=== PATIENT | male | born 1955 | race Caucasian/White ===

== ENCOUNTER 2022-03-05 10:47 | Inpatient (IN) | payer MEDICAID, SELFPAY ==
[2022-03-05] VITALS (9 sets, daily range): BP systolic 116–147; BP diastolic 57–94; PULSE 74–91; RESP 17–22; TEMP 36.9–37.1; O2SAT 91–95; BMI 26.4; BMI 28.3
--- NOTE | 2022-03-05 12:23 | ECG_ITS ---
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 Measurements Intervals [place] Rate: 84 P: 69 GA: 171 QRS: -22 QRSD: 105 T: -1 QT: 382 QTc: 452 Interpretive Statements SINUS RHYTHM WITH OCCASIONAL VENTRICULAR PREMATURE COMPLEXES POSSIBLE RIGHT VENTRICULAR CONDUCTION DELAY [RSR (QR) IN V1/V2] SEPTAL MYOCARDIAL INFARCTION , OF INDETERMINATE AGE [40+ ms Q WAVE IN V1/V2] No previous ECG available for comparison Electronically Signed On 03-05-2022 21:16:41 CDT by Mitzi Moe M.D. [id number]
--- NOTE | 2022-03-05 12:23 | XRR_ITS ---
PROCEDURE INFORMATION: Exam: XR Chest Exam date and time: 03/05/2022 2:11 PM Age: 67 years old Clinical indication: Cough and dyspnea; Additional info: Dyspnea/cough TECHNIQUE: Imaging protocol: Radiologic exam of the chest. Views: 1 view. COMPARISON: No relevant prior studies available. FINDINGS: Lungs: Unremarkable. No consolidation. Pleural spaces: Unremarkable. No pleural effusion. No pneumothorax. Heart/Mediastinum: Unremarkable. No cardiomegaly. Bones/joints: Unremarkable. Other findings: Metallic postoperative changes over the cervicothoracic spine with/without metallic artifact. Mild left basilar atelectasis and/or infiltrate and/or scarring. XR/XR chest 1V portable [id number] IMPRESSION: Mild left basilar atelectasis and/or infiltrate and/or scarring.
--- NOTE | 2022-03-05 14:43 | XR_ITS ---
WS: [id number] XR hand RT min 3V* [id number] REASON FOR EXAM: R hand ulcer FINDINGS: No fracture. Mild to moderate changes of osteoarthritis in the joints of the thumb and the DIP joints of the secon d through the fifth fingers. No erosion or periosteal reaction is seen. No radiopaque foreign body in the soft tissues. Vascular calcification overlying the radial ulnar joint. XR/XR hand RT min 3V* [id number] IMPRESSION: Mild to moderate changes of osteoarthritis with no acute abnormality.
[2022-03-05 14:44] LABS: Basophils # 0.1 10^3/uL (0.0-0.1); Basophils % 0.5 %; Eosinophils % 0.2 %; Hematocrit 36.6 % (42.0-52.0); Lymphocytes # 0.8 10^3/uL (0.8-4.8); Lymphocytes % 4.9 %; Mean Corpuscular HGB Conc 32.8 g/dL (30.0-36.0); Mean Corpuscular Hemoglobin 28.4 pg (28.0-34.0); Mean Corpuscular Volume 86.7 fl (80-94); Mean Platelet Volume 10.1 fL (7.4-10.4); Monocytes # 0.6 10^3/uL (0.2-0.9); Monocytes % 3.8 %; Neutrophils # 14.26 10^3/uL (1.8-7.7); Neutrophils % 87.9 %; Nucleated Red Blood Cells % 0 %; Platelet Count 378 10^3/cmm (130-400); Red Blood Count 4.22 10^6/uL (4.1-5.3); Red Cell Distribution Width 15.5 % (12.1-15.1); White Blood Count 16.2 10^3/uL (4.0-10.0)
--- NOTE | 2022-03-05 14:44 | USCV_ITS ---
Nemesio Newberry Age: 67 Gender: M : 1955 Exam Date: 03/05/2022 15:02 Ordering Phys: Oren Nesbitt MD Technologist: Noble Dover Exam Location: [facility] [place]_ Indication: swelling PROCEDURES: Venous duplex imaging was performed in bilateral lower extremities. The following venous structures were evaluated: common femoral vein, profunda vein, proximal portion of the greater saphenous vein, superficial femoral vein, and the popliteal vein. In addition, the posterior tibial and peroneal trunk were evaluated. Serial compression, augmentation maneuvers, and spectral Doppler flow evaluation were performed. FINDINGS: Normal 2-D Doppler and augmentation and compressibility throughout the lower extremity venous structures. Additional imaging through the proximal calf veins also reveals no thrombus. Limited evaluation of the greater saphenous vein is patent with no thrombus.. CONCLUSIONS No evidence of right lower extremity DVT. No evidence of left lower extremity DVT. Anselmo Kim MD (Electronically Signed) Final Date: 05 March 2022 17:38 S
[2022-03-05 15:11] LABS: Troponin(5th) Baseline 36 ng/L (0-15)
[2022-03-05 15:13] LABS: Alanine Aminotransferase 44 U/L (0-41); Albumin Level 2.9 g/dL (3.5-5.2); Alkaline Phosphatase 94 IU/L (40-130); Anion Gap 15.2 (5-19); Aspartate Amino Transferase 42 U/L (0-40); Blood Urea Nitrogen 29 mg/dL (8-23); Calcium 8.7 mg/dL (8.5-10.5); Carbon Dioxide 29 mmol/L (22-29); Chloride 92 mmol/L (98-107); Creatinine Clr Calc Pharmacy 93.5858; Globulin 4.2 g/dL (1.3-4.6); Glomerular Filtration Rate 83.9 mL/min (90-130); Glucose 104 mg/dL (65-115); Osmolality Calculated 282 mOsm/kg (285-295); Potassium 3.2 mmol/L (3.5-5.1); Sodium 133 mmol/L (136-145); Total Bilirubin 0.8 mg/dL (0.15-1.2); Total Protein 7.1 g/dL (6.6-8.7)
[2022-03-05 15:29] LABS: C Reactive Protein 225.9 mg/L (0.0-4.9)
--- NOTE | 2022-03-05 15:43 | W.ED.GENADLT ---
HPI - General Adult General: Chief complaint: Shortness of Breath/Dyspnea Stated complaint: SOB Time Seen by Provider: 03/05/22 14:00 History of Present Illness: Patient is a 67-year-old male with a history of hypothyroidism, paroxysmal atrial fibrillation on Eliquis presenting to the emergency room for concerns of shortness of breath, generalized weakness, and not feeling well. Patient tells me that he has been feeling this way for few days now. In addition, patient has symptoms of dysuria without flank pain nausea/vomiting, fever or chills. Patient states that she has a cut over. Patient tells me that he is chronically bedbound because of the swelling in his leg. Patient report redness on his right leg has been going on for the last few weeks. In addition, patient also referred an ulcer on his right hand for few weeks. Patient denies any IV drug use denies any history of diabetes. Patient tells me that his legs are swollen and he has had difficulty moving. Patient reports ongoing cough. Onset:2 weeks Duration:2 weeks Location:home Severity:moderate Associated symptoms: Reports dyspnea and malaise; Deny chest pain, nausea, rash, palpitations or vomiting Review of Systems Const: Reports: chills, malaise and other (+generalized weakness); Denies: fever(s) Eyes: Denies: change in vision ENMT: Denies: mouth pain Card: Denies: chest pain or palpitations Resp: Reports: dyspnea; Denies: non-productive cough GI: Denies: abdominal pain, nausea, vomiting or diarrhea : Denies: dysuria Musc: Denies: extremity pain Skin/Breast: Denies: rash or new lesions Neuro: Denies: weakness in extremities Psych: Reports: other (Normal mood) Dante/Lymph: Denies: easy bruising PFS ED PFSH: Medical History (Updated 03/05/22 @ 18:56 by Jovan Clarke MD) Atrial fibrillation DVT (deep venous thrombosis) Hypothyroidism Pulmonary embolism Surgical History (Updated 03/05/22 @ 18:56 by Jovan Clarke MD) H/O cervical spine surgery History of tonsillectomy Social History Smoking and tobacco status: never smoked Alcohol intake: never Substance/Drug Use: never Physical Exam Const: COMMON NORMALS: alert HENMT: COMMON NORMALS: atraumatic HEAD & SCALP: atraumatic MOUTH: moist mucous membranes not abnormal Eye: COMMON NORMALS: EOMs intact bilaterally and conjunctivae normal CONJUNCTIVA: Yes conjunctivae normal Neck/C-Spine: COMMON NORMALS: full ROM and supple Resp: COMMON NORMALS: normal respiratory effort and clear to auscultation bilaterally AUSCULTATION: clear to auscultation bilaterally Cardio: COMMON NORMALS: regular rate RATE: regular rate GI: COMMON NORMALS: Soft to palpation and non-tender PALPATION: Yes Soft to palpation Extremity: COMMON NORMALS: full ROM Neuro: SENSORIUM/ORIENTATION: Yes alert MOTOR EXAM: No Abnormal motor strength present and Other motor observations present (no focal motor deficits) Psych: COMMON NORMALS: speech normal SPEECH: Yes normal speech MOOD & AFFECT: Yes euthymic mood Course Vital Signs: Vital signs: Vital Signs Temperature 98.7 F 03/05/22 16:30 Pulse Rate 79 03/05/22 18:30 Respiratory Rate 18 03/05/22 17:30 Blood Pressure 116/57 03/05/22 17:30 Pulse Oximetry 93 03/05/22 18:30 [facility] - General Adult Medical Decision Making 67-year-old male with a history of proximal atrial fibrillation, hypothyroidism presenting to the emergency room with respiratory distress, generalized weakness, fatigue worsening over the last 2 weeks. On physical exam, patient is noted to have coarse breath sounds bilaterally. Patient has O2 sat of 90 to 91% on room air. X-rays show left-sided infiltrate versus atelectasis. Patient started back on 16.2. Patient is noted to be satting at 91 to 90% on room air. No prior requirement of oxygen. CTA is pending at this time. Patient is noted to have erythema over the right leg. This is concerning for soft possible venous stasis versus cellulitis. Patient received vancomycin, azithromycin and ceftriaxone. Ultrasound lower extremities negative for DVT. Incidental findings of 44mm thoracic aortia discussed extensively with patient. Patient received a copy of the CT report with the documented findings. Patient is instructed to follow up urgently with specialists. Disposition: admission Lab Data : 03/05/22 14:30 03/05/22 14:30 Radiology Impressions Chest X-Ray 03/05/22 12:23 IMPRESSION: Mild left basilar atelectasis and/or infiltrate and/or scarring. Hand X-Ray 03/05/22 14:43 IMPRESSION: Mild to moderate changes of osteoarthritis with no acute abnormality. Chest CTA 03/05/22 16:47 IMPRESSION: 1. 44 mm ascending aortic aneurysm without rupture. 2. Mild right axillary adenopathy which may be reactive. 3. No pulmonary embolus or aortic dissection. 4. Severe fatty infiltration of the liver. Laboratory Results WBC 16.2 10^3/uL (4.0-10.0) H 03/05/22 14:30 RBC 4.22 10^6/uL (4.1-5.3) 03/05/22 14:30 Hgb 12.0 g/dL (11.7-16.6) 03/05/22 14:30 Hct 36.6 % (42.0-52.0) L 03/05/22 14:30 MCV 86.7 fl (80-94) 03/05/22 14:30 MCH 28.4 pg (28.0-34.0) 03/05/22 14:30 MCHC 32.8 g/dL (30.0-36.0) 03/05/22 14:30 RDW 15.5 % (12.1-15.1) H 03/05/22 14:30 Plt Count 378 10^3/cmm (130-400) 03/05/22 14:30 MPV 10.1 fL (7.4-10.4) 03/05/22 14:30 Neut % (Auto) 87.9 % 03/05/22 14:30 Lymph % (Auto) 4.9 % 03/05/22 14:30 [place] % (Auto) 3.8 % 03/05/22 14:30 Eos % (Auto) 0.2 % 03/05/22 14:30 Baso % (Auto) 0.5 % 03/05/22 14:30 Neut # (Auto) 14.26 10^3/uL (1.8-7.7) H 03/05/22 14:30 Lymph # (Auto) 0.8 10^3/uL (0.8-4.8) 03/05/22 14:30 [place] # (Auto) 0.6 10^3/uL (0.2-0.9) 03/05/22 14:30 Eos # (Auto) 0.0 10^3/uL (0.0-0.8) 03/05/22 14:30 Baso # (Auto) 0.1 10^3/uL (0.0-0.1) 03/05/22 14:30 Nucleated RBC % (auto) 0 % 03/05/22 14:30 Nucleated RBCs # 0.0 /100WBC 03/05/22 14:30 Sodium 133 mmol/L (136-145) L 03/05/22 14:30 Potassium 3.2 mmol/L (3.5-5.1) L 03/05/22 14:30 Chloride 92 mmol/L (98-107) L 03/05/22 14:30 Carbon Dioxide 29 mmol/L (22-29) 03/05/22 14:30 Anion Gap 15.2 (5-19) 03/05/22 14:30 BUN 29 mg/dL (8-23) H 03/05/22 14:30 Creatinine 0.9 mg/dL (0.7-1.2) 03/05/22 14:30 GFR Calculation 83.9 mL/min (90-130) L 03/05/22 14:30 Glucose 104 mg/dL (65-115) 03/05/22 14:30 Calculated Osmolality 282 mOsm/kg (285-295) L 03/05/22 14:30 Calcium 8.7 mg/dL (8.5-10.5) 03/05/22 14:30 Total Bilirubin 0.8 mg/dL (0.15-1.2) 03/05/22 14:30 AST 42 U/L (0-40) H 03/05/22 14:30 ALT 44 U/L (0-41) H 03/05/22 14:30 Alkaline Phosphatase 94 IU/L (40-130) 03/05/22 14:30 Troponin T Baseline 36 ng/L (0-15) H 03/05/22 14:30 C-Reactive Protein 225.9 mg/L (0.0-4.9) H 03/05/22 14:50 Total Protein 7.1 g/dL (6.6-8.7) 03/05/22 14:30 Albumin 2.9 g/dL (3.5-5.2) L 03/05/22 14:30 Globulin 4.2 g/dL (1.3-4.6) 03/05/22 14:30 Imaging Data Other Imaging: Radiologist's impression: [facility] [address] [place] [address] XRay Report Signed Patient: Nemesio Newberry Unit #: [id number] : 1955 Age/Sex: 67 / M ADM Date: 03/05/22 Loc: ER Room/Bed: Attending Dr: Ordering Provider/Ordering MD: Oren Nesbitt MD Date of Service: 03/05/22 Procedure(s): XR hand RT min 3V* [id number] Accession Number(s): [id number] Report Number: [id number] WS: [id number] XR hand RT min 3V* [id number] REASON FOR EXAM: R hand ulcer FINDINGS: No fracture. Mild to moderate changes of osteoarthritis in the joints of the thumb and the DIP joints of the second through the fifth fingers. No erosion or periosteal reaction is seen. No radiopaque foreign body in the soft tissues. Vascular calcification overlying the radial ulnar joint. XR/XR hand RT min 3V* [id number] IMPRESSION: Mild to moderate changes of osteoarthritis with no acute abnormality. ? ? Dictated By: Josue Scales Jr, MD Signed By: Josue Scales Jr, MD Signed Date/Time: 03/05/22 1526 DD/ [address] [address] XRay Report Signed Patient: Nemesio Newberry Unit #: [id number] : 1955 Age/Sex: 67 / M ADM Date: 03/05/22 Loc: ER Room/Bed: Attending Dr: Ordering Provider/Ordering MD: Felix Polo DO Date of Service: 03/05/22 Procedure(s): XR chest 1V portable [id number] Accession Number(s): [id number] Report Number: [id number] PROCEDURE INFORMATION: Exam: XR Chest Exam date and time: 03/05/2022 2:11 PM Age: 67 years old Clinical indication: Cough and dyspnea; Additional info: Dyspnea/cough TECHNIQUE: Imaging protocol: Radiologic exam of the chest. Views: 1 view. COMPARISON: No relevant prior studies available. FINDINGS: Lungs: Unremarkable. No consolidation. Pleural spaces: Unremarkable. No pleural effusion. No pneumothorax. Heart/Mediastinum: Unremarkable. No cardiomegaly. Bones/joints: Unremarkable. Other findings: Metallic postoperative changes over the cervicothoracic spine with/without metallic artifact. Mild left basilar atelectasis and/or infiltrate and/or scarring. XR/XR chest 1V portable [id number] IMPRESSION: Mild left basilar atelectasis and/or infiltrate and/or scarring. ? Dictated By: Bret Jorge MD Signed By: Bret Jorge MD Signed Date/Time: 03/05/227 DD/ 141 Launch?Image [facility] [address] [place] [address] Scan Report Signed Patient: Nemesio Newberry Unit #: [id number] : 1955 Age/Sex: 67 / M ADM Date: 03/05/22 Loc: [facility] Room/Bed: [facility] Attending Dr: Jovan Clarke MD Ordering Provider/Ordering MD: Oren Nesbitt MD Date of Service: 03/05/22 Procedure(s): CT angio chest PE protcl [id number] Accession Number(s): [id number] Report Number: [id number] PROCEDURE INFORMATION: Exam: CTA Chest With Contrast Exam date and time: 03/05/2022 6:24 PM Age: 67 years old Clinical indication: Shortness of breath; Prior surgery; Surgery type: Cervical fusion; Patient HX: C/O SOB. Hypoxic on monitor. ; Additional info: Immobility, hypoxemia, fatigue TECHNIQUE: Imaging protocol: Computed tomographic angiography of the chest with contrast. 3D rendering (Not supervised by radiologist): MIP and/or 3D reconstructed images were created by the technologist. Radiation optimization: All CT scans at this facility use at least one of these dose optimization techniques: automated exposure control; mA and/or kV adjustment per patient size (includes targeted exams where dose is matched to clinical indication); or iterative reconstruction. Contrast material: OMNI 350; Contrast volume: 70 ml; Contrast route: INTRAVENOUS (IV);? COMPARISON: CR XR chest 1V portable [id number] 03/05/2022 2:11 PM RADIATION DOSE METRICS: Total DLP (mGy-cm): 581.61 FINDINGS: Pulmonary arteries: No pulmonary embolus or aortic dissection. Great vessels off aortic arch: Aberrant origin of the right subclavian artery which is usually not associated with other congenital heart disease. This is essentially a normal variant. Aorta: Calcification of the thoracic aorta and/or great vessels consistent with atherosclerotic vessel disease. 44 mm ascending aortic aneurysm without rupture. Lungs: Mild bibasilar atelectasis and/or infiltrate and/or scarring. Pleural spaces: Unremarkable. No pneumothorax. No pleural effusion. Heart: See Great vessels off aortic arch finding. Lymph nodes: Mild right axillary adenopathy which may be reactive. Liver: Severe fatty infiltration of the liver. Bones/joints: Dextroscoliosis. Moderate thoracic spondylosis. Lower cervical laminectomies with metallic fixation. Soft tissues: Unremarkable. CT/CT angio chest PE protcl [id number] IMPRESSION: 1. 44 mm ascending aortic aneurysm without rupture. 2. Mild right axillary adenopathy which may be reactive. 3. No pulmonary embolus or aortic dissection. 4. Severe fatty infiltration of the liver. ? Dictated By: Bret Jorge MD Signed By: Bret Jorge MD Signed Date/Time: 03/05/221908 DD/ 23 Discharge Plan Discharge Patient Disposition: Admitted As Inpatient Admit Provider: Jovan Clarke Clinical Impression: Pneumonia, Cellulitis Condition: Stable Coding Level of Care Code ED Box Sealing Machine Catcher for Chg Fwd Exam Comprehensive
--- NOTE | 2022-03-05 16:40 | PC.NURSE ---
Report received from ADELIA Velez. Patient cleaned of urinary incontinence. Redness noted to right upper and lower extremity. Coccyx is red, beginning stages of breakdown noted. Scabbing noted to scrotum.
--- NOTE | 2022-03-05 16:47 | CTR_ITS ---
PROCEDURE INFORMATION: Exam: CTA Chest With Contrast Exam date and time: 03/05/2022 6:24 PM Age: 67 years old Clinical indication: Shortness of breath; Prior surgery; Surgery type: Cervical fusion; Patient HX: C/O SOB. Hypoxic on monitor. ; Additional info: Immobility, hypoxemia, fatigue TECHNIQUE: Imaging protocol: Computed tomographic angiography of the chest with contrast. 3D rendering (Not supervised by radiologist): MIP and/or 3D reconstructed images were created by the technologist. Radiation optimization: All CT scans at this facility use at least one of these dose optimization techniques: automated exposure control; mA and/or kV adjustment per patient size (includes targeted exams where dose is matched to clinical indication); or iterative reconstruction. Contrast material: OMNI 350; Contrast volume: 70 ml; Contrast route: INTRAVENOUS (IV); COMPARISON: CR XR chest 1V portable [id number] 03/05/2022 2:11 PM RADIATION DOSE METRICS: Total DLP (mGy-cm): 581.61 FINDINGS: Pulmonary arteries: No pulmonary embolus or aortic dissection. Great vessels off aortic arch: Aberrant origin of the right subclavian artery which is usually not associated with other congenital heart disease. This is essentially a normal variant. Aorta: Calcification of the thoracic aorta and/or great vessels consistent with atherosclerotic vessel disease. 44 mm ascending aortic aneurysm without rupture. Lungs: Mild bibasilar atelectasis and/or infiltrate and/or scarring. Pleural spaces: Unremarkable. No pneumothorax. No pleural effusion. Heart: See Great vessels off aortic arch finding. Lymph nodes: Mild right axillary adenopathy which may be reactive. Liver: Severe fatty infiltration of the liver. Bones/joints: Dextroscoliosis. Moderate thoracic spondylosis. Lower cervical laminectomies with metallic fixation. Soft tissues: Unremarkable. CT/CT angio chest PE protcl [id number] IMPRESSION: 1. 44 mm ascending aortic aneurysm without rupture. 2. Mild right axillary adenopathy which may be reactive. 3. No pulmonary embolus or aortic dissection. 4. Severe fatty infiltration of the liver.
[2022-03-05] MEDS: cefTRIAXone 1,000 MG in sodium chloride 0.9% (plus) 50 ML 100 MG IV (17:27)
--- NOTE | 2022-03-05 17:32 | PC.NURSE ---
Patient repositioned on right side and given urinal.
[2022-03-05 17:40] LABS: Troponin 5 2HR 33.18 ng/L (0-15)
[2022-03-05 17:41] LABS: Troponin 5 2HR Delta -2.82 ABS# (0-10)
--- NOTE | 2022-03-05 18:23 | ECG_ITS ---
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 Measurements Intervals [place] Rate: 75 P: 60 NV: 166 QRS: -1 QRSD: 105 T: 8 QT: 403 QTc: 451 Interpretive Statements SINUS RHYTHM SEPTAL MYOCARDIAL INFARCTION , PROBABLY OLD [40+ ms Q WAVE IN V1/V2] Compared to ECG 03/05/2022 14:43:44 Ventricular premature complex(es) no longer present Myocardial infarct finding still present Electronically Signed On 03-06-2022 20:49:54 CDT by Akash Laboy M.D. [email or web address].[employer]/store/OM/[id number]/[id number]
--- NOTE | 2022-03-05 18:25 | PM.HP ---
Providers/Chief Complaint Admitting Physician: Jovan Clarke MD Chief Complaint: SOB History of Present Illness Nemesio Newberry is a 67 year old male who is wheelchair-bound secondary to his spine surgery which she is attributing to a mass in his spine which was compressing his nerves, hypertensive, lives with his girlfriend, vaccinated for COVID-19 presented today with chief complaint of not able to get up on his own and shortness of breath. Patient is stating that for last 6 months he has been using wheelchair, today when he got up he was not able to transfer himself out of the bed to a wheelchair normally he is able to do so without any difficulty but today he became extremely short of breath. No recent fever, diarrhea, chest pain, orthopnea PND. Diagnosis in the ER revealed leukocytosis, purulent cellulitis of his legs, there is erythema, he is already on Eliquis for DVT of his legs, he also has history of PE His girlfriend takes care of him at home, He has been administered IV antibiotics, he was on fluids when I saw him I have requested Harrington catheter placement, Lasix, discontinuation of IV fluids, COVID PCR at this point he is requiring 2 L of oxygen, he is mildly tachypneic having conversational dyspnea, mild vascular congestion on chest x-ray Review of Systems Const: Reports: chills and body aches Eyes: Denies: change in vision ENMT: Denies: throat pain Card: Reports: swelling of feet/ankles and dyspnea on exertion; Denies: chest pain Resp: Reports: dyspnea GI: Denies: abdominal pain : Denies: flank pain Musc: Reports: extremity pain, joint redness and joint warmth Skin/Breast: Reports: rash, erythema, skin tenderness and skin swelling Neuro: Denies: headache(s) Psych: Denies: anxiety Endo: Denies: polyuria Dante/Lymph: Denies: easy bruising All/Imm: Denies: urticaria Medications/Allergies Home Medications Medication Instructions Recorded Confirmed Last Taken Type apixaban 5 mg tablet (Eliquis) 5 mg PO BID 03/05/22 03/05/22 03/05/22 History duloxetine 30 mg capsule,delayed 30 mg PO DAILY 03/05/22 03/05/22 03/05/22 History release gabapentin 600 mg tablet 600 mg PO QID 03/05/22 03/05/22 03/05/22 History hydrochlorothiazide 25 mg tablet 25 mg PO DAILY 03/05/22 03/05/22 03/05/22 History levothyroxine 112 mcg tablet 112 mcg PO DAILY 03/05/22 03/05/22 03/05/22 History pantoprazole 40 mg tablet,delayed 40 mg PO DAILY 03/05/22 03/05/22 03/05/22 History release tizanidine 4 mg tablet 4 mg PO BID PRN 03/05/22 03/05/22 Unknown History Allergies Allergy/AdvReac Type Severity Reaction Status Date / Time Penicillins Allergy Unknown Verified 03/05/22 14:11 PFSH Acute PFSH: Medical History (Updated 03/05/22 @ 18:56 by Jovan Clarke MD) Atrial fibrillation DVT (deep venous thrombosis) Hypothyroidism Pulmonary embolism Surgical History (Updated 03/05/22 @ 18:56 by Jovan Clarke MD) H/O cervical spine surgery History of tonsillectomy Social History Smoking and tobacco status: never smoked Alcohol intake: never Substance/Drug Use: never Vitals/I&O/Wt Last Vital Signs Temp 98.7 F 03/05/22 16:30 Pulse 77 03/05/22 17:30 Resp 18 03/05/22 17:30 BP 116/57 03/05/22 17:30 Pulse Ox 93 03/05/22 17:30 Weight last 48 hrs Weight 90.718 kg Physical Exam Narrative: Patient has unkept appearance Poor hygiene He is well himself with his own urine Currently on 2 L, No adventitious rhonchi or crackles Tachypneic Has mild conversational dyspnea Afebrile Hemodynamically stable Awake and alert Purulent cellulitis of right dorsal side of his hand Bilateral extremity erythema with purulent cellulitis of right leg with sloughing of skin Erythema extending all the way up to his knees Awake and alert Toxic appearance Abdomen soft Poor skin hygiene Data : 03/05/22 14:30 03/05/22 14:30 Micro: Microbiology 03/05/22 16:50 Blood Culture - Preliminary Blood SPECIMEN COLLECTED 03/05/22 16:50 Blood Culture - Preliminary Blood SPECIMEN COLLECTED A&P Assessment and plan (1) Cellulitis: Status: Acute (2) Pneumonia: Status: Acute Plan purulent cellulitis I will start him on vancomycin and aztreonam he has penicillin allergies Check CRP, he is already on Eliquis No signs of DVT for Edema of legs I would use Lasix Wound care with Martín wrap, Kerlix, bacitracin ointment twice a day Acute hypoxia related to left-sided pneumonia chest x-ray consistent with mild vascular congestion and atelectasis Currently on antibiotics DuoNeb treatment Check COVID PCR Check BNP Hypokalemia: Repleted Hypothyroid: Continue with oxygen at 112 mcg Full code Cardiac diet DVT prophylaxis will be covered with home regimen of Eliquis Because of history of PE and DVT of bilateral lower extremities and right upper arm superficial vein clot Attestations Medical Necessity Statement*: Anticipating discharge within 48 hours Time Spent in Patient Care: 35 Coding Level of Care Code Acute Drop Wire Aliner for Shailesh Ewing Diagnoses Cellulitis L03.90 Pneumonia J18.9
[2022-03-05] MEDS: iohexol 350 mg/mL 100 mL Btl IV (18:35)
--- NOTE | 2022-03-05 18:41 | PC.NURSE ---
Report called to ADELIA Joés. Patient cleaned of urinary incontinence
[2022-03-05] MEDS: azithromycin 500 MG in sodium chloride 0.9% 250 ML 250 MG IV (18:47)
--- NOTE | 2022-03-05 19:08 | PC.NURSE ---
Report to ADELIA Louis
--- NOTE | 2022-03-05 20:30 | PC.PHAR ---
Vancomycin is dosed at 1500mg IVPB every 12 hours to produce a predicted trough level of 15.82 (population based pharmacokinetic analysis). A trough level has been ordered from the lab to be obtained before the fourth dose to confirm and adjust if needed.
[2022-03-05 20:57] LABS: Troponin 5 6HR 39.79 ng/L (0-15)
[2022-03-05 21:01] LABS: Troponin 5 6HR Delta 3.79 ng/L (0-12)
[2022-03-05 21:03] LABS: Glucose Point of Care 111 mg/dL (70-110)
[2022-03-05 21:05] LABS: NT Pro B Type Natriuretic Pept 684 pg/mL (0-125); Procalcitonin 0.48 ng/mL (0-0.5)
[2022-03-05] MEDS: potassium chloride ER 20 mEq Tablet 40 MEQ PO (21:23)
[2022-03-05] MEDS: vancomycin 1,500 MG/300 ML PIGGYBACK 150 MG IV (21:24)
[2022-03-05] MEDS: gabapentin 300 mg Capsule 600 MG PO (21:24)
[2022-03-05] MEDS: ipratropium-albuterol 3 mL Neb INHALATION (21:51)
[2022-03-05] MEDS: budesonide 0.5 mg/2 mL Neb INHALATION (21:52)
[2022-03-05 22:18] LABS: ABG PCO2 40.5 mmHg (35-45); ABG PH Result 7.51 (7.35-7.45); Base Excess ABG 8.5 mmol/L (-2.0-2.0); Blood Gas Allen Test Pos; Blood Gas Operator Identificat JB; Blood Gas Sample Site Radial, right; Blood Gas Sample Type Arterial; HCO3 ABG 32.4 mmol/L (22-26); Oxygen Device NC; PO2 ABG 49.3 mmHg (80.0-100.0)
[2022-03-05 23:44] LABS: Estmated Average Glucose 123; Hemoglobin A1C 5.9 % (4.0-6.0)
[2022-03-06] VITALS (7 sets, daily range): PULSE 57–76; RESP 16–23; O2SAT 92–97
[2022-03-06] MEDS: bacitracin ointment Pkt 1 EACH TOPICAL ×3 (00:04→21:44)
[2022-03-06 01:57] LABS: Add Urine Culture? Yes; Add Urine Microscopic? YES; Bacteria Urine 2+ /hpf; Bilirubin Urine Neg (Negative); Blood Urine 3+ (Negative); Glucose Urine UA Norm (Normal); Ketones Urine 1+ (Negative); Leukocyte Esterase Urine Negative (Negative); Nitrate Urine Negative (Negative); Protein Urine 1+ (Negative); RBC Urine TOO NUMEROUS TO CNT /hpf (0-2); Squamous Epithelial Cell Urine 0-4 /hpf (0-5); Urine Appearance Clear (CLEAR); Urine Color Yellow (Yellow); Urobilinogen Urine 1 mg/dL (Negative); WBC Urine 0-4 /hpf (0-5); pH Urine 5 (5-7)
[2022-03-06] MEDS: ipratropium-albuterol 3 mL Neb INHALATION ×3 (03:35→20:20)
[2022-03-06] MEDS: morphine IR 15 mg Tablet PO (05:44)
[2022-03-06 06:30] LABS: Glucose Point of Care 104 mg/dL (70-110)
[2022-03-06] MEDS: budesonide 0.5 mg/2 mL Neb INHALATION ×2 (08:19→20:20)
--- NOTE | 2022-03-06 10:32 | PM.PN ---
Subjective Subjective: Patient is stating that he is feeling slightly better, he used BiPAP overnight until 6 AM, he was asking for breakfast tray Is able to change his position in the bed No acute worsening of his erythema and cellulitis of upper and lower extremity No active complaints Fatigued and lethargic COVID PCR is pending Afebrile Vitals/I&O/Wt Last Vital Signs Temp 98.7 F 03/05/22 16:30 Pulse 65 03/06/22 08:07 Resp 17 03/06/22 08:07 BP 116/57 03/05/22 17:30 Pulse Ox 94 03/06/22 08:07 03/05/22 03/06/22 03/06/22 22:59 06:59 14:59 Intake Total 420 / 420 0 / 420 Output Total 300 / 300 400 / 700 Balance 120 / 120 -400 / -280 Weight last 48 hrs Weight 94.801 kg Weight 90.718 kg Physical Exam Narrative: Patient is in semi-Joseph position Currently on 3 L No active respiratory distress Fatigued and lethargic He is asking for food tray Abdomen soft Unkept appearance Poor hygiene No worsening of erythema and cellulitis of his right hand and right lower extremity Nonfocal neuro exam Patient is wheelchair-bound S1, S2 No rhonchi or crackles Urinary Catheter Management: Harrington: Cath Placed During This Visit: no Reason for Continuing Indwelling Catheter: Acute Urinary Retention or Obstruction Data : 03/05/22 14:30 03/05/22 14:30 Micro: Microbiology 03/05/22 16:50 Blood Culture - Preliminary Blood SPECIMEN COLLECTED 03/05/22 16:50 Blood Culture - Preliminary Blood SPECIMEN COLLECTED A&P Assessment and plan (1) Pneumonia: Status: Acute (2) Cellulitis: Status: Acute (3) Wheelchair bound: Status: Acute Plan Acute hypoxic Rule out COVID-19 Concern for left-sided pneumonia No fever No signs of sepsis Acute heart failure EF unknown BNP 648, continue IV Lasix Request echo Patient is wheelchair-bound secondary to trauma to his spine and spine surgery Harrington catheter has been placed to facilitate him, At home he uses wheelchair to ambulate He has a Gfriend who takes care of him Purulent cellulitis of right lower extremity No signs of DVT No signs of PE Currently on broad-spectrum antibiotics Potassium repleted Hematuria on UA noted no signs of UTI Full code Cardiac diet 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
--- NOTE | 2022-03-06 10:37 | USCV_ITS ---
Tayo Newberry Age: 67 Gender: M : 1955 Exam Date: 03/06/2022 13:24 Ordering Phys: Jovan Clarke MD Technologist: Riki Villela Exam Location: [facility] [place] Indication: CHF BP: 132 / 83 HR: 68 Rhythm: Sinus Technical Quality: MEASUREMENTS (Male / Female) Normal Values 2D ECHO LV Diastolic Diameter PLAX 5.7 cm 4.2 - 5.9 / 3.9 - 5.3 cm LV Systolic Diameter PLAX 3.5 cm IVS Diastolic Thickness 1.1 cm 0.6 - 1.0 / 0.6 - 0.9 cm IVS Systolic Thickness 1.6 cm LVPW Diastolic Thickness 1.1 cm 0.6 - 1.0 / 0.6 - 0.9 cm LVPW Systolic Thickness 1.4 cm LVOT Diameter 2.1 cm LV Ejection Fraction 2D Teich 68.7 % LA Diameter 3.5 cm Aorta at Sinotubular Diameter 3.2 cm M-MODE Aortic Annulus Diameter 4.5 cm LA Ao Ratio MM 0.9 MV E Point Septal Separation 0.7 cm DOPPLER AV Peak Velocity 166.0 cm/s LVOT Peak Velocity 109.0 cm/s AV Area Cont Eq vti 2.3 cm squared AV Area Cont Eq pk 2.2 cm squared MV Area PHT 2.6 cm squared Mitral E to A Ratio 1.4 MV E' Velocity 72.0 cm/s Mitral E to MV E' Ratio 8.8 Mitral E to LV E' Lateral Ratio 7.0 Mitral E to LV E' Septal Ratio 11.7 TR Peak Velocity 255.0 cm/s TR Peak Gradient 26.0 mmHg TV Peak E Velocity 78.0 cm/s Right Atrial Pressure 3.0 mmHg Pulmonary Artery Systolic Pressu 29.0 mmHg PV Peak Velocity 108.0 cm/s FINDINGS Left Ventricle Normal left ventricular size and systolic function, EF 69%mild left ventricular hypertrophy. No regional wall motion abnormalities. Right Ventricle The right ventricle is normal in size and function. Right Atrium The right atrium is normal in size. Left Atrium The left atrium is normal in size. Mitral Valve Thickened mitral valve. Mild mitral valve regurgitation. Aortic Valve Thickened aortic valve. Whiy-br-[id number] aortic valve regurgitation. Tricuspid Valve Trace tricuspid valve regurgitation. Estimated pulmonary artery peak systolic pressure of 29 mmHg Pulmonic Valve No gross abnormalities noted Pericardium Normal pericardium without effusion. Aorta Normal ascending aorta dimension. IVC Inferior vena cava not visualized. CONCLUSIONS Normal left ventricular size and systolic function, EF 69%mild left ventricular hypertrophy. No regional wall motion abnormalities. Thickened mitral valve. Mild mitral valve regurgitation. Thickened aortic valve. Ayng-ep-svgeejch aortic valve regurgitation. Trace tricuspid valve regurgitation. Estimated pulmonary artery peak systolic pressure of 29 mmHg. There is no pericardial effusion. There are no intracardiac masses. No similar previous studies are available for comparison Dr Mitzi Moe MD [facility] (Electronically Signed) Final Date: 07 March 2022 00:46 S
[2022-03-06] MEDS: vancomycin 1,500 MG/300 ML PIGGYBACK 150 MG IV ×2 (11:01→21:44)
[2022-03-06] MEDS: FUROsemide 10 mg/mL SDV 10mL 60 MG IVP (11:06)
[2022-03-06] MEDS: apixaban 5 mg Tablet PO ×2 (11:09→18:30)
[2022-03-06] MEDS: levothyroxine 112 mcg Tablet PO (11:09)
[2022-03-06] MEDS: gabapentin 300 mg Capsule 600 MG PO ×4 (11:09→21:45)
[2022-03-06] MEDS: duloxetine 30 mg Capsule PO (11:09)
[2022-03-06] MEDS: potassium chloride ER 20 mEq Tablet 40 MEQ PO (11:09)
[2022-03-06] MEDS: sennosides-docusate Tablet 1 TAB PO (11:10)
[2022-03-06] MEDS: pantoprazole DR 40 mg Tablet PO (11:10)
[2022-03-06 12:33] LABS: Glucose Point of Care 105 mg/dL (70-110)
[2022-03-06 16:56] LABS: Glucose Point of Care 112 mg/dL (70-110)
[2022-03-06] MEDS: azithromycin 500 MG in sodium chloride 0.9% 250 ML 250 MG IV (18:29)
[2022-03-06 21:29] LABS: Glucose Point of Care 98 mg/dL (70-110)
[2022-03-07] VITALS (13 sets, daily range): BP systolic 110–151; BP diastolic 64–86; PULSE 56–73; RESP 16–20; TEMP 36.5–37.1; O2SAT 90–94
[2022-03-07] MEDS: ipratropium-albuterol 3 mL Neb INHALATION ×3 (01:56→20:08)
[2022-03-07] MEDS: morphine IR 15 mg Tablet PO ×2 (04:22→21:32)
[2022-03-07 06:18] LABS: Glucose Point of Care 102 mg/dL (70-110)
[2022-03-07 07:08] LABS: Basophils # 0.1 10^3/uL (0.0-0.1); Basophils % 0.4 %; Eosinophils # 0.1 10^3/uL (0.0-0.8); Eosinophils % 0.6 %; Hematocrit 33.8 % (42.0-52.0); Hemoglobin 10.7 g/dL (11.7-16.6); Lymphocytes # 1.1 10^3/uL (0.8-4.8); Lymphocytes % 9.3 %; Mean Corpuscular HGB Conc 31.7 g/dL (30.0-36.0); Mean Corpuscular Hemoglobin 28.4 pg (28.0-34.0); Mean Corpuscular Volume 89.7 fl (80-94); Mean Platelet Volume 10.2 fL (7.4-10.4); Monocytes # 0.6 10^3/uL (0.2-0.9); Monocytes % 4.9 %; Neutrophils # 9.74 10^3/uL (1.8-7.7); Neutrophils % 80.9 %; Nucleated Red Blood Cells % 0 %; Platelet Count 391 10^3/cmm (130-400); Red Blood Count 3.77 10^6/uL (4.1-5.3); Red Cell Distribution Width 15.7 % (12.1-15.1)
[2022-03-07 07:20] LABS: Anion Gap 11.3 (5-19); Blood Urea Nitrogen 17 mg/dL (8-23); C Reactive Protein 154.4 mg/L (0.0-4.9); Calcium 8.3 mg/dL (8.5-10.5); Carbon Dioxide 31 mmol/L (22-29); Chloride 101 mmol/L (98-107); Glomerular Filtration Rate 112.1 mL/min (90-130); Glucose 95 mg/dL (65-115); Magnesium 2.3 mg/dL (1.7-2.3); Osmolality Calculated 291 mOsm/kg (285-295); Potassium 3.3 mmol/L (3.5-5.1); Sodium 140 mmol/L (136-145)
[2022-03-07] MEDS: budesonide 0.5 mg/2 mL Neb INHALATION ×2 (07:33→20:08)
[2022-03-07] MEDS: aztreonam 1,000 MG in sodium chloride 0.9% (plus) 50 ML 100 MG IV ×2 (07:38→20:29)
[2022-03-07 08:42] LABS: Vancomycin Trough 17.3 ug/mL (10-15)
[2022-03-07] MEDS: vancomycin 1,500 MG/300 ML PIGGYBACK 150 MG IV ×2 (09:02→23:10)
[2022-03-07] MEDS: gabapentin 300 mg Capsule 600 MG PO ×4 (09:07→20:30)
[2022-03-07] MEDS: pantoprazole DR 40 mg Tablet PO (09:08)
[2022-03-07] MEDS: apixaban 5 mg Tablet PO ×2 (09:08→18:28)
[2022-03-07] MEDS: duloxetine 30 mg Capsule PO (09:08)
[2022-03-07] MEDS: potassium chloride ER 20 mEq Tablet 40 MEQ PO (09:08)
[2022-03-07] MEDS: sennosides-docusate Tablet 1 TAB PO (09:08)
[2022-03-07] MEDS: levothyroxine 112 mcg Tablet PO (09:08)
[2022-03-07] MEDS: FUROsemide 10 mg/mL SDV 10mL 60 MG IVP (09:09)
--- NOTE | 2022-03-07 10:23 | PM.PN ---
Subjective Subjective: Patient was agitated, refused BiPAP last night Currently on nasal cannula No overnight events he has been afebrile Hemodynamic stable Leukocytosis trending down Potassium 3.3 CRP trending down as well Cultures negative, MRSA PCR positive Vitals/I&O/Wt Last Vital Signs Temp 98.7 F 03/07/22 08:00 Pulse 59 L 03/07/22 08:00 Resp 18 03/07/22 08:00 BP 125/69 03/07/22 08:00 Pulse Ox 92 03/07/22 08:00 03/06/22 03/07/22 03/07/22 22:59 06:59 14:59 Intake Total 720 / 1020 720 / 720 Output Total 600 / 600 Balance 120 / 420 720 / 720 Weight last 48 hrs Weight 94.801 kg Weight 90.718 kg Physical Exam Narrative: Awake and alert Fatigue Nonfocal neuro exam Currently on nasal cannula Abdomen soft Erythema of right hand and right leg has not worsened Sloughing of skin No signs of vascular compromise Onychomycosis Unkept appearance Soft abdomen No audible stridor or wheezing Urinary Catheter Management: Harrington: Cath Placed During This Visit: no Reason for Continuing Indwelling Catheter: Acute Urinary Retention or Obstruction Data : 03/08/22 05:04 03/08/22 05:04 Micro: Microbiology 03/06/22 01:10 Urine Culture - Preliminary Urine,Clean Catch 03/05/22 16:50 Blood Culture - Preliminary Blood NEGATIVE TO DATE 03/05/22 16:50 Blood Culture - Preliminary Blood NEGATIVE TO DATE 03/05/22 21:10 MRSA Culture - Final Nose A&P Assessment and plan (1) Wheelchair bound: Status: Acute (2) Pneumonia: Status: Acute (3) Cellulitis: Status: Acute Plan Acute hypoxia my concern is related to COVID-19 pneumonia However afebrile COVID PCR is pending He also has left-sided infiltrate he is getting aztreonam and vancomycin MRSA PCR positive Leukocytosis trending down I might switch to doxycycline tomorrow Purulent cellulitis No worsening of erythema Continue broad-spectrum antibiotics for now Cultures negative to date De-escalate antibiotics tomorrow Bilateral lower extremity swelling I have continued his Lasix 60 mg IV daily Hypothyroid: Continue levothyroxine 112 mcg History of DVT continue Eliquis Patient wants to go back home once stable Full code Regular diet Attestations Medical Necessity Statement*: Continue medical management Time Spent in Patient Care: 30 Coding Level of Care Code Acute Flat Finisher for Chg Fwd Diagnoses Wheelchair bound Z99.3 Pneumonia J18.9 Cellulitis L03.90
[2022-03-07 11:42] LABS: Glucose Point of Care 129 mg/dL (70-110)
[2022-03-07 17:00] LABS: Glucose Point of Care 140 mg/dL (70-110)
[2022-03-07 17:27] LABS: Quest SARS-CoV-2 RNA NOT DETECTED (NOT DETECTED)
[2022-03-07] MEDS: azithromycin 500 MG in sodium chloride 0.9% 250 ML 250 MG IV (18:28)
[2022-03-07] MEDS: bacitracin ointment Pkt 1 EACH TOPICAL (20:31)
[2022-03-07 20:52] LABS: Glucose Point of Care 114 mg/dL (70-110)
[2022-03-08] VITALS (7 sets, daily range): BP systolic 115–136; BP diastolic 67–80; PULSE 57–64; RESP 15–18; TEMP 36.6–37.2; O2SAT 87–96
[2022-03-08 05:36] LABS: Basophils # 0.1 10^3/uL (0.0-0.1); Basophils % 0.6 %; Eosinophils # 0.3 10^3/uL (0.0-0.8); Eosinophils % 2.9 %; Hematocrit 33.5 % (42.0-52.0); Hemoglobin 11.1 g/dL (11.7-16.6); Lymphocytes # 1.4 10^3/uL (0.8-4.8); Lymphocytes % 13.8 %; Mean Corpuscular HGB Conc 33.1 g/dL (30.0-36.0); Mean Corpuscular Hemoglobin 28.8 pg (28.0-34.0); Mean Corpuscular Volume 86.8 fl (80-94); Mean Platelet Volume 9.9 fL (7.4-10.4); Monocytes # 0.5 10^3/uL (0.2-0.9); Neutrophils # 7.19 10^3/uL (1.8-7.7); Neutrophils % 73.8 %; Nucleated Red Blood Cells % 0 %; Platelet Count 412 10^3/cmm (130-400); Red Blood Count 3.86 10^6/uL (4.1-5.3); Red Cell Distribution Width 15.6 % (12.1-15.1); White Blood Count 9.8 10^3/uL (4.0-10.0)
[2022-03-08 06:00] LABS: Anion Gap 9.8 (5-19); Blood Urea Nitrogen 19 mg/dL (8-23); Calcium 8.1 mg/dL (8.5-10.5); Carbon Dioxide 31 mmol/L (22-29); Chloride 103 mmol/L (98-107); Glomerular Filtration Rate 112.1 mL/min (90-130); Glucose 131 mg/dL (65-115); Osmolality Calculated 294 mOsm/kg (285-295); Potassium 3.8 mmol/L (3.5-5.1); Sodium 140 mmol/L (136-145)
[2022-03-08 06:12] LABS: Glucose Point of Care 104 mg/dL (70-110)
[2022-03-08] MEDS: ipratropium-albuterol 3 mL Neb INHALATION (08:27)
[2022-03-08] MEDS: budesonide 0.5 mg/2 mL Neb INHALATION (08:28)
[2022-03-08] MEDS: pantoprazole DR 40 mg Tablet PO (09:03)
[2022-03-08] MEDS: apixaban 5 mg Tablet PO (09:03)
[2022-03-08] MEDS: duloxetine 30 mg Capsule PO (09:03)
[2022-03-08] MEDS: sennosides-docusate Tablet 1 TAB PO (09:03)
[2022-03-08] MEDS: levothyroxine 112 mcg Tablet PO (09:03)
[2022-03-08] MEDS: gabapentin 300 mg Capsule 600 MG PO (09:03)
[2022-03-08] MEDS: FUROsemide 20 mg Tablet PO (09:03)
[2022-03-08] MEDS: aztreonam 1,000 MG in sodium chloride 0.9% (plus) 50 ML 100 MG IV (09:04)
--- NOTE | 2022-03-08 09:54 | PM.DCS ---
Discharge Providers Date of Admission: 03/06/22 17:36 Date of Discharge: March 08, 2022 Attending Provider at Admission: Jovan Clarke MD Attending Provider at Discharge: Jovan Clarke MD Diagnoses at Discharge Discharge Diagnosis (1) Wheelchair bound: Status: Acute (2) Pneumonia: Status: Acute (3) Cellulitis: Status: Acute Reason for Visit Reason for Visit: SOB Hospital Course Hospital Course 67-year male who was admitted to the hospital for chief complaint of worsening shortness of breath. He was also experiencing purulent cellulitis of his right arm and right leg. COVID PCR was requested which came back after 2 days with negative result. He was requiring 3 to 4 L of oxygen during the daytime and BiPAP at night. He did not use BiPAP 40 hours before his discharge from the hospital. Patient is an active smoker smokes 1 pack/day. Probably undiagnosed underlying COPD. Requested home O2 eval. Requiring 2 to 3 L. His purulent cellulitis of extremities improved. No signs of DVT or PE. He was treated for left-sided community-acquired pneumonia. He remained afebrile, leukocytosis improved. At the time of discharge white count is 9.8. Cultures remain negative. Patient looks much more comfortable and calm on the day of discharge. He is trying to get in touch with his girlfriend to arrange for a ride today. He carries history of DVT and PE however no such findings were detected during this visit I would continue his Eliquis 5 mg twice daily because of his wheelchair-bound status and sedentary lifestyle. At the time of discharge she will get levofloxacin 5-day regimen. Albuterol and trilogy, pulmonary outpatient follow-up. Physical Exam Narrative: Patient looks euvolemic No active respiratory distress Currently on 3 L No audible stridor or wheezing Cellulitis improving of his right arm and right leg Wound is dry no active drainage Erythema has improved S1, S2 Awake and alert Edema of legs slightly improved Urinary Catheter Management: Harrington: Cath Placed During This Visit: no Reason for Continuing Indwelling Catheter: Acute Urinary Retention or Obstruction Discharge Data Studies Completed and Pending Completed Studies During Hospitalization Category Date Time Status CTA chest [CT angio chest PE protcl [id number]] Urgent Cat Scan 03/05/22 16:47 Completed XR chest 1V portable [id number] Stat Exams 03/05/22 12:23 Completed XR hand RT min 3V* [id number] Urgent Exams 03/05/22 14:43 Completed CV. echo complete* [id number] Routine Ultrasound 03/06/22 10:37 Completed US venous duplex lower extremity bilat [CV venous Ultrasound 03/05/22 14:44 [place] [id number]] Urgent Pending at discharge Category Date Time Status Blood Culture Stat Lab 03/05/22 16:50 Results Radiology Impressions Chest X-Ray 03/05/22 12:23 IMPRESSION: Mild left basilar atelectasis and/or infiltrate and/or scarring. Hand X-Ray 03/05/22 14:43 IMPRESSION: Mild to moderate changes of osteoarthritis with no acute abnormality. Chest CTA 03/05/22 16:47 IMPRESSION: 1. 44 mm ascending aortic aneurysm without rupture. 2. Mild right axillary adenopathy which may be reactive. 3. No pulmonary embolus or aortic dissection. 4. Severe fatty infiltration of the liver. Laboratory Results WBC 9.8 10^3/uL (4.0-10.0) 03/08/22 05:04 RBC 3.86 10^6/uL (4.1-5.3) L 03/08/22 05:04 Hgb 11.1 g/dL (11.7-16.6) L 03/08/22 05:04 Hct 33.5 % (42.0-52.0) L 03/08/22 05:04 MCV 86.8 fl (80-94) 03/08/22 05:04 MCH 28.8 pg (28.0-34.0) 03/08/22 05:04 MCHC 33.1 g/dL (30.0-36.0) 03/08/22 05:04 RDW 15.6 % (12.1-15.1) H 03/08/22 05:04 Plt Count 412 10^3/cmm (130-400) H 03/08/22 05:04 MPV 9.9 fL (7.4-10.4) 03/08/22 05:04 Neut % (Auto) 73.8 % 03/08/22 05:04 Lymph % (Auto) 13.8 % 03/08/22 05:04 Door % (Auto) 5.0 % 03/08/22 05:04 Eos % (Auto) 2.9 % 03/08/22 05:04 Baso % (Auto) 0.6 % 03/08/22 05:04 Neut # (Auto) 7.19 10^3/uL (1.8-7.7) 03/08/22 05:04 Lymph # (Auto) 1.4 10^3/uL (0.8-4.8) 03/08/22 05:04 Door # (Auto) 0.5 10^3/uL (0.2-0.9) 03/08/22 05:04 Eos # (Auto) 0.3 10^3/uL (0.0-0.8) 03/08/22 05:04 Baso # (Auto) 0.1 10^3/uL (0.0-0.1) 03/08/22 05:04 Nucleated RBC % (auto) 0 % 03/08/22 05:04 Nucleated RBCs # 0.0 /100WBC 03/08/22 05:04 Specimen Type Arterial 03/05/22 22:03 Sample Site Radial, right 03/05/22 22:03 ABG pH 7.51 (7.35-7.45) H 03/05/22 22:03 ABG pCO2 40.5 mmHg (35-45) 03/05/22 22:03 ABG pO2 49.3 mmHg (80.0-100.0) L 03/05/22 22:03 ABG HCO3 32.4 mmol/L (22-26) H 03/05/22 22:03 ABG Base Excess 8.5 mmol/L (-2.0-2.0) H 03/05/22 22:03 Luisito Test Pos 03/05/22 22:03 Hematocrit 54.0 % (42-52) H 03/05/22 22:03 O2 Delivery Device Nc 03/05/22 22:03 O2 Liters/Min 4.0 % 03/05/22 22:03 Research Animal Attendant ID Kermit 03/05/22 22:03 Sodium 140 mmol/L (136-145) 03/08/22 05:04 Potassium 3.8 mmol/L (3.5-5.1) 03/08/22 05:04 Chloride 103 mmol/L (98-107) 03/08/22 05:04 Carbon Dioxide 31 mmol/L (22-29) H 03/08/22 05:04 Anion Gap 9.8 (5-19) 03/08/22 05:04 BUN 19 mg/dL (8-23) 03/08/22 05:04 Creatinine 0.7 mg/dL (0.7-1.2) 03/08/22 05:04 GFR Calculation 112.1 mL/min (90-130) 03/08/22 05:04 Glucose 131 mg/dL (65-115) H 03/08/22 05:04 POC Glucose 104 mg/dL (70-110) 03/08/22 05:56 Estimat Average Glucose 123 03/05/22 20:14 Hemoglobin A1c 5.9 % (4.0-6.0) 03/05/22 20:14 Calculated Osmolality 294 mOsm/kg (285-295) 03/08/22 05:04 Calcium 8.1 mg/dL (8.5-10.5) L 03/08/22 05:04 Magnesium 2.3 mg/dL (1.7-2.3) 03/07/22 06:18 Total Bilirubin 0.8 mg/dL (0.15-1.2) 03/05/22 14:30 AST 42 U/L (0-40) H 03/05/22 14:30 ALT 44 U/L (0-41) H 03/05/22 14:30 Alkaline Phosphatase 94 IU/L (40-130) 03/05/22 14:30 Troponin T Baseline 36 ng/L (0-15) H 03/05/22 14:30 Troponin T 120 Minute 33.18 ng/L (0-15) H 03/05/22 16:50 Delta Troponin T -2.82 ABS# (0-10) L 03/05/22 16:50 Troponin T Hi Sens 6Hr 39.79 ng/L (0-15) H 03/05/22 20:14 Troponin T Hi Sens 6Hr Delta 3.79 ng/L (0-12) 03/05/22 20:14 C-Reactive Protein 154.4 mg/L (0.0-4.9) H 03/07/22 06:18 NT-Pro-B Natriuret Pep 684 pg/mL (0-125) H 03/05/22 20:14 Total Protein 7.1 g/dL (6.6-8.7) 03/05/22 14:30 Albumin 2.9 g/dL (3.5-5.2) L 03/05/22 14:30 Globulin 4.2 g/dL (1.3-4.6) 03/05/22 14:30 Procalcitonin 0.48 ng/mL (0-0.5) 03/05/22 20:14 Urine Color Yellow (Yellow) 03/06/22 01:10 Urine Appearance Clear (CLEAR) 03/06/22 01:10 Urine pH 5 (5-7) 03/06/22 01:10 Ur Specific [place] 1.010 (1.005-1.030) 03/06/22 01:10 Urine Protein 1+ (Negative) H 03/06/22 01:10 Urine Glucose (UA) Norm (Normal) 03/06/22 01:10 Urine Ketones 1+ (Negative) H 03/06/22 01:10 Urine Blood 3+ (Negative) H 03/06/22 01:10 Urine Nitrate Negative (Negative) 03/06/22 01:10 Urine Bilirubin Neg (Negative) 03/06/22 01:10 Urine Urobilinogen 1 mg/dL (Negative) H 03/06/22 01:10 Ur Leukocyte Esterase Negative (Negative) 03/06/22 01:10 Urine RBC Too numerous to cnt /hpf (0-2) H 03/06/22 01:10 Urine WBC 0-4 /hpf (0-5) H 03/06/22 01:10 Ur Squamous Epith Cells 0-4 /hpf (0-5) H 03/06/22 01:10 Amorphous Sediment Not Reportable 03/06/22 01:10 Urine Bacteria 2+ /hpf (NONE) H 03/06/22 01:10 Vancomycin Trough 17.3 ug/mL (10-15) H 03/07/22 08:01 SARS-CoV-2 RNA (RT-PCR) Not detected (NOT DETECTED) 03/06/22 01:39 Vitals Last Vital Signs Temp 97.9 F 03/08/22 08:00 Pulse 61 03/08/22 08:34 Resp 16 03/08/22 08:34 BP 126/77 03/08/22 08:00 Pulse Ox 93 03/08/22 08:34 Discharge Plan Discharge Patient Disposition: Home Condition: Stable Prescriptions: New albuterol sulfate 90 mcg/actuation HFA aerosol inhaler 2 inh inhalation Q8H PRN (Reason: shortness of breath or wheezing) Qty: 8.5 3RF bacitracin 500 unit/gram ointment 1 applic topical DAILY Qty: 28 1RF Trelegy Ellipta 100-62.5-25 mcg blister with device 1 inh inhalation DAILY Qty: 60 3RF levofloxacin 750 mg tablet 750 mg PO DAILY 5 Days Qty: 5 0RF furosemide [Lasix] 20 mg tablet 20 mg PO DAILY MDD 40mg PRN (Reason: edema) Qty: 60 3RF Continued gabapentin 600 mg Tablet 600 mg PO QID 0RF tizanidine 4 mg Tablet 4 mg PO BID PRN (Reason: Muscle Spasm) 0RF pantoprazole 40 mg Tablet,Delayed Release (Dr/Ec) 40 mg PO DAILY 0RF levothyroxine 112 mcg Tablet 112 mcg PO DAILY 0RF duloxetine 30 mg Capsule,Delayed Release(Dr/Ec) 30 mg PO DAILY 0RF Eliquis 5 mg Tablet 5 mg PO BID 0RF Discontinued hydrochlorothiazide 25 mg Tablet 25 mg PO DAILY 0RF Discharge Orders: Discharge Order (Routine); Ordered 03/08/22 Ordered By: Jovan Clarke Referrals: Datar,Dixon Harvey MD [Physician] - 2 weeks Discharge Diet: Cardiac Discharge Activity: Wheelchair as instructed Patient Instructions: Opioid Safety Discharge Attestations Time Spent in Discharge Care*: less than 30 min Quality Metrics Clinical Quality Measures [ No reported AMI, CVA or VTE this stay] Coding Level of Care Code Acute Chg FW DC note Diagnoses Wheelchair bound Z99.3 Pneumonia J18.9 Cellulitis L03.90
[2022-03-08 11:09] LABS: Glucose Point of Care 140 mg/dL (70-110)
== END 2022-03-08 12:45 | disposition home or self-care (01) | DRG 194 ==
LOC: ER 17:31 → MEDSURG 18:20
PROVIDERS: Family Medicine; Admitting Provider Internal Medicine; Emergency Provider Emergency Medicine; Visit Provider Internal Medicine
DX: J18.9 Pneumonia, unspecified organism (principal); L03.113 Cellulitis of right upper limb; L03.115 Cellulitis of right lower limb; E03.9 Hypothyroidism, unspecified; I48.0 Paroxysmal atrial fibrillation; R60.0 Localized edema; E87.6 Hypokalemia; R31.9 Hematuria, unspecified; Z20.822 Contact with and (suspected) exposure to COVID-19; Z86.718 Personal history of other venous thrombosis and embolism; Z79.01 Long term (current) use of anticoagulants; Z86.711 Personal history of pulmonary embolism; Z99.3 Dependence on wheelchair; Z22.322 Carrier or suspected carrier of Methicillin resistant Staphylococcus aureus
CPT/HCPCS: 36415; 36416; 51702; 71045; 71275; 73130; 80048; 80053; 80202; 81001; 82803; 82962; 83036; 83735; 83880; 84145; 84484; 85025; 86140; 87040; 87086; 87635; 87641; 93005; 93306; 93970; 94640; 94660; 94664; 94760; 94762; 96365; 96367; 99291; G0378; J0456; J0696; J1940; J3370; J3490; J7050; J7626; Q9967

== ENCOUNTER 2022-07-25 02:47 | Inpatient (IN) | payer MEDICARE, MEDICAID, SELFPAY ==
[2022-07-25] VITALS (8 sets, daily range): BP systolic 108–129; BP diastolic 64–80; PULSE 61–105; RESP 16–20; TEMP 36.7–37.3; O2SAT 90–96; BMI 29.0; BMI 26.0
--- NOTE | 2022-07-25 03:15 | CTR_ITS ---
PROCEDURE INFORMATION: Exam: CT Head Without Contrast Exam date and time: 07/25/2022 3:49 AM Age: 67 years old Clinical indication: Injury or trauma; Fall; Blunt trauma (contusions or hematomas); Patient HX: Patient fell out of bed at home this a. M. Hematoma to forehead. C/O head, neck, and back pain. TECHNIQUE: Imaging protocol: Computed tomography of the head without contrast. Radiation optimization: All CT scans at this facility use at least one of these dose optimization techniques: automated exposure control; mA and/or kV adjustment per patient size (includes targeted exams where dose is matched to clinical indication); or iterative reconstruction. COMPARISON: No relevant prior studies available. RADIATION DOSE METRICS: Total DLP (mGy-cm): 1180.38 FINDINGS: Brain: No focal hemorrhage or midline shift is identified. The ventricles and parenchyma show mild atrophy and chronic cerebral white matter ischemic change. Cerebral ventricles: No ventriculomegaly or evidence of acute hydrocephalus. Paranasal sinuses: Minimal left maxillary sinus mucosal thickening. Mastoid air cells: Visualized mastoid air cells are well aerated. Bones/joints: No displaced skull fracture is noted. Soft tissues: Small left forehead hematoma. CT/CT head wo con* [id number] IMPRESSION: 1. No focal hemorrhage or midline shift. 2. Mild age-related changes. 3. Small left forehead hematoma.
--- NOTE | 2022-07-25 03:15 | CTR_ITS ---
PROCEDURE INFORMATION: Exam: CT Lumbar Spine Without Contrast Exam date and time: 07/25/2022 3:55 AM Age: 67 years old Clinical indication: Injury or trauma; Fall; Blunt trauma (contusions or hematomas); Patient HX: Patient fell out of bed at home this a. M. Hematoma to forehead. C/O head, neck, and back pain. TECHNIQUE: Imaging protocol: Computed tomography of the lumbar spine without contrast. Radiation optimization: All CT scans at this facility use at least one of these dose optimization techniques: automated exposure control; mA and/or kV adjustment per patient size (includes targeted exams where dose is matched to clinical indication); or iterative reconstruction. COMPARISON: No relevant prior studies available. RADIATION DOSE METRICS: Total DLP (mGy-cm): 821.47 FINDINGS: Bones/joints: No acute fracture. Normal alignment. Severe L5-S1 DDD. Moderate to severe L4-S1 facet arthropathy. Moderate diffuse lumbar congenital spinal stenosis. Old right L1 transverse process deformity with cortication. Moderate bilateral SI DJD. Large L5-S1 disc osteophyte complex causing at least moderate spinal stenosis. Vasculature: Extensive diffuse vascular calcification. Soft tissues: Unremarkable. CT/CT lumbar spine wo con* [id number] IMPRESSION: 1. No acute findings. 2. Multiple chronic findings are discussed above. Advanced spondylosis and degenerative change.
--- NOTE | 2022-07-25 03:15 | CTR_ITS ---
PROCEDURE INFORMATION: Exam: CT Cervical Spine Without Contrast Exam date and time: 07/25/2022 3:51 AM Age: 67 years old Clinical indication: Injury or trauma; Fall; Blunt trauma; Prior surgery; Surgery type: Cervical fusion; Patient HX: Patient fell out of bed at home this a. M. Hematoma to forehead. C/O head, neck, and back pain. TECHNIQUE: Imaging protocol: Computed tomography of the cervical spine without contrast. Radiation optimization: All CT scans at this facility use at least one of these dose optimization techniques: automated exposure control; mA and/or kV adjustment per patient size (includes targeted exams where dose is matched to clinical indication); or iterative reconstruction. COMPARISON: CT head wo con* [id number] 07/25/2022 3:49 AM RADIATION DOSE METRICS: Total DLP (mGy-cm): 153.67 FINDINGS: Bones/joints: No fracture or subluxation identified. There is posterior fusion C2/3 through T2. No jumped, locked or perched facets are visualized. Numerous extensive cervical laminectomies as well. Moderate diffuse cervical facet arthropathy. Lungs: Lung apices are normal. Vasculature: Diffuse vascular calcifications are visualized. 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 Soft tissues: Unremarkable. CT/CT cervical spin wo con* [id number] IMPRESSION: 1. No acute fracture or acute subluxation noted. 2. Extensive previous cervical postop change with advanced rather severe DJD.
--- NOTE | 2022-07-25 03:19 | W.ED.FALL ---
HPI - Fall General: Chief Complaint: Fall Stated Complaint: FALL Time Seen by Provider: 07/25/22 03:12 Source: patient and EMS Mode of arrival: EMS Limitations: no limitations History of Present Illness: 67-year-old male is here from home he states that he fell out of bed this morning roughly foot fall he hit his head he does have a hematoma to his left head. He states he is on blood thinners he is got a mild headache and neck pain along with low back pain. States he has had worsening cellulitis to his bilateral legs with weeping sores she has been on oral antibiotics but states they have worsened over the last week denies any fever he does have pain in his lower legs. Associated symptoms-after fall: Reports headache(s) and neck pain; Denies abdominal pain or chest pain Review of Systems Const: Denies: fever(s), chills, body aches or change in appetite Eyes: Denies: blurry vision or eye discomfort ENMT: Denies: throat pain or dental pain Card: Denies: chest pain Resp: Denies: dyspnea GI: Denies: abdominal pain, nausea, vomiting or diarrhea : Denies: dysuria Musc: Reports: neck pain and back pain Skin/Breast: Reports: erythema Neuro: Reports: headache(s) Psych: Denies: depression Dante/Lymph: Denies: easy bruising All/Imm: Denies: urticaria PFSH ED PFSH: Medical History Atrial fibrillation Cellulitis DVT (deep venous thrombosis) Hypothyroidism Pneumonia Pulmonary embolism Wheelchair bound Surgical History H/O cervical spine surgery History of tonsillectomy Social History Smoking and tobacco status: never smoked Alcohol intake: never Physical Exam Const: COMMON NORMALS: patient oriented x3 GENERAL APPEARANCE: ill appearing HENMT: COMMON NORMALS: normocephalic HEAD & SCALP: normocephalic OTHER: Hematoma to left forehead Eye: COMMON NORMALS: Equal, round and reactive pupils present and EOMs intact bilaterally PUPIL: Yes Equal, round and reactive pupils present Neck/C-Spine: COMMON NORMALS: full ROM and supple Chest: COMMONS NORMALS: normal inspection of the chest and normal palpation of entire chest wall Resp: COMMON NORMALS: normal respiratory effort, No retractions, No use of accessory muscles and clear to auscultation bilaterally AUSCULTATION: clear to auscultation bilaterally Cardio: COMMON NORMALS: regular rate, regular rhythm and No murmurs present (Cardio) RATE: regular rate RHYTHM: regular rhythm GI: COMMON NORMALS: Normal to inspection, nondistended, normoactive bowel sounds present, Soft to palpation, non-tender and no masses PALPATION: Yes Soft to palpation Extremity: COMMON NORMALS: full ROM NARRATIVE EXTREMITY EXAM: Erythematous cellulitis with weeping sores to both legs Neuro: COMMON NORMALS: patient oriented x3, moves all extremities and no focal motor deficits Psych: COMMON NORMALS: mental status grossly normal, Normal thought process present and cooperative THOUGHT PROCESS: Normal thought process present Skin: COMMON NORMALS: no rashes or lesions noted and no wounds GENERAL SKIN EXAM: no rashes or lesions noted Course Vital Signs: Vital signs: Vital Signs Pulse Rate 88 07/25/22 03:45 Respiratory Rate 16 07/25/22 03:45 Blood Pressure 108/64 07/25/22 03:45 Pulse Oximetry 96 07/25/22 03:45 Oxygen Delivery Me thod 07/25/22 03:18 MDM - Fall Medical Decision Making Patient presents here with cellulitis to bilateral extremities his white count is normal cellulitis is significant will admit for IV antibiotics. Lab Data 07/25/22 03:29 12 03:29 Radiology Impressions Cervical Spine CT 07/25/22 03:15 IMPRESSION: 1. No acute fracture or acute subluxation noted. 2. Extensive previous cervical postop change with advanced rather severe DJD. Head CT 07/25/22 03:15 IMPRESSION: 1. No focal hemorrhage or midline shift. 2. Mild age-related changes. 3. Small left forehead hematoma. Lumbar Spine CT 07/25/22 03:15 IMPRESSION: 1. No acute findings. 2. Multiple chronic findings are discussed above. Advanced spondylosis and degenerative change. Laboratory Results WBC 9.3 10^3/uL (4.0-10.0) 07/25/22 03:29 RBC 4.43 10^6/uL (4.1-5.3) 07/25/22 03:29 Hgb 13.0 g/dL (11.7-16.6) 07/25/22 03:29 Hct 40.5 % (42.0-52.0) L 07/25/22 03:29 MCV 91.4 fl (80-94) 07/25/22 03:29 MCH 29.3 pg (28.0-34.0) 07/25/22 03: MCHC 32.1 g/dL (30.0-36.0) 07/25/22 03: RDW 14.1 % (12.1-15.1) 07/25/22 03:29 Plt Count 357 10^3/cmm (130-400) 07/25/22 03:29 MPV 9.4 fL (7.4-10.4) 07/25/22 03: Neut % (Auto) 76.5 % 07/25/22 03: Lymph % (Auto) 10.1 % 07/25/22 03:29 [place] % (Auto) 9.0 % 07/25/22 03:29 Eos % (Auto) 3.0 % 07/25/22 03:29 Baso % (Auto) 0.6 % 07/25/22 03:29 Neut # (Auto) 7.10 10^3/uL (1.8-7.7) 07/25/22 03: Lymph # (Auto) 0.9 10^3/uL (0.8-4.8) 07/25/22 03:29 [place] # (Auto) 0.8 10^3/uL (0.2-0.9) 07/25/22 03:29 Eos # (Auto) 0.3 10^3/uL (0.0-0.8) 07/25/22 03:29 Baso # (Auto) 0.1 10^3/uL (0.0-0.1) 07/25/22 03:29 Nucleated RBC % (auto) 0 % 07/25/22 03: Nucleated RBCs # 0.0 /100WBC 07/25/22 03:29 PT 14.60 SECONDS (12.1-14.9) 07/25/22 03: INR 1.11 (0.8-1.2) 07/25/22 03:29 Sodium 134 mmol/L (136-145) L 07/25/22 03:29 Potassium 3.3 mmol/L (3.5-5.1) L 07/25/22 03:29 Chloride 96 mmol/L (98-107) L 07/25/22 03:29 Carbon Dioxide 32 mmol/L (22-29) H 07/25/22 03:29 Anion Gap 9.3 (5-19) 07/25/22 03:29 BUN 23 mg/dL (8-23) 07/25/22 03:29 Creatinine 1.1 mg/dL (0.7-1.2) 07/25/22 03:29 GFR Calculation 66.6 mL/min (90-130) L 07/25/22 03:29 Glucose 112 mg/dL (65-115) 07/25/22 03:29 Calculated Osmolality 282 mOsm/kg (285-295) L 07/25/22 03:29 Calcium 9.0 mg/dL (8.5-10.5) 07/25/22 03:29 Total Bilirubin 0.3 mg/dL (0.15-1.2) 07/25/22 03:29 AST 11 U/L (0-40) 07/25/22 03:29 ALT 10 U/L (0-41) 07/25/22 03:29 Alkaline Phosphatase 79 U/L (40-130) 07/25/22 03:29 NT-Pro-B Natriuret Pep 60 pg/mL (0-125) 07/25/22 03:29 Total Protein 6.9 g/dL (6.6-8.7) 07/25/22 03:29 Albumin 3.1 g/dL (3.5-5.2) L 07/25/22 03:29 Globulin 3.8 g/dL (1.3-4.6) 07/25/22 03:29 Discharge Plan Discharge Patient Disposition: Admitted As Inpatient Clinical Impression: Cellulitis, Closed head injury Condition: Stable Prescriptions: No Action gabapentin 600 mg Tablet 600 mg PO QID tizanidine 4 mg Tablet 4 mg PO BID PRN (Reason: Muscle Spasm) pantoprazole 40 mg Tablet,Delayed Release (Dr/Ec) 40 mg PO DAILY levothyroxine 112 mcg Tablet 112 mcg PO DAILY duloxetine 30 mg Capsule,Delayed Release(Dr/Ec) 30 mg PO DAILY Eliquis 5 mg Tablet 5 mg PO BID albuterol sulfate 90 mcg/actuation HFA aerosol inhaler 2 inh inhalation Q8H PRN (Reason: shortness of breath or wheezing) Qty: 8.5 3RF Trelegy Ellipta 100-62.5-25 mcg blister with device 1 inh inhalation DAILY Qty: 60 3RF Lasix 20 mg tablet 20 mg PO DAILY MDD 40mg PRN (Reason: edema) Qty: 60 3RF bacitracin 500 unit/gram ointment 1 applic topical DAILY Qty: 28 1RF Coding Level of Care Code ED Induction Machine 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
[2022-07-25 03:44] LABS: Basophils # 0.1 10^3/uL (0.0-0.1); Basophils % 0.6 %; Eosinophils # 0.3 10^3/uL (0.0-0.8); Hematocrit 40.5 % (42.0-52.0); Lymphocytes # 0.9 10^3/uL (0.8-4.8); Lymphocytes % 10.1 %; Mean Corpuscular HGB Conc 32.1 g/dL (30.0-36.0); Mean Corpuscular Hemoglobin 29.3 pg (28.0-34.0); Mean Corpuscular Volume 91.4 fl (80-94); Mean Platelet Volume 9.4 fL (7.4-10.4); Monocytes # 0.8 10^3/uL (0.2-0.9); Neutrophils % 76.5 %; Nucleated Red Blood Cells % 0 %; Platelet Count 357 10^3/cmm (130-400); Red Blood Count 4.43 10^6/uL (4.1-5.3); Red Cell Distribution Width 14.1 % (12.1-15.1); White Blood Count 9.3 10^3/uL (4.0-10.0)
[2022-07-25] MEDS: vancomycin 1,000 MG in sodium chloride 0.9% 250 ML 250 MG IV (03:44)
[2022-07-25 03:56] LABS: INR 1.11 (0.8-1.2)
[2022-07-25 04:11] LABS: Alanine Aminotransferase 10 U/L (0-41); Albumin Level 3.1 g/dL (3.5-5.2); Alkaline Phosphatase 79 U/L (40-130); Anion Gap 9.3 (5-19); Aspartate Amino Transferase 11 U/L (0-40); Blood Urea Nitrogen 23 mg/dL (8-23); Carbon Dioxide 32 mmol/L (22-29); Chloride 96 mmol/L (98-107); Globulin 3.8 g/dL (1.3-4.6); Glomerular Filtration Rate 66.6 mL/min (90-130); Glucose 112 mg/dL (65-115); NT Pro B Type Natriuretic Pept 60 pg/mL (0-125); Osmolality Calculated 282 mOsm/kg (285-295); Potassium 3.3 mmol/L (3.5-5.1); Sodium 134 mmol/L (136-145); Total Bilirubin 0.3 mg/dL (0.15-1.2); Total Protein 6.9 g/dL (6.6-8.7)
--- NOTE | 2022-07-25 04:35 | PM.HP ---
Providers/Chief Complaint Chief Complaint: FALL History of Present Illness Tayo Newberry is a 67 year old male with past medical history of atrial fibrillation, cellulitis, DVT, hypothyroidism, pneumonia, pulmonary embolism, patient is wheelchair-bound, presented to the hospital after he states he fell out of bed and hit his head. He was concerned because he is on a blood thinner. He had mild headache and neck pain along with low back pain. Patient also has a history of lumbar spinal stenosis for which he is supposed to have back surgery in [place] however is waiting for a date. He had cervical spine surgery with lynnette fixation last year in [place] as well. He was sent to a retirement thereafter. Patient states due to back pain he cannot find a comfortable position in bed and therefore is a wheelchair. But also at baseline he cannot walk and uses a walker to walk a few steps to transfer from wheelchair to bed. Patient also states that he has worsening bilateral lower extremity cellulitis with weeping sores have been going on for the last 6 to 8 weeks. He was placed on oral antibiotics outpatient by his doctor in [place] however he states none of it has helped so far. He was admitted this year over the summer for the same issue. At previous visit in February he had purulent cellulitis and was placed on antibiotics. He also had left lobe community-acquired pneumonia. Patient is chronically on Eliquis for history of DVT and PE. Patient was given pulmonary follow-up at discharge. Echo done in February 2022 shows EF 69%, mild left ventricular hypertrophy, mild mitral valve regurgitation. ED course: BP 108/64 heart respiratory 16, pulse 88. White count normal. Cervical spine CT showed no acute fracture or acute subluxation noted, head CT negative for hemorrhage or midline shift. It does show a small left forehead hematoma. Lumbar CT shows multiple chronic findings but nothing acute. Hospitalist requested to admit patient for cellulitis to bilateral lower extremities. Sodium 134, potassium 3.3, chloride 96 Medications/Allergies Home Medications Medication Instructions Recorded Confirmed Last Taken Type apixaban 5 mg tablet (Eliquis) 5 mg PO BID 03/05/22 07/25/22 07/24/22 History duloxetine 30 mg capsule,delayed 30 mg PO DAILY 03/05/22 07/25/22 03/05/22 History release gabapentin 600 mg tablet 600 mg PO QID 03/05/22 07/25/22 03/05/22 History levothyroxine 112 mcg tablet 112 mcg PO DAILY 03/05/22 07/25/22 03/05/22 History tizanidine 4 mg tablet 4 mg PO BID PRN Muscle Spasm 03/05/22 07/25/22 Unknown History albuterol sulfate 90 mcg/actuation 2 inh inhalation Q8H PRN shortness 03/08/22 07/25/22 Unknown Rx aerosol inhaler of breath or wheezing #8.5 grams fluticasone fur. 100 mcg-umeclid 1 inh inhalation DAILY #60 ea 03/08/22 07/25/22 Unknown Rx 62.5 mcg-vilant 25 mcg inhalat.powder (Trelegy Ellipta) furosemide 20 mg tablet (Lasix) 20 mg PO DAILY PRN edema #60 tabs 03/08/22 07/25/22 07/24/22 Rx hydrocodone 10 mg-acetaminophen 1 tab PO 6XD PRN Pain 07/25/22 07/25/22 Unknown History 325 mg tablet Allergies Allergy/AdvReac Type Severity Reaction Status Date / Time Penicillins Allergy Unknown Verified 03/05/22 14:11 PFSH Acute PFSH: Medical History (Updated 07/25/22 @ 05:51 by Cassandra Schulz MD) Atrial fibrillation Cellulitis DVT (deep venous thrombosis) Hypothyroidism Pneumonia Pulmonary embolism Wheelchair bound Surgical History H/O cervical spine surgery History of tonsillectomy Social History Smoking and tobacco status: never smoked Alcohol intake: never Vitals/I&O/Wt Last Vital Signs Pulse 88 07/25/22 03:45 Resp 16 07/25/22 03:45 BP 108/64 07/25/22 03:45 Pulse Ox 96 07/25/22 03:45 O2 Del Method 07/25/22 03:18 Weight last 48 hrs Weight 99.79 kg Physical Exam Narrative: General: Alert oriented x3, patient seen laying in bed HEENT: Normocephalic, atraumatic, EOMI, breathing normally, small hematoma left side of head Cardio: Regular rate rhythm, normal S1-S2, no gross apparent murmurs at this time Respiratory: Clear to auscultation bilaterally no wheezes or rhonchi GI: Abdomen soft, nontender, nondistended, bowel sounds + Behavior: Appropriate and cooperative Extremities: Mild redness and several wounds with craters and pus all the way up to knees weeping and draining yellowish material. Skin is sloughing off, some bleeding noted as well. Data 07/25/22 03:29 07/25/22 03:29 Micro: Microbiology 07/25/22 03:37 Blood Culture - Preliminary Blood SPECIMEN COLLECTED 07/25/22 03:29 Blood Culture - Preliminary Blood SPECIMEN COLLECTED A&P Assessment and plan (1) Cellulitis: Qualifiers: Laterality: left Site of cellulitis: extremity Site of cellulitis of extremity: lower extremity Qualified Code(s): L03.116 - Cellulitis of left lower limb (2) Closed head injury: (3) Atrial fibrillation: (4) Hypothyroidism: (5) Wheelchair bound: Plan #Fall #Cellulitis bilateral lower extremities #Lumbar spinal stenosis #Hypothyroidism #History of DVT and PE #Chronic anticoagulation - Continue broad-spectrum antibiotics at this time. Vancomycin and aztreonam. Patient allergic to penicillins. ? Check blood cultures ? Continue levothyroxine, duloxetine, Eliquis ? DuoNeb every 4 hours as needed ? Continue tizanidine ? Continue gabapentin ? Check hemoglobin A1c, lipid profile ? History of positive MRSA nares. ? Wound care - Tylenol if fever develops - Check CT b/l LE to see extent of infection - Has back pain and due for spine surgery however waiting for appointment. Would like to pursue it here if possible. Request records from [facility] and then consult orthopedics here. Pt sometimes loses control of his bladder with particular position changes. Describes stabbing back pain. 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
--- NOTE | 2022-07-25 04:54 | PC.NURSE ---
Report given to Rodrigo Wheeler
--- NOTE | 2022-07-25 05:51 | XRR_ITS ---
PROCEDURE INFORMATION: Exam: XR Chest Exam date and time: 07/25/2022 8:14 AM Age: 67 years old Clinical indication: Shortness of breath; Additional info: Hypoxia TECHNIQUE: Imaging protocol: Radiologic exam of the chest. Views: 1 view. COMPARISON: CR XR chest 1V portable [id number] 03/05/2022 2:11 PM FINDINGS: Lungs: Normal lung volumes. No confluent interstitial or airspace opacities. Age-related interstitial prominence is seen in the lungs. Pleural spaces: No pleural effusion. No pneumothorax. Heart/Mediastinum: Normal heart size. There is a mildly tortuous thoracic aorta. Midline trachea. Bones/joints: No acute abnormalities. Postsurgical changes of the visualized lower cervical spine are seen. XR/XR chest 1V portable [id number] IMPRESSION: No confluent infiltrates in the lungs.
[2022-07-25] MEDS: morphine 4 mg/mL SDV 1 mL 2 MG IVP (05:52)
[2022-07-25 06:22] LABS: Lactic Sepsis W/Reflex 1.2 mmol/L (0.5-2.2)
[2022-07-25] MEDS: aztreonam 1,000 MG in sodium chloride 0.9% (plus) 50 ML 100 MG IV ×2 (06:33→18:44)
[2022-07-25] MEDS: HYDROcodone-acetaminophen 10-325 mg Tablet 1 TAB PO ×4 (06:38→23:05)
[2022-07-25] MEDS: tizanidine 4 mg Tablet PO (06:39)
[2022-07-25 06:43] LABS: Estmated Average Glucose 120; Hemoglobin A1C 5.8 % (4.0-6.0)
[2022-07-25 06:45] LABS: Procalcitonin 0.02 ng/mL (0-0.5)
--- NOTE | 2022-07-25 07:42 | CTR_ITS ---
PROCEDURE INFORMATION: Exam: CT Left Lower Extremity Without Contrast; Lower Leg Exam date and time: 07/25/2022 8:07 AM Age: 67 years old Clinical indication: Cellulitis; Lower leg; Left; Additional info: Cellulitis, weeping wounds TECHNIQUE: Imaging protocol: CT of the Left lower extremity without contrast was performed. Exam focused on the lower leg. Radiation optimization: All CT scans at this facility use at least one of these dose optimization techniques: automated exposure control; mA and/or kV adjustment per patient size (includes targeted exams where dose is matched to clinical indication); or iterative reconstruction. COMPARISON: No relevant prior studies available. RADIATION DOSE METRICS: Total DLP (mGy-cm): 659.56 FINDINGS: Bones/joints: There is normal alignment of the visualized distal femur, tibia and fibula without fractures or dislocations. Minimal lateral patellar tilt is seen. 3 compartment small degenerative osteophytes are seen in the knee. Tiny degenerative osteophytes of the ankle are seen. Mild medial tibiofemoral compartment and mild tibiotalar compartment joint space narrowing is seen, suggestive of osteoarthritic change. There are no osseous erosive changes. Medium-sized plantar calcaneal spur is seen. Soft tissues: There is moderate diffuse lower leg region soft tissue swelling is seen, most prominent in the ankle and foot region. These findings may represent cellulitis. No loculated fluid collections or abscess. There is no ankle joint effusion. There is no knee joint effusion. There is no soft tissue gas. Other findings: If there is further clinical concern, MRI may be performed for complete assessment. CT/CT lower leg LT wo con* [id number] IMPRESSION: 1. Moderate lower leg region soft tissue swelling, most prominent in the ankle and foot region. These findings may represent cellulitis. No loculated fluid collections or abscess. No osseous erosive changes or soft tissue gas. 2. Mild degenerative changes of the knee and ankle regions, as noted above.
--- NOTE | 2022-07-25 07:42 | CTR_ITS ---
PROCEDURE INFORMATION: Exam: CT Right Lower Extremity Without Contrast; Lower Leg Exam date and time: 07/25/2022 8:01 AM Age: 67 years old Clinical indication: Cellulitis; Lower leg; Right; Additional info: Cellulitis, weeping wounds TECHNIQUE: Imaging protocol: CT of the Right lower extremity without contrast was performed. Exam focused on the lower leg. Radiation optimization: All CT scans at this facility use at least one of these dose optimization techniques: automated exposure control; mA and/or kV adjustment per patient size (includes targeted exams where dose is matched to clinical indication); or iterative reconstruction. COMPARISON: No relevant prior studies available. RADIATION DOSE METRICS: Total DLP (mGy-cm): 679.76 FINDINGS: Bones/joints: There is normal alignment of the visualized distal femur, tibia and fibula without fractures or dislocations. Minimal lateral patellar tilt is seen. 3 compartment small degenerative osteophytes are seen in the knee. Tiny degenerative osteophytes of the ankle are seen. Mild medial tibiofemoral compartment and mild tibiotalar compartment joint space narrowing is seen, suggestive of osteoarthritic change. There are no osseous erosive changes. Small to medium-sized plantar calcaneal spur is seen. Soft tissues: There is [id number] diffuse lower leg region soft tissue swelling is seen, most prominent in the ankle and foot region. Moderate dorsal foot region edema. These findings may represent cellulitis. No loculated fluid collections or abscess. There is no ankle joint effusion. There is no knee joint effusion. There is no soft tissue gas. Other findings: If there is further clinical concern, MRI may be performed for complete assessment. CT/CT lower leg RT wo con* [id number] IMPRESSION: 1. [id number] diffuse lower leg region soft tissue swelling, most prominent in the ankle and foot region. Moderate dorsal foot region edema. These findings may represent cellulitis. No loculated fluid collections or abscess. No osseous erosive changes or soft tissue gas. 2. Mild degenerative changes of the knee and ankle regions, as noted above.
[2022-07-25] MEDS: levothyroxine 112 mcg Tablet PO (09:29)
[2022-07-25] MEDS: apixaban 5 mg Tablet PO ×2 (09:29→18:43)
[2022-07-25] MEDS: duloxetine 30 mg Capsule PO (09:29)
--- NOTE | 2022-07-25 11:56 | USR_ITS ---
PROCEDURE INFORMATION: Exam: US Bilateral Noninvasive Physiologic Study of the Lower Extremity Arteries, Limited Exam date and time: 07/25/2022 7:55 PM Age: 67 years old Clinical indication: Edema, localized; Lower extremity, bilateral; Patient HX: Patient has bilateral weeping calves that are hot to the touch; Additional info: Assess perfusion TECHNIQUE: Imaging protocol: Bilateral Limited bilateral noninvasive physiologic studies of lower extremity arteries. Waveforms were obtained and evaluated. Images were documented and archived. Exam is limited. COMPARISON: [place] [id number] 07/25/2022 7:33 PM FINDINGS: Right Ankle-Brachial Index: 0.78 Left Ankle-Brachial Index: 0.87 US/CV ankle brachial index [id number] IMPRESSION: Ankle brachial indices as above.
--- NOTE | 2022-07-25 11:56 | USR_ITS ---
PROCEDURE INFORMATION: Exam: US Duplex Lower Extremity Veins, Bilateral Exam date and time: 07/25/2022 7:33 PM Age: 67 years old Clinical indication: Edema, localized; Lower extremity, bilateral; Patient HX: Patient has bilateral weeping calves that are red and hot to the touch. ; Additional info: Assess for dvt TECHNIQUE: Imaging protocol: Real-time Duplex ultrasound of the bilateral extremities with 2-D hoffman scale, color Doppler flow and spectral waveform analysis with image documentation. Complete exam focused on the bilateral lower extremity veins. COMPARISON: CT lower leg LT wo con* [id number] 07/25/2022 8:07 AM FINDINGS: Right deep veins: Unremarkable. The common femoral, femoral, proximal profunda femoral and popliteal veins are patent without thrombus. Normal Doppler waveforms. Normal compressibility and/or augmentation response. Right superficial veins: Saphenofemoral junction is patent without thrombus. Left deep veins: Unremarkable. The common femoral, femoral, proximal profunda femoral and popliteal veins are patent without thrombus. Normal Doppler waveforms. Normal compressibility and/or augmentation response. Left superficial veins: Saphenofemoral junction is patent without thrombus. Soft tissues: Unremarkable. US/[place] [id number] IMPRESSION: No evidence of deep vein thrombosis.
--- NOTE | 2022-07-25 12:18 | PM.PN ---
Subjective Subjective: On entering the room he is working on his cell phone. During introductions puts his phone down, tells me he is hard of hearing, asking him which ear, he states prefers to the left. Speaking near his left ear, when asking how he is doing, he is doing terribly due to back pain, feeling like there is a fist pushing into his back on the left side in the lower back, he starts pushing his right leg down extending his knee screaming out in pain, grabbing onto the handrail, starts pulling himself and screaming out. He tells me at home and aide stays with him who helps care for his lower extremity wounds, states that his primary doctor has provided him with a round of antibiotics and that is it , stating he has no lilo in his primary doctor. He tells me that he was seeing a doctor in [place] for his back, Dr. Esteban, and that surgery was planned, but that he did not fiber picker the phone for preop appointment stating he does not fiber picker the phone for unknown numbers. Asking him if he had called back to clinic to reschedule when he did not hear from his doctor, states he did not. He asks if the surgery could be done here instead. Discussed with him that currently he has been infection of bilateral lower extremities and this would need to be treated first, then continue reassessment and arrangements with his providers once infection resolves. He then is stating that he is really hurting and he is unable to find a comfortable position. Tells me that morphine did nothing for him this morning. He starts raising his voice when discussing multimodal approach to pain control, when he hears Tylenol yells out asking for something stronger, why do people treat this like a headache . Discussed with him Tylenol is a pain medication that works not just for headache. Discussed combination of multiple modalities including cold pack, capsaicin, lidocaine patch, Tylenol, muscle relaxer, as well as his hydrocodone which has been ordered as well which he takes at home. Escalating from there depending on response. Discussed with him we likely will not be able to get rid of his pain, with goal to make it more bearable. Discussed with him additionally continuing antibiotics for bilateral lower extremity cellulitis. Discussed that severe edema is contributing to the cellulitis, discussed obtaining duplex ultrasound venous to exclude DVT as well as arterial to assess perfusion. Subsequently if perfusion allows compression therapy with compression wraps to reduce edema and follow-up with wound care clinic. Vitals/I&O/Wt Last Vital Signs Temp 99.2 F 07/25/22 08:00 Pulse 90 07/25/22 08:00 Resp 18 07/25/22 08:00 BP 125/80 07/25/22 08:00 Pulse Ox 94 07/25/22 08:00 O2 Del Method 07/25/22 11:42 07/24/22 07/25/22 07/25/22 22:59 06:59 14:59 Intake Total 250 / 250 480 / 480 Output Total 200 / 200 Balance 250 / 250 280 / 280 Weight last 48 hrs Weight 89.086 kg Weight 89.448 kg Weight 99.79 kg Physical Exam Narrative: On his cell phone on entering the room. [place], left ear is better. Const: COMMON NORMALS: patient oriented x3 and alert GENERAL APPEARANCE: cooperative ORIENTATION/CONSCIOUSNESS: Yes awake HENMT: COMMON NORMALS: oropharynx normal Neck/C-Spine: COMMON NORMALS: no JVD Resp: COMMON NORMALS: normal respiratory effort and clear to auscultation bilaterally AUSCULTATION: clear to auscultation bilaterally Cardio: COMMON NORMALS: no JVD, regular rhythm, S1 normal heart sound present, S2 normal heart sound present and No murmurs present (Cardio) RHYTHM: regular rhythm HEART SOUNDS: S1 normal heart sound present and S2 normal heart sound present GI: COMMON NORMALS: Normal to inspection, nondistended, normoactive bowel sounds present, Soft to palpation and non-tender PALPATION: Yes Soft to palpation Extremity: COMMON NORMALS: no joint enlargement GENERAL: Yes edema (2+ edema) Neuro: COMMON NORMALS: patient oriented x3 and moves all extremities SENSORIUM/ORIENTATION: Yes alert Psych: MOOD & AFFECT: Yes irritable Skin: OTHER: Extensive cellulitis bilateral lower extremities, with edema, weeping, cracking skin, shallow ulcerations, with serous discharge, at times purulent appearing with impetigo like crusts over several additional ulcerations. Data 07/25/22 03:29 07/25/22 03:29 Micro: Microbiology 07/25/22 03:37 Blood Culture - Preliminary Blood SPECIMEN COLLECTED 07/25/22 03:29 Blood Culture - Preliminary Blood SPECIMEN COLLECTED A&P Assessment and plan (1) Cellulitis: Extensive bilateral lower extremity cellulitis with bilateral severe edema, with skin cracking, weeping, shallow ulcerations, erythema, small amounts of purulence, crusts. Continue the antibiotics as requested. Add Diflucan. Assess venous duplex for DVT. Assess US JANEL. Goal would be to apply compression wraps. No abscess on CT. Qualifiers: Laterality: left Site of cellulitis: extremity Site of cellulitis of extremity: lower extremity Qualified Code(s): L03.116 - Cellulitis of left lower limb (2) Closed head injury: Hematoma left forehead. (3) Atrial fibrillation: On Eliquis. (4) Hypothyroidism: Continue levothyroxine. (5) Wheelchair bound: (6) Back pain: Tells me he has been having severe back pain, asking for stronger pain medicine. Very irritable. Discussed the multimodal pain treatment she starts raising his voice. Unfortunately may be a component of pain seeking as he was working on his cell phone when I had just entered the room, however, noted multiple chronic findings CT lumbar spine with advanced spondylosis and degenerative change. Plan #Fall #Lumbar spinal stenosis: Upon resolution of #Hypothyroidism #History of DVT and PE #Chronic anticoagulation Full Code DVT prophylaxis: Eliquis should suffice Attestations Medical Necessity Statement*: Continue admission for cyst management of severe bilateral cellulitis with purulent drainage, severe lower extremity edema. 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
[2022-07-25] MEDS: gabapentin 300 mg Capsule 600 MG PO ×3 (13:48→20:38)
[2022-07-25] MEDS: vancomycin 1,250 MG/250 ML PIGGYBACK 250 MG IV (16:23)
[2022-07-25] MEDS: lidocaine 5% Patch 1 PATCH TOPICAL (18:43)
[2022-07-25] MEDS: budesonide 0.5 mg/2 mL Neb 0.25 MG INHALATION (21:37)
[2022-07-26] VITALS: BP 129/68; PULSE 66; RESP 16; TEMP 36.6; O2SAT 92
[2022-07-26] MEDS: vancomycin 1,250 MG/250 ML PIGGYBACK 250 MG IV ×2 (03:24→17:05)
[2022-07-26 04:00] VITALS: BP 138/85; PULSE 67; RESP 17; TEMP 36.6; O2SAT 94
[2022-07-26] MEDS: HYDROcodone-acetaminophen 10-325 mg Tablet 1 TAB PO ×4 (04:56→18:50)
[2022-07-26] MEDS: aztreonam 1,000 MG in sodium chloride 0.9% (plus) 50 ML 100 MG IV ×2 (05:52→18:53)
[2022-07-26 06:14] LABS: Basophils # 0.1 10^3/uL (0.0-0.1); Basophils % 0.7 %; Eosinophils # 0.1 10^3/uL (0.0-0.8); Eosinophils % 1.4 %; Hematocrit 39.8 % (42.0-52.0); Hemoglobin 12.5 g/dL (11.7-16.6); Lymphocytes # 1.1 10^3/uL (0.8-4.8); Lymphocytes % 12.6 %; Mean Corpuscular HGB Conc 31.4 g/dL (30.0-36.0); Mean Corpuscular Hemoglobin 28.8 pg (28.0-34.0); Mean Corpuscular Volume 91.7 fl (80-94); Mean Platelet Volume 9.5 fL (7.4-10.4); Monocytes # 0.7 10^3/uL (0.2-0.9); Monocytes % 8.5 %; Neutrophils # 6.49 10^3/uL (1.8-7.7); Neutrophils % 76.2 %; Nucleated Red Blood Cells % 0 %; Platelet Count 337 10^3/cmm (130-400); Red Blood Count 4.34 10^6/uL (4.1-5.3); White Blood Count 8.5 10^3/uL (4.0-10.0)
[2022-07-26 06:42] LABS: Anion Gap 12.6 (5-19); Blood Urea Nitrogen 18 mg/dL (8-23); Calcium 8.8 mg/dL (8.5-10.5); Carbon Dioxide 26 mmol/L (22-29); Chloride 98 mmol/L (98-107); Glomerular Filtration Rate 112.1 mL/min (90-130); Glucose 99 mg/dL (65-115); Magnesium 2.1 mg/dL (1.7-2.3); Osmolality Calculated 278 mOsm/kg (285-295); Potassium 3.6 mmol/L (3.5-5.1); Sodium 133 mmol/L (136-145)
[2022-07-26 07:58] VITALS: BP 112/66; PULSE 52; RESP 16; TEMP 36.6; O2SAT 94
[2022-07-26 08:00] VITALS: PULSE 62; RESP 16; O2SAT 94
[2022-07-26] MEDS: budesonide 0.5 mg/2 mL Neb 0.25 MG INHALATION (08:00)
[2022-07-26] MEDS: levothyroxine 112 mcg Tablet PO (09:11)
[2022-07-26] MEDS: apixaban 5 mg Tablet PO ×2 (09:11→17:04)
[2022-07-26] MEDS: gabapentin 300 mg Capsule 600 MG PO ×4 (09:11→21:13)
[2022-07-26] MEDS: FUROsemide 20 mg Tablet PO (09:12)
[2022-07-26 15:52] VITALS: BP 158/82; PULSE 69; RESP 17; TEMP 36.8; O2SAT 93
[2022-07-26 15:59] LABS: Vancomycin Trough < 4.0 ug/mL (10-15)
[2022-07-26] MEDS: tizanidine 4 mg Tablet PO (18:51)
[2022-07-26 20:00] VITALS: BP 114/70; PULSE 69; PULSE 75; RESP 16; RESP 17; TEMP 36.6; O2SAT 88; O2SAT 92
--- NOTE | 2022-07-26 20:39 | P.PN_ITS ---
Subjective Subjective: Tells me that he is very upset today and has a number of complaints. He is very upset about why he is on cardiac diet. Discussed with him history of atrial fibrillation listed in his history is probably why he was started on cardiac diet, however, discussed with him also regarding peripheral artery disease noted on arterial duplex. He is still adamant does not want cardiac diet. He states that also his head of bed is not rising above about 60 degrees, states also that the bed feels very short and that he was rubbing his toes on the footboard causing him to bleed. He is upset why a different bed could not be gotten for him, exclaiming this fucking devil while hitting the bedrail. Additionally he is upset he has not been able to watch the Wednesday Bible show without interruptions. Discussed with him regarding venous and arterial duplex studies. Discussed with him risk and benefits of compression therapy. He is shaking his head no, pointing to the basis of soapy water he is looking his feet and stating he prefers to do that instead. Discussed with him to avoid soaking which will lead to further maceration, poor wound healing, and risk of additional infections including fungal infections and Pseudomonas. Discussed again regarding risks and benefits of compression to which he verbalized understanding and agreement. However, a discussion was cut short as the Bible show had begun. Vitals/I&O/Wt Last Vital Signs Temp 98.2 F 07/26/22 15:52 Pulse 69 07/26/22 20:00 Resp 16 07/26/22 20:00 BP 158/82 07/26/22 15:52 Pulse Ox 92 07/26/22 20:00 O2 Del Method 07/26/22 20:00 07/26/22 07/26/22 07/26/22 06:59 14:59 22:59 Intake Total 50 / 1480 Output Total 200 / 400 450 / 450 Balance -150 / 1080 -450 / -450 Weight last 48 hrs Weight 89.086 kg Weight 89.448 kg Weight 99.79 kg Physical Exam Narrative: [place], left ear is better. Const: COMMON NORMALS: patient oriented x3 and alert GENERAL APPEARANCE: cooperative ORIENTATION/CONSCIOUSNESS: Yes awake HENMT: COMMON NORMALS: oropharynx normal Neck/C-Spine: COMMON NORMALS: no JVD Resp: COMMON NORMALS: normal respiratory effort and clear to auscultation francesca aterally AUSCULTATION: clear to auscultation bilaterally Cardio: COMMON NORMALS: no JVD, regular rhythm, S1 normal heart sound present, S2 normal heart sound present and No murmurs present (Cardio) RHYTHM: regular rhythm HEART SOUNDS: S1 normal heart sound present and S2 normal heart sound present GI: COMMON NORMALS: Normal to inspection, nondistended, normoactive bowel sounds present, Soft to palpation and non-tender PALPATION: Yes Soft to palpation Extremity: COMMON NORMALS: no joint enlargement GENERAL: Yes edema (2+ edema) Neuro: COMMON NORMALS: patient oriented x3 and moves all extremities SENSORIUM/ORIENTATION: Yes alert Psych: MOOD & AFFECT: Yes irritable Skin: OTHER: Extensive cellulitis bilateral lower extremities, with edema, weeping, cracking skin, shallow ulcerations, with serous discharge, at times purulent appearing with impetigo like crusts over several additional ulcerations. Data 07/26/22 05:49 07/26/22 05:49 Micro: Microbiology 07/25/22 07:42 Gram Stain - Final Leg - Drainage Wound Culture - Preliminary Gram Negative Rods 07/25/22 03:37 Blood Culture - Preliminary Blood NEGATIVE TO DATE 07/25/22 03:29 Blood Culture - Preliminary Blood NEGATIVE TO DATE A&P Assessment and plan (1) Cellulitis: Discussed with him not to soak his feet. Discussed with him results of venous arterial duplex. Discussed PAD. Discussed compression wraps, will request with PT. Without reduction in edema, cracking and weeping of the skin cellulitis is unlikely to heal. Continue empiric antibiotics and Diflucan. Attempt mobilization with PT. Extensive bilateral lower extremity cellulitis with bilateral severe edema, with skin cracking, weeping, shallow ulcerations, erythema, small amounts of purulence, crusts. No abscess on CT. Qualifiers: Laterality: left Site of cellulitis: extremity Site of cellulitis of extremity: lower extremity Qualified Code(s): L03.116 - Cellulitis of left lower limb (2) Closed head injury: Hematoma left forehead. Improving. (3) Atrial fibrillation: On Eliquis. (4) Hypothyroidism: Continue levothyroxine. (5) Wheelchair bound: (6) Back pain: Tells me he has been having severe back pain, asking for stronger pain medicine. Very irritable. Discussed the multimodal pain treatment she starts raising his voice. Unfortunately may be a component of pain seeking as he was working on his cell phone when I had just entered the room, however, noted multiple chronic findings CT lumbar spine with advanced spondylosis and degenerative change. Gentle mobilization with PT. May need to consider TLSO brace. Nonhealing of extensive severe cellulitis needs to follow-up with with his providers as previously planned. Plan #Fall #Lumbar spinal stenosis: Upon resolution of #Hypothyroidism #History of DVT and PE #Chronic anticoagulation Full Code DVT prophylaxis: Eliquis should suffice Attestations Medical Necessity Statement*: Continue admission for management of severe bilateral lower extremity cellulitis with severe edema, unable to ambulate secondary to this and degenerative spine disease. 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
[2022-07-27] VITALS (8 sets, daily range): BP systolic 94–163; BP diastolic 59–72; PULSE 52–72; RESP 15–18; TEMP 36.5–37.4; O2SAT 90–95
[2022-07-27] MEDS: vancomycin 1,250 MG/250 ML PIGGYBACK 250 MG IV ×3 (00:13→15:12)
[2022-07-27] MEDS: HYDROcodone-acetaminophen 10-325 mg Tablet 1 TAB PO ×5 (00:26→23:26)
[2022-07-27] MEDS: aztreonam 1,000 MG in sodium chloride 0.9% (plus) 50 ML 100 MG IV ×2 (05:41→17:42)
[2022-07-27 06:19] LABS: Anion Gap 12.8 (5-19); Blood Urea Nitrogen 19 mg/dL (8-23); Calcium 8.9 mg/dL (8.5-10.5); Carbon Dioxide 27 mmol/L (22-29); Chloride 102 mmol/L (98-107); Glomerular Filtration Rate 83.9 mL/min (90-130); Glucose 92 mg/dL (65-115); Osmolality Calculated 288 mOsm/kg (285-295); Potassium 3.8 mmol/L (3.5-5.1); Sodium 138 mmol/L (136-145)
[2022-07-27] MEDS: gabapentin 300 mg Capsule 600 MG PO ×4 (10:10→20:14)
[2022-07-27] MEDS: levothyroxine 112 mcg Tablet PO (10:11)
[2022-07-27] MEDS: apixaban 5 mg Tablet PO ×2 (10:11→17:41)
[2022-07-27] MEDS: FUROsemide 20 mg Tablet PO (10:11)
[2022-07-27] MEDS: tizanidine 4 mg Tablet PO (10:26)
[2022-07-27] MEDS: lidocaine 5% Patch 1 PATCH TOPICAL (11:16)
[2022-07-27 14:09] LABS: Iron 35 ug/dL (59-158); Percent Saturation 19.1 % (20-50); Thyroid Stimulating Hormone 8.14 uIU/mL (0.27-4.20); Total Iron Binding Capacity 183 mcg/dl; Unsaturated Iron Binding 148 ug/dL (112-347); Vitamin B12 475 pg/mL (232-1245)
[2022-07-27 14:46] LABS: Free T4 Free Thyroxine 0.85 ng/dL (0.82-1.77); T3 Free 1.2 PG/ML (2.0-4.4)
--- NOTE | 2022-07-27 14:56 | P.PN_ITS ---
Subjective Subjective: Hospital course, labs appreciated. On examination patient sitting comfortably in bed with legs hanging at bedside, covered in Lorri hugger with nurse at bedside. Patient states he thinks his legs are slightly better as they are less edematous but still concerned about infection in his legs which he thinks is from skin eating bacteria. He wants his legs to be wrapped to help him from infection. He thinks there is a lot of fluid in his legs and going higher on the dose of Lasix will help. We discussed in detail regarding need of further IV antibiotics along with aggressive wound care for further healing of his wounds and legs. We discussed that he is already on Lasix and currently with his borderline blood pressures it would be better to continue the current dose of Lasix. Patient verbalized understanding for now. Vitals/I&O/Wt Last Vital Signs Temp 97.8 F 07/27/22 12:07 Pulse 72 07/27/22 12:07 Resp 15 07/27/22 12:07 BP 94/59 07/27/22 12:07 Pulse Ox 93 07/27/22 12:07 O2 Del Method 07/27/22 12:07 07/26/22 07/27/22 07/27/22 22:59 06:59 14:59 Intake Total 540 / 540 250 / 790 Output Total 100 / 550 Balance 540 / 90 150 / 240 Physical Exam Narrative: [place], left ear is better. Const: COMMON NORMALS: patient oriented x3 and alert GENERAL APPEARANCE: cooperative ORIENTATION/CONSCIOUSNESS: Yes awake HENMT: COMMON NORMALS: oropharynx normal Neck/C-Spine: COMMON NORMALS: no JVD Resp: COMMON NORMALS: normal respiratory effort and clear to auscultation bi laterally AUSCULTATION: clear to auscultation bilaterally Cardio: COMMON NORMALS: no JVD, regular rhythm, S1 normal heart sound present, S2 normal heart sound present and No murmurs present (Cardio) RHYTHM: regular rhythm HEART SOUNDS: S1 normal heart sound present and S2 normal heart sound present GI: COMMON NORMALS: Normal to inspection, nondistended, normoactive bowel sounds present, Soft to palpation and non-tender PALPATION: Yes Soft to palpation Extremity: COMMON NORMALS: no joint enlargement GENERAL: Yes edema (2+ edema) Neuro: COMMON NORMALS: patient oriented x3 and moves all extremities SENSORIUM/ORIENTATION: Yes alert Psych: MOOD & AFFECT: Yes irritable Skin: OTHER: Extensive cellulitis bilateral lower extremities, with edema, purulent weeping, cracking skin, shallow ulcerations, with few open wounds at the posterior aspect of the calf also having purulent discharge Data 07/26/22 05:49 07/27/22 05:24 Micro: Microbiology 07/25/22 07:42 Gram Stain - Final Leg - Drainage Wound Culture - Preliminary Pseudomonas aeruginosa A&P Assessment and plan (1) Cellulitis: Continue with empiric vancomycin and aztreonam. Will need to switch to oral antibiotics on discharge to finish around 2 weeks of antibiotic course MRSA positive. Appreciate CT leg which is negative for abscess or osteomyelitis. We will hold off on further Diflucan. PT/OT. Will consult podiatry/Dr. Ramirez for further evaluation. Wound care as per podiatry. Currently having borderline blood pressures. proBNP normal. We will hold off on increasing the dose of Lasix for now. Continue with oral Lasix 20 mg daily. Continue with [place] 10 mg every 4 hour as needed. Add morphine 1 mg IV every 6 hour as needed along with tramadol 50 mg every 6 hours as needed Qualifiers: Laterality: left Site of cellulitis: extremity Site of cellulitis of extremity: lower extremity Qualified Code(s): L03.116 - Cellulitis of left lower limb (2) Closed head injury: Hematoma left forehead. Improving. (3) Atrial fibrillation: On Eliquis. Currently rate controlled. (4) Hypothyroidism: Continue levothyroxine. (5) Wheelchair bound: (6) Back pain: PT/OT. Will need work-up as an outpatient for further management once cellulitis improves. Plan #Fall #Lumbar spinal stenosis: Upon resolution of #Hypothyroidism #History of DVT and PE #Chronic anticoagulation Analgesia: Continue with home dose of [place]. At tramadol 50 mg every 6 hours, IV morphine 1 mg every 4 hour as needed. Glycemic control: Not needed. A1c 5.8. Nutrition: Regular diet. High-protein diet. CODE STATUS: Full code PUD prophylaxis: Famotidine twice daily DVT prophylaxis: Eliquis will suffice for DVT prophylaxis Discharge planning: Home with possible home health for wound care once medically stable hopefully next 48 hours. [facility] with [facility] at [facility]. This documentation was created by [employer] program manager rn software. Every effort was made to ensure accuracy of program manager rn. Any obvious errors or omissions should be clarified with the author of the document. Attestations Medical Necessity Statement*: Requires further hospitalization for significant bilateral purulent cellulitis requiring aggressive wound care and IV antibiotics Time Spent in Patient Care: Greater than 35 minutes Coding Level of Care Code Acute Safety Trainer for g Fwd Diagnoses Cellulitis L03.116 Laterality: left Site of cellulitis: extremity Site of cellulitis of extremity: lower extremity Closed head injury S09.90XA Atrial fibrillation I48.91 Hypothyroidism E03.9 Wheelchair bound Z99.3 Back pain M54.9
[2022-07-27 15:04] LABS: Folate Level 10.2 ng/mL (4.5-32.2)
[2022-07-27] MEDS: cyanocobalamin 1,000 mcg/mL SDV 1000 MCG IM (15:12)
--- NOTE | 2022-07-27 16:28 | P.CONIM_ITS ---
Providers/Reason For Consult Consulting Physician/Specialty*: Baldev Ramirez D.P.M. Reason for Consult*: Bilateral leg ulcerations Attending Physician: Jose Goldstein MD History of Present Illness History of Present Illness Tayo Newberry is a 67 year old male presents with bilateral leg wounds., Has had ongoing wounds at both legs associate with swelling, redness, drainage and pain. He lives with his aide/caregiver who states that she has been wiping his leg wounds with 70% isopropyl alcohol daily trying to get rid of the infection, he reports this was painful. Past medical history significant for hypothyroidism, A. fib. Patient denies any subjective nausea, vomiting, fever, chills, shortness of breath or chest pain. Review of Systems General: Reports: 10 or more systems reviewed and unremarkable except in HPI and below Const: Denies: fever(s) or chills Eyes: Denies: change in vision Card: Denies: chest pain or palpitations Resp: Denies: dyspnea or productive cough GI: Denies: abdominal pain, nausea or vomiting : Denies: flank pain Musc: Reports: extremity swelling, joint stiffness and deformity Skin/Breast: Reports: erythema, sores, changes in skin color, dry skin, nail changes and change in hair Neuro: Reports: numbness in extremities, sensory changes and difficulty walking Psych: Denies: suicidal ideation Endo: Denies: change in body appearance Dante/Lymph: Denies: tender lymph nodes Medications/Allergies Home Medications Medication Instructions Recorded Confirmed Last Taken Type apixaban 5 mg tablet (Eliquis) 5 mg PO BID 03/05/22 07/25/22 07/24/22 History duloxetine 30 mg capsule,delayed 30 mg PO DAILY 03/05/22 07/25/22 03/05/22 History release gabapentin 600 mg tablet 600 mg PO QID 03/05/22 07/25/22 03/05/22 History levothyroxine 112 mcg tablet 112 mcg PO DAILY 03/05/22 07/25/22 03/05/22 History tizanidine 4 mg tablet 4 mg PO BID PRN Muscle Spasm 03/05/22 07/25/22 Unknown History albuterol sulfate 90 mcg/actuation 2 inh inhalation Q8H PRN shortness 03/08/22 07/25/22 Unknown Rx aerosol inhaler of breath or wheezing #8.5 grams fluticasone fur. 100 mcg-umeclid 1 inh inhalation DAILY #60 ea 03/08/22 07/25/22 Unknown Rx 62.5 mcg-vilant 25 mcg inhalat.powder (Trelegy Ellipta) furosemide 20 mg tablet (Lasix) 20 mg PO DAILY PRN edema #60 tabs 03/08/22 07/25/22 07/24/22 Rx hydrocodone 10 mg-acetaminophen 1 tab PO 6XD PRN Pain 07/25/22 07/25/22 Unknown History 325 mg tablet Allergies Allergy/AdvReac Type Severity Reaction Status Date / Time Penicillins Allergy Unknown Verified 03/05/22 14:11 Current Medications Generic Name Dose Route Start Last Admin Trade Name Freq PRN Reason Stop Dose Admin Hydrocodone Bitart/Acetaminophen 1 tab 07/25/22 05:55 07/27/22 15:12 Hydrocodone-Acetaminophen 10-325 Mg Tablet PO 1 tab 6XD PRN Administration Pain Apixaban 5 mg 07/25/22 09:00 07/27/22 10:11 Apixaban 5 Mg Tablet PO 5 mg BID CHERISE Administration Budesonide 0.25 mg 07/25/22 20:00 07/27/22 08:18 Budesonide 0.5 Mg/2 Ml Neb INHALATION Not Given BID.RESPIRATORY CHERISE Duloxetine HCl 30 mg 07/25/22 09:00 07/27/22 10:12 Duloxetine 30 Mg Capsule PO Not Given DAILY CHERISE Furosemide 20 mg 07/26/22 09:00 07/27/22 10:11 Furosemide 20 Mg Tablet PO 20 mg DAILY CHERISE Administration Gabapentin 600 mg 07/25/22 13:00 07/27/22 15:12 Gabapentin 300 Mg Capsule PO 600 mg QID CHERISE Administration Aztreonam 1,000 mg/ Sodium 50 mls @ 100 mls/hr 07/25/22 06:00 07/27/22 05:41 Chloride IV 100 mls/hr Q12H CHERISE Administration Protocol Vancomycin/PEG/NADA/Lysine/Water 1,250 mg in 250 mls @ 250 mls/hr 07/26/22 16:15 07/27/22 15:12 Vancocin IV 250 mls/hr Q8H CHERISE Administration Levothyroxine Sodium 112 mcg 07/25/22 09:00 07/27/22 10:11 Levothyroxine 112 Mcg Tablet PO 112 mcg DAILY CHERISE Administration Lidocaine 1 patch 07/25/22 16:50 07/27/22 11:16 Lidocaine 5% Patch TOPICAL 1 patch [id number] CHERISE Administration Tizanidine HCl 4 mg 07/25/22 05:55 07/27/22 10:26 Tizanidine 4 Mg Tablet PO 4 mg BID PRN Administration Muscle Spasm PFSH Acute PFSH: Medical History (Updated 07/27/22 @ 21:11 by Baldev Ramirez DPM) Atrial fibrillation Cellulitis DVT (deep venous thrombosis) Hypothyroidism Pneumonia Pulmonary embolism Wheelchair bound Surgical History H/O cervical spine surgery History of tonsillectomy Social History Smoking and tobacco status: never smoked Alcohol intake: never Vitals/I&O/Wt Last Vital Signs Temp 98.2 F 07/27/22 15:49 Pulse 62 07/27/22 15:49 Resp 15 07/27/22 15:49 BP 117/72 07/27/22 15:49 Pulse Ox 93 07/27/22 15:49 O2 Del Method 07/27/22 15:49 07/27/22 07/27/22 07/27/22 06:59 14:59 22:59 Intake Total 250 / 790 250 / 250 Output Total 100 / 550 Balance 150 / 240 250 / 250 Physical Exam Narrative: GENERAL: Patient is alert and oriented ?3 and in no acute distress. The following is a focused bilateral lower extremity exam. His health aide who he lives with is present. VASCULAR: Dorsalis pedis left and right foot are palpable. Posterior tibial arteries palpable. Capillary refill time less than 3 seconds to the distal hallux bilaterally. Calf is supple and nontender proximally and distally. Decreased pedal hair growth left and right foot. +2 pitting edema to the bilateral lower extremity. NEUROLOGICAL: Protective sensation intact to light touch. DERMATOLOGICAL: Grade 2 venous ulceration with fiber granular base anterior lateral right leg at the distal one third, venous ulceration grade 2 at the left posterior medial and lateral leg. Bilateral venous leg ulcerations demonstrate serous drainage, no purulence. Dry flaking and cracking skin to the bilateral lower extremities. Dystrophic toenails x10. MUSCULOSKELETAL: Tenderness palpation at bilateral venous ulcerations. There is no crepitus with soft tissue palpation to the bilateral lower extremity. Data 07/26/22 05:49 07/27/22 05:24 Micro: Microbiology 07/25/22 07:42 Gram Stain - Final Leg - Drainage Wound Culture - Preliminary Pseudomonas aeruginosa A&P Assessment and plan (1) Ulcer of extremity due to chronic venous insufficiency: (2) Lymphedema: (3) Bilateral lower leg cellulitis: Plan 67-year-old male with bilateral lower extremity venous stasis ulcers and cellulitis. Clinical improvement while on IV antibiotics empirically No leukocytosis, white blood cell count today is 8.5 No evidence of deep vein thrombosis to left and right lower extremities, venous duplex performed 07/25/2022 Right ankle-brachial index 0.78 Left ankle-brachial index 0.87 Left and right lower extremity CT scan negative for fluid collection, abscess, soft tissue emphysema or osseous destruction. Leg wound culture significant for Pseudomonas and strep pyogenes * No plans for surgical intervention during this hospitalization, can be managed medically with decongestive therapy, oral antibiotics and wound care follow-up * Bilateral Unna boot with Kerlix outer, Martín wrap and stockinette applied. * Patient advised to elevate his feet and avoid extended periods of time in a gravity dependent position. * Educated patient and his caregiver on importance of adhering to wound care recommendations. I discouraged utilizing isopropyl alcohol to wipe his legs. * Patient okay for discharge from podiatry standpoint. Recommend wound care clinic follow-up for continued management of venous leg ulcers. Coding Level of Care Code Acute Wildlife And Game Protector for [facility] Fwd Diagnoses Ulcer of extremity due to chronic venous insufficiency L98.499; I87.2 Lymphedema I89.0 Bilateral lower leg cellulitis L03.116; L03.115 Comment CPT 43385 x2
[2022-07-27 16:32] LABS: Vancomycin Trough 45.3 ug/mL (10-15)
--- NOTE | 2022-07-27 17:15 | PC.NURSE ---
This RN performed wound care to BLE as ordered by Dr. Ramirez: cleansed area lightly with antibacterial soap and water as patient would tolerate. Applied zinc unna boot loosely overlapped to the anterior of BLE, secured loosely with kerlex and haim wrap. Patient tolerated procedure well with minimal discomfort. I provided patient education on elevating BLE to alleviate edema. He verbalizes understanding. Gilberto Chu RN notified of new orders and dressing change.
[2022-07-27] MEDS: TRAMadol 50 mg Tablet PO (20:15)
--- NOTE | 2022-07-27 23:49 | PC.NURSE ---
Called Vanc result of 32 to Raven Luis.
[2022-07-28] VITALS (8 sets, daily range): BP systolic 113–130; BP diastolic 66–76; PULSE 51–66; RESP 17–20; TEMP 36.8–37.1; O2SAT 90–94
[2022-07-28 02:46] LABS: Basophils # 0.1 10^3/uL (0.0-0.1); Basophils % 0.8 %; Eosinophils # 0.3 10^3/uL (0.0-0.8); Hematocrit 35.9 % (42.0-52.0); Hemoglobin 11.8 g/dL (11.7-16.6); Lymphocytes # 1.6 10^3/uL (0.8-4.8); Lymphocytes % 19.1 %; Mean Corpuscular HGB Conc 32.9 g/dL (30.0-36.0); Mean Corpuscular Hemoglobin 29.5 pg (28.0-34.0); Mean Corpuscular Volume 89.8 fl (80-94); Mean Platelet Volume 9.6 fL (7.4-10.4); Monocytes # 0.7 10^3/uL (0.2-0.9); Monocytes % 8.5 %; Neutrophils # 5.66 10^3/uL (1.8-7.7); Nucleated Red Blood Cells % 0 %; Platelet Count 352 10^3/cmm (130-400); Red Cell Distribution Width 13.9 % (12.1-15.1); White Blood Count 8.3 10^3/uL (4.0-10.0)
[2022-07-28 03:11] LABS: Chol HDL Ratio 3.76 mg/dL (1.0-5.00); Cholesterol 124 mg/dL (0-200); LDL Cholesterol Calculated 65 mg/dL (50-129); Triglycerides 129 mg/dL (0-150); VLDL Cholestrol Calculation 26 mg/dL (0-30)
[2022-07-28 03:12] LABS: Alanine Aminotransferase 10 U/L (0-41); Alkaline Phosphatase 65 U/L (40-130); Anion Gap 11.5 (5-19); Aspartate Amino Transferase 16 U/L (0-40); Blood Urea Nitrogen 22 mg/dL (8-23); Carbon Dioxide 26 mmol/L (22-29); Chloride 104 mmol/L (98-107); Globulin 3.2 g/dL (1.3-4.6); Glomerular Filtration Rate 96.1 mL/min (90-130); Glucose 99 mg/dL (65-115); Osmolality Calculated 289 mOsm/kg (285-295); Potassium 3.5 mmol/L (3.5-5.1); Sodium 138 mmol/L (136-145); Total Bilirubin 0.2 mg/dL (0.15-1.2)
[2022-07-28] MEDS: TRAMadol 50 mg Tablet PO ×2 (03:44→21:04)
[2022-07-28 04:05] LABS: Albumin Level 2.7 g/dL (3.5-5.2); Calcium 8.3 mg/dL (8.5-10.5); HDL Cholesterol 33 mg/dL (60-100); Total Protein 5.9 g/dL (6.6-8.7)
[2022-07-28] MEDS: aztreonam 1,000 MG in sodium chloride 0.9% (plus) 50 ML 100 MG IV ×2 (05:19→17:55)
--- NOTE | 2022-07-28 06:20 | P.PN_ITS ---
Vitals/I&O/Wt Last Vital Signs Temp 98.5 F 07/28/22 04:00 Pulse 58 L 07/28/22 04:00 Resp 17 07/28/22 04:00 BP 117/71 07/28/22 04:00 Pulse Ox 90 07/28/22 04:00 O2 Del Method 07/27/22 20:00 07/27/22 07/27/22 07/28/22 14:59 22:59 06:59 Intake Total 250 / 250 1070 / 1320 50 / 1370 Output Total 250 / 250 Balance 250 / 250 1070 / 1320 -200 / 1120 Data 07/28/22 02:04 07/28/22 02:04 Micro: Microbiology 07/25/22 07:42 Gram Stain - Final Leg - Drainage Wound Culture - Preliminary Pseudomonas aeruginosa Strep pyogenes (grp a) Coding Level of Care Code Acute S[employer] Sequins for [facility]
[2022-07-28 08:41] LABS: Vancomycin Trough 16.5 ug/mL (10-15)
[2022-07-28] MEDS: tizanidine 4 mg Tablet PO ×2 (09:26→17:56)
[2022-07-28] MEDS: HYDROcodone-acetaminophen 10-325 mg Tablet 1 TAB PO ×3 (09:26→17:09)
[2022-07-28] MEDS: apixaban 5 mg Tablet PO ×2 (09:27→17:09)
[2022-07-28] MEDS: FUROsemide 20 mg Tablet PO (09:28)
[2022-07-28] MEDS: cyanocobalamin 1,000 mcg Tablet 500 MCG PO (09:28)
[2022-07-28] MEDS: gabapentin 300 mg Capsule 600 MG PO ×4 (09:28→21:03)
[2022-07-28] MEDS: levothyroxine 112 mcg Tablet PO (09:29)
[2022-07-28] MEDS: lidocaine 5% Patch 1 PATCH TOPICAL ×2 (09:31→21:03)
--- NOTE | 2022-07-28 12:04 | PHA.FALL ---
A Pharmacy Consult Was Conducted For Tayo Newberry Due To: Aguilar Fall Scale Risk Level: High Fall Risk On 07/28/22 08:00 And A Medication Fall Risk Score Greater Than 10. The Recommendations Are As Follows: High Risk: Pompey Tramadol Morphine MOderate Risk: Gabapentin Furosemide Cymbalta Baclofen I think this patient would benefit from a review of necessity of pain medications and a more clear clarification on pain classification (mild, moderate, severe, etc) This patient is on several appropriate alternatives for pain such as: topical capsaicin products and lidocaine patches and acetaminophen. Thank you for involving me in this patient's care!
[2022-07-28] MEDS: vancomycin 1,250 MG/250 ML PIGGYBACK 250 MG IV (12:24)
--- NOTE | 2022-07-28 14:29 | PM.PN ---
Subjective Subjective: No acute events overnight. Patient has remained hemodynamically stable and afebrile. Has remained and has Unna boots for wound care. States he is feeling better. But complaining of burning at the back of his calves and feet. Denies any nausea, drink, headache. Vitals/I&O/Wt Last Vital Signs Temp 98.2 F 07/28/22 11:55 Pulse 56 L 07/28/22 11:55 Resp 17 07/28/22 11:55 BP 119/71 07/28/22 11:55 Pulse Ox 93 07/28/22 11:55 O2 Del Method 07/28/22 07:56 07/27/22 07/28/22 07/28/22 22:59 06:59 14:59 Intake Total 1070 / 1320 50 / 1370 1090 / 1090 Output Total 250 / 250 300 / 300 Balance 1070 / 1320 -200 / 1120 790 / 790 Physical Exam Narrative: METLAKATLA, left ear is better. Const: COMMON NORMALS: patient oriented x3 and alert GENERAL APPEARANCE: cooperative ORIENTATION/CONSCIOUSNESS: Yes awake HENMT: COMMON NORMALS: oropharynx normal Neck/C-Spine: COMMON NORMALS: no JVD Resp: COMMON NORMALS: normal respiratory effort and clear to auscultation bilaterally AUSCULTATION: clear to auscultation bilaterally Cardio: COMMON NORMALS: no JVD, regular rhythm, S1 normal heart sound present, S2 normal heart sound present and No murmurs present (Cardio) RHYTHM: regular rhythm HEART SOUNDS: S1 normal heart sound present and S2 normal heart sound present GI: COMMON NORMALS: Normal to inspection, nondistended, normoactive bowel sounds present, Soft to palpation and non-tender PALPATION: Yes Soft to palpation Extremity: COMMON NORMALS: no joint enlargement GENERAL: Yes edema (2+ edema) Neuro: COMMON NORMALS: patient oriented x3 and moves all extremities SENSORIUM/ORIENTATION: Yes alert Psych: MOOD & AFFECT: Yes irritable Skin: OTHER: Extensive cellulitis bilateral lower extremities, with edema, purulent weeping, cracking skin, shallow ulcerations, with few open wounds at the posterior aspect of the calf also having purulent discharge Data 07/28/22 02:04 07/28/22 02:04 Micro: Microbiology 07/25/22 07:42 Gram Stain - Final Leg - Drainage Wound Culture - Preliminary Pseudomonas aeruginosa Strep pyogenes (grp a) A&P Assessment and plan (1) Cellulitis: Continue with empiric vancomycin and aztreonam. Will need to switch to oral antibiotics on discharge to finish around 2 weeks of antibiotic course MRSA positive. Appreciate CT leg which is negative for abscess or osteomyelitis. We will hold off on further Diflucan. PT/OT. Will consult podiatry/Dr. Ramirez for further evaluation. Wound care as per podiatry. Currently having borderline blood pressures. proBNP normal. We will hold off on increasing the dose of Lasix for now. Continue with oral Lasix 20 mg daily. Continue with Ancram 10 mg every 4 hour as needed. Add morphine 1 mg IV every 6 hour as needed along with tramadol 50 mg every 6 hours as needed Qualifiers: Laterality: left Site of cellulitis: extremity Site of cellulitis of extremity: lower extremity Qualified Code(s): L03.116 - Cellulitis of left lower limb (2) Closed head injury: Hematoma left forehead. Improving. (3) Atrial fibrillation: On Eliquis. Currently rate controlled. (4) Hypothyroidism: Continue levothyroxine. (5) Wheelchair bound: (6) Back pain: PT/OT. Will need work-up as an outpatient for further management once cellulitis improves. Plan #Fall #Lumbar spinal stenosis: Upon resolution of #Hypothyroidism #History of DVT and PE #Chronic anticoagulation Analgesia: Continue with home dose of Ancram. At tramadol 50 mg every 6 hours, IV morphine 1 mg every 4 hour as needed. Glycemic control: Not needed. A1c 5.8. Nutrition: Regular diet. High-protein diet. CODE STATUS: Full code PUD prophylaxis: Famotidine twice daily DVT prophylaxis: Eliquis will suffice for DVT prophylaxis Plan for the day: Continue with current antibiotics with vancomycin and aztreonam. We will plan to discharge on Augmentin Levaquin for next 10 days. Appreciate podiatry recommendations. Continue wound care as per podiatry. Plan to discharge with referral to wound care for extensive therapy as an outpatient. Patient is agreeable. Continue with physical therapy. Plan to discharge in next 24 hours. Discharge planning: Home with possible home health for wound care once medically stable hopefully next 48 hours. [facility]. This documentation was created by [employer] advisory services associate software. Every effort was made to ensure accuracy of advisory services associate. Any obvious errors or omissions should be clarified with the author of the document. Attestations Medical Necessity Statement*: Requires further hospitalization for purulent cellulitis secondary to chronic venous stasis/lymphedema while patient is on IV antibiotics and aggressive wound care Time Spent in Patient Care: Greater than 35 minutes Coding Level of Care Code Acute Graduate Recruiter for g Fwd Diagnoses Cellulitis L03.116 Laterality: left Site of cellulitis: extremity Site of cellulitis of extremity: lower extremity Closed head injury S09.90XA Atrial fibrillation I48.91 Hypothyroidism E03.9 Wheelchair bound Z99.3 Back pain M54.9
[2022-07-29 00:12] VITALS: BP 125/73; PULSE 67; RESP 16; TEMP 37.1; O2SAT 95
[2022-07-29 03:33] VITALS: BP 131/77; PULSE 59; RESP 16; TEMP 37; O2SAT 92
[2022-07-29] MEDS: HYDROcodone-acetaminophen 10-325 mg Tablet 1 TAB PO ×2 (04:24→12:38)
[2022-07-29] MEDS: vancomycin 1,250 MG/250 ML PIGGYBACK 250 MG IV (04:25)
[2022-07-29] MEDS: aztreonam 1,000 MG in sodium chloride 0.9% (plus) 50 ML 100 MG IV (05:40)
[2022-07-29 08:00] VITALS: BP 158/84; PULSE 60; PULSE 68; RESP 18; RESP 19; TEMP 36.6; O2SAT 92; O2SAT 93
[2022-07-29] MEDS: cyanocobalamin 1,000 mcg Tablet 500 MCG PO (08:20)
[2022-07-29] MEDS: gabapentin 300 mg Capsule 600 MG PO ×2 (08:20→12:38)
[2022-07-29] MEDS: levothyroxine 112 mcg Tablet PO (08:21)
[2022-07-29] MEDS: FUROsemide 20 mg Tablet PO (08:21)
[2022-07-29] MEDS: apixaban 5 mg Tablet PO (08:21)
--- NOTE | 2022-07-29 09:26 | P.DS_ITS ---
Discharge Providers Date of Admission: 07/25/22 04:32 Date of Discharge: July 29, 2022 Attending Provider at Admission: Cassandra Schulz MD Attending Provider at Discharge: Jose Goldstein MD Consults: Podiatry: Dr. Ramirez Diagnoses at Discharge Discharge Diagnosis (1) Cellulitis: Status: Acute Qualifiers: Laterality: left Site of cellulitis: extremity Site of cellulitis of extremity: lower extremity Qualified Code(s): L03.116 - Cellulitis of left lower limb (2) Closed head injury: Status: Acute (3) Atrial fibrillation: Status: Acute (4) Hypothyroidism: Status: Acute (5) Wheelchair bound: Status: Acute (6) Back pain: Status: Acute Reason for Visit Reason for Visit: FALL Brief History: History as per HPI: Tayo Newberry is a 67 year old male with past medical history of atrial fibrillation, cellulitis, DVT, hypothyroidism, pneumonia, pulmonary embolism, patient is wheelchair-bound, presented to the hospital after he states he fell out of bed and hit his head.? He was concerned because he is on a blood thinner.? He had mild headache and neck pain along with low back pain.? Patient also has a history of lumbar spinal stenosis for which he is supposed to have back surgery in [place] however is waiting for a date.? He had cervical spine surgery with lynnette fixation last year in [place] as well.? He was sent to a detention thereafter.? Patient states due to back pain he cannot find a comfortable position in bed and therefore is a wheelchair.? But also at baseline he cannot walk and uses a walker to walk a few steps to transfer from wheelchair to bed.? Patient also states that he has worsening bilateral lower extremity cellulitis with weeping sores have been going on for the last 6 to 8 weeks.? He was placed on oral antibiotics outpatient by his doctor in [place] however he states none of it has helped so far.? He was admitted this year over the summer for the same issue.? At previous visit in February he had purulent cellulitis and was placed on antibiotics.? He also had left lobe community- acquired pneumonia.? Patient is chronically on Eliquis for history of DVT and PE .? Patient was given pulmonary follow-up at discharge.? Echo done in February 2022 shows EF 69%, mild left ventricular hypertrophy, mild mitral valve regurgitation. ED course: BP 108/64 heart respiratory 16, pulse 88.? White count normal.? Cervical spine CT showed no acute fracture or acute subluxation noted, head CT negative for hemorrhage or midline shift.? It does show a small left forehead hematoma.? Lumbar CT shows multiple chronic findings but nothing acute.? Hospitalist requested to admit patient for cellulitis to bilateral lower extremities.? Sodium 134, potassium 3.3, chloride 96 Hospital Course Hospital Course Patient was admitted to hospital for further evaluation and management. He was started on broad-spectrum antibiotics. He was seen by physical therapy and was put on aggressive wound care. Blood cultures remain negative though wound cultures came back positive for strep and Pseudomonas. As wound was not healing well podiatry consult was done and wound care was done accordingly. After that his wound started improving more aggressively. His hospitalization was otherwise unremarkable. He has been discharged hemodynamic stable condition on oral Levaquin and linezolid for next 10 days with aggressive wound care with home health. Discharge plan was discussed in detail with the patient and he verbalized understanding. Physical Exam Narrative: [place], left ear is better. Const: COMMON NORMALS: patient oriented x3 and alert GENERAL APPEARANCE: cooperative ORIENTATION/CONSCIOUSNESS: Yes awake HENMT: COMMON NORMALS: oropharynx normal Neck/C-Spine: COMMON NORMALS: no JVD Resp: COMMON NORMALS: normal respiratory effort and clear to auscultation bilaterally AUSCULTATION: clear to auscultation bilaterally Cardio: COMMON NORMALS: no JVD, regular rhythm, S1 normal heart sound present, S2 normal heart sound present and No murmurs present (Cardio) RHYTHM: regular rhythm HEART SOUNDS: S1 normal heart sound present and S2 normal heart sound present GI: COMMON NORMALS: Normal to inspection, nondistended, normoactive bowel sounds present, Soft to palpation and non-tender PALPATION: Yes Soft to palpation Extremity: COMMON NORMALS: no joint enlargement GENERAL: Yes edema (2+ edema) Neuro: COMMON NORMALS: patient oriented x3 and moves all extremities SENSORIUM/ORIENTATION: Yes alert Psych: MOOD & AFFECT: Yes irritable Skin: OTHER: Extensive cellulitis bilateral lower extremities, with edema, purulent weeping, cracking skin, shallow ulcerations, with few open wounds at the posterior aspect of the calf also having purulent discharge Discharge Data Studies Completed and Pending Completed Studies During Hospitalization Category Date Time Status CT cervical spin wo con* [id number] Stat Cat Scan 07/25/22 03:[address] head wo con* [id number] Stat Cat Scan 07/25/22 03:[address] lower leg LT wo con* [id number] Urgent Cat Scan 07/25/22 07:[address] lower leg RT wo con* [id number] Urgent Cat Scan 07/25/22 07:[address] lumbar spine wo con* [id number] Stat Cat Scan 07/25/22 03:15 Completed XR chest 1V portable [id number] Routine Exams 07/25/22 05:51 [place] [id number] Routine Ultrasound 07/25/22 11:56 Completed US JANEL [CV ankle brachial index 15699] Routine Ultrasound 07/25/22 11:56 Completed Pending at discharge Category Date Time Status Blood Culture Stat Lab 07/25/22 03:37 Results Vancomycin Trough Routine Lab 07/30/22 14:00 Ordered Wound Culture and Gram Stain Stat Lab 07/25/22 07:42 Results Radiology Impressions Cervical Spine CT 07/25/22 03:15 IMPRESSION: 1. No acute fracture or acute subluxation noted. 2. Extensive previous cervical postop change with advanced rather severe DJD. Head CT 07/25/22 03:15 IMPRESSION: 1. No focal hemorrhage or midline shift. 2. Mild age-related changes. 3. Small left forehead hematoma. Lumbar Spine CT 07/25/22 03:15 IMPRESSION: 1. No acute findings. 2. Multiple chronic findings are discussed above. Advanced spondylosis and degenerative change. Chest X-Ray 07/25/22 05:51 IMPRESSION: No confluent infiltrates in the lungs. Lower Extremity CT 07/25/22 07:42 IMPRESSION: 1. Moderate lower leg region soft tissue swelling, most prominent in the ankle and foot region. These findings may represent cellulitis. No loculated fluid collections or abscess. No osseous erosive changes or soft tissue gas. 2. Mild degenerative changes of the knee and ankle regions, as noted above. Ankle Brachial Index 07/25/22 11:56 IMPRESSION: Ankle brachial indices as above. Venous Duplex 07/25/22 11:56 IMPRESSION: No evidence of deep vein thrombosis. Laboratory Results WBC 8.3 10^3/uL (4.0-10.0) 07/28/22 02:04 RBC 4.00 10^6/uL (4.1-5.3) L 07/28/22 02:04 Hgb 11.8 g/dL (11.7-16.6) 07/28/22 02:04 Hct 35.9 % (42.0-52.0) L 07/28/22 02:04 MCV 89.8 fl (80-94) 07/28/22 02:04 MCH 29.5 pg (28.0-34.0) 07/28/22 02:04 MCHC 32.9 g/dL (30.0-36.0) 07/28/22 02:04 RDW 13.9 % (12.1-15.1) 07/28/22 02:04 Plt Count 352 10^3/cmm (130-400) 07/28/22 02:04 MPV 9.6 fL (7.4-10.4) 07/28/22 02:04 Neut % (Auto) 68.0 % 07/28/22 02:04 Lymph % (Auto) 19.1 % 07/28/22 02:04 [place] % (Auto) 8.5 % 07/28/22 02:04 Eos % (Auto) 3.0 % 07/28/22 02:04 Baso % (Auto) 0.8 % 07/28/22 02:04 Neut # (Auto) 5.66 10^3/uL (1.8-7.7) 07/28/22 02:04 Lymph # (Auto) 1.6 10^3/uL (0.8-4.8) 07/28/22 02:04 [place] # (Auto) 0.7 10^3/uL (0.2-0.9) 07/28/22 02:04 Eos # (Auto) 0.3 10^3/uL (0.0-0.8) 07/28/22 02:04 Baso # (Auto) 0.1 10^3/uL (0.0-0.1) 07/28/22 02:04 Nucleated RBC % (auto) 0 % 07/28/22 02:04 Nucleated RBCs # 0.0 /100WBC 07/28/22 02:04 PT 14.60 SECONDS (12.1-14.9) 07/25/22 03:29 INR 1.11 (0.8-1.2) 07/25/22 03:29 Sodium 138 mmol/L (136-145) 07/28/22 02:04 Potassium 3.5 mmol/L (3.5-5.1) 07/28/22 02:04 Chloride 104 mmol/L (98-107) 07/28/22 02:04 Carbon Dioxide 26 mmol/L (22-29) 07/28/22 02:04 Anion Gap 11.5 (5-19) 07/28/22 02:04 BUN 22 mg/dL (8-23) 07/28/22 02:04 Creatinine 0.8 mg/dL (0.7-1.2) 07/28/22 02:04 GFR Calculation 96.1 mL/min (90-130) 07/28/22 02:04 Glucose 99 mg/dL (65-115) 07/28/22 02:04 Estimat Average Glucose 120 07/25/22 03:29 Hemoglobin A1c 5.8 % (4.0-6.0) 07/25/22 03:29 Calculated Osmolality 289 mOsm/kg (285-295) 07/28/22 02:04 Lactic Acid 1.2 mmol/L (0.5-2.2) 07/25/22 03:29 Calcium 8.3 mg/dL (8.5-10.5) L 07/28/22 02:04 Magnesium 2.1 mg/dL (1.7-2.3) 07/26/22 05:49 Iron 35 ug/dL (59-158) L 07/27/22 05:49 TIBC 183 mcg/dl 07/27/22 05:49 % Saturation 19.1 % (20-50) L 07/27/22 05:49 Unsat Iron Binding 148 ug/dL (112-347) 07/27/22 05:49 Total Bilirubin 0.2 mg/dL (0.15-1.2) 07/28/22 02:04 AST 16 U/L (0-40) 07/28/22 02:04 ALT 10 U/L (0-41) 07/28/22 02:04 Alkaline Phosphatase 65 U/L (40-130) 07/28/22 02:04 NT-Pro-B Natriuret Pep 60 pg/mL (0-125) 07/25/22 03:29 Total Protein 5.9 g/dL (6.6-8.7) L 07/28/22 02:04 Albumin 2.7 g/dL (3.5-5.2) L 07/28/22 02:04 Globulin 3.2 g/dL (1.3-4.6) 07/28/22 02:04 Triglycerides 129 mg/dL (0-150) 07/28/22 02:04 Cholesterol 124 mg/dL (0-200) 07/28/22 02:04 LDL Cholesterol, Calc 65 mg/dL (50-129) 07/28/22 02:04 Total VLDL Cholesterol 26 mg/dL (0-30) 07/28/22 02:04 HDL Cholesterol 33 mg/dL (60-100) L 07/28/22 02:04 Cholesterol/HDL Ratio 3.76 mg/dL (1.0-5.00) 07/28/22 02:04 Vitamin B12 475 pg/mL (232-1245) 07/27/22 05:49 Folate 10.2 ng/mL (4.5-32.2) 07/27/22 13:49 Procalcitonin 0.02 ng/mL (0-0.5) 07/25/22 03:29 TSH 8.14 uIU/mL (0.27-4.20) H 07/27/22 05:49 TSH Cancelled 07/27/22 05:49 Free T4 0.85 ng/dL (0.82-1.77) 07/27/22 05:49 Free T3 1.2 PG/ML (2.0-4.4) L 07/27/22 05:49 Vancomycin Trough 16.5 ug/mL (10-15) H 07/28/22 08:08 Vitals Last Vital Signs Temp 97.9 F 07/29/22 08:00 Pulse 60 07/29/22 08:00 Resp 19 H 07/29/22 08:00 BP 158/84 07/29/22 08:00 Pulse Ox 93 07/29/22 08:00 O2 Del Method 07/29/22 08:00 Discharge Plan Discharge Patient Disposition: Home Health Service Condition: Stable Prescriptions: New Vitamin B-12 1,000 mcg Tablet 500 mcg PO DAILY Qty: 30 0RF levofloxacin 500 mg tablet 500 mg PO Q24H 10 Days Qty: 10 0RF linezolid 600 mg tablet 600 mg PO BID 10 Days Qty: 20 0RF tramadol 50 mg tablet 50 mg PO Q12H PRN (Reason: pain) Qty: 14 0RF Continued gabapentin 600 mg Tablet 600 mg PO QID tizanidine 4 mg Tablet 4 mg PO BID PRN (Reason: Muscle Spasm) levothyroxine 112 mcg Tablet 112 mcg PO DAILY duloxetine 30 mg Capsule,Delayed Release(Dr/Ec) 30 mg PO DAILY Eliquis 5 mg Tablet 5 mg PO BID albuterol sulfate 90 mcg/actuation HFA aerosol inhaler 2 inh inhalation Q8H PRN (Reason: shortness of breath or wheezing) Qty: 8.5 3RF Trelegy Ellipta 100-62.5-25 mcg blister with device 1 inh inhalation DAILY Qty: 60 3RF furosemide [Lasix] 20 mg tablet 20 mg PO DAILY MDD 40mg PRN (Reason: edema) Qty: 60 3RF hydrocodone-acetaminophen 10-325 mg Tablet 1 tab PO 6XD PRN (Reason: Pain) Discharge Orders: Discharge Order (Routine); Ordered 07/29/22 Ordered By: Jose Goldstein Other Ambulatory Orders: DME: Abdullahi (Order) Location: None Selected Ordered By: Jose Goldstein Referrals: [facility] ([facility]) [Outside] Nay Kuo MD [Referring] - 08/05/22 10:45 am WOUND [facility], [Staff Physician] - 08/03/22 8:00 am ([phone]) Discharge Diet: Regular and Low Salt Discharge Activity: Resume usual activity and Increase activity as tolerated Patient Instructions: Levofloxacin (By mouth), Linezolid (By mouth), Cellulitis (GEN), Lymphedema (GEN), Opioid Safety Activity Restrictions/Additional Instructions: Please continue taking your antibiotics for next 10 days. You will be on 2 different kind of antibiotics which would be Levaquin and linezolid. Levaquin will be 1 time a day for next 10 days and linezolid will be 2 times a day for next 10 days. Please continue to follow-up with wound care regularly for aggressive wound care going forward. Please continue to follow directions from wound care. Please follow-up with a primary care provider within next 1 week for repeat CBC and BMP. Discharge Attestations Time Spent in Discharge Care*: greater than 30 min Specific Discharge Activities: educating patient, discussing with pcp/other providers, discussing with complex case manager/social workers/dc planners, documenting/other paperwork and evaluating patient/reviewing data Status at Discharge: Cognitive status at discharge: cognitively intact , Behavioral status at discharge: cooperative , Functional status at discharge: wheelchair bound , Overall status at discharge: patient is back to baseline Quality Metrics Clinical Quality Measures [ No reported AMI, CVA or VTE this stay] Coding Level of Care Code Acute Chg FW DC note Exam Comprehensive Diagnoses Cellulitis L03.116 Laterality: left Site of cellulitis: extremity Site of cellulitis of extremity: lower extremity Closed head injury S09.90XA Atrial fibrillation I48.91 Hypothyroidism E03.9 Wheelchair bound Z99.3 Back pain M54.9
[2022-07-29 10:02] VITALS: BP 158/84; PULSE 60; RESP 19; TEMP 36.6; O2SAT 93
[2022-07-29 12:00] VITALS: BP 137/80; PULSE 66; RESP 18; O2SAT 93
[2022-07-29] MEDS: tizanidine 4 mg Tablet PO (12:38)
== END 2022-07-29 14:39 | disposition home health service (06) | DRG 603 ==
LOC: ER 04:41 → MEDSURG 04:42
PROVIDERS: Internal Medicine; Admitting Provider Internal Medicine; Emergency Provider Emergency Medicine; Visit Provider Student in an Organized Health Care Education/Training Program
DX: L03.116 Cellulitis of left lower limb (principal); L03.115 Cellulitis of right lower limb; S00.83XA Contusion of other part of head, initial encounter; W06.XXXA Fall from bed, initial encounter; I48.91 Unspecified atrial fibrillation; E03.9 Hypothyroidism, unspecified; Z99.3 Dependence on wheelchair; Z86.718 Personal history of other venous thrombosis and embolism; Z86.711 Personal history of pulmonary embolism; M47.816 Spondylosis without myelopathy or radiculopathy, lumbar region; Z98.1 Arthrodesis status; Z87.01 Personal history of pneumonia (recurrent); Z79.01 Long term (current) use of anticoagulants; Z79.51 Long term (current) use of inhaled steroids; Z79.891 Long term (current) use of opiate analgesic; B95.62 Methicillin resistant Staphylococcus aureus infection as the cause of diseases classified elsewhere; I87.8 Other specified disorders of veins; I73.9 Peripheral vascular disease, unspecified; H91.93 Unspecified hearing loss, bilateral
CPT/HCPCS: 36415; 70450; 71045; 72125; 72131; 73700; 80048; 80053; 80061; 80202; 82607; 82746; 83036; 83540; 83550; 83605; 83735; 83880; 84145; 84439; 84443; 84481; 85025; 85610; 87040; 87070; 87075; 87077; 87186; 87205; 93922; 93970; 94640; 96365; 96372; 97116; 97161; 97165; 97530; 97535; 99285; J2270; J3370; J3420; J3490; J7050; J7626

== ENCOUNTER → 2022-08-14 09:52 | Outpatient (BNVA) | payer MEDICAID, SELFPAY | PROVIDERS: Visit Provider Thoracic Surgery (Cardiothoracic Vascular Surgery) | DX: I96 Gangrene, not elsewhere classified (principal); L97.812 Non-pressure chronic ulcer of other part of right lower leg with fat layer exposed; L97.822 Non-pressure chronic ulcer of other part of left lower leg with fat layer exposed | CPT/HCPCS: 97597; 99213; A6252 ==

== ENCOUNTER → 2022-08-21 14:18 | Outpatient (BNVA) | payer MEDICAID, SELFPAY | PROVIDERS: Visit Provider Thoracic Surgery (Cardiothoracic Vascular Surgery) | DX: L03.115 Cellulitis of right lower limb (principal); L03.116 Cellulitis of left lower limb; L97.822 Non-pressure chronic ulcer of other part of left lower leg with fat layer exposed | CPT/HCPCS: 97597; 97598; A6252; A6253 ==

== ENCOUNTER → 2022-08-28 14:27 | Outpatient (BNVA) | payer MEDICAID, SELFPAY | PROVIDERS: Visit Provider Thoracic Surgery (Cardiothoracic Vascular Surgery) | DX: I96 Gangrene, not elsewhere classified (principal); L97.812 Non-pressure chronic ulcer of other part of right lower leg with fat layer exposed; L89.892 Pressure ulcer of other site, stage 2; Z09 Encounter for follow-up examination after completed treatment for conditions other than malignant neoplasm | CPT/HCPCS: 97597 ==

== ENCOUNTER → 2022-09-04 13:19 | Outpatient (BNVA) | payer MEDICAID, SELFPAY | PROVIDERS: Visit Provider Thoracic Surgery (Cardiothoracic Vascular Surgery) | DX: L97.812 Non-pressure chronic ulcer of other part of right lower leg with fat layer exposed (principal); L03.115 Cellulitis of right lower limb; L89.892 Pressure ulcer of other site, stage 2 | CPT/HCPCS: 97597; A6252; A6253 ==

== ENCOUNTER → 2022-09-11 15:16 | Outpatient (BNVA) | payer MEDICAID, SELFPAY | PROVIDERS: Visit Provider Thoracic Surgery (Cardiothoracic Vascular Surgery) | DX: L03.116 Cellulitis of left lower limb (principal); L97.812 Non-pressure chronic ulcer of other part of right lower leg with fat layer exposed; L89.892 Pressure ulcer of other site, stage 2 | CPT/HCPCS: 11042; 97597; A6252 ==

== ENCOUNTER → 2022-09-18 16:25 | Outpatient (BNVA) | payer MEDICARE, MEDICAID, SELFPAY | PROVIDERS: Visit Provider Thoracic Surgery (Cardiothoracic Vascular Surgery) | DX: I96 Gangrene, not elsewhere classified (principal); L89.892 Pressure ulcer of other site, stage 2; L03.115 Cellulitis of right lower limb | CPT/HCPCS: 11042; 97597 ==

== ENCOUNTER → 2022-09-25 15:52 | Outpatient (BNVA) | payer MEDICARE, MEDICAID, SELFPAY | PROVIDERS: Visit Provider Thoracic Surgery (Cardiothoracic Vascular Surgery) | DX: I96 Gangrene, not elsewhere classified (principal); L89.892 Pressure ulcer of other site, stage 2; Z09 Encounter for follow-up examination after completed treatment for conditions other than malignant neoplasm | CPT/HCPCS: 97597; A6252 ==

== ENCOUNTER → 2022-10-02 15:45 | Outpatient (BNVA) | payer MEDICARE, MEDICAID, SELFPAY | PROVIDERS: Visit Provider Thoracic Surgery (Cardiothoracic Vascular Surgery) | DX: I96 Gangrene, not elsewhere classified (principal); L89.892 Pressure ulcer of other site, stage 2 | CPT/HCPCS: 97597 ==

== ENCOUNTER → 2022-10-16 15:31 | Outpatient (BNVA) | payer MEDICARE, MEDICAID, SELFPAY | PROVIDERS: Visit Provider Thoracic Surgery (Cardiothoracic Vascular Surgery) | DX: I96 Gangrene, not elsewhere classified (principal); L89.892 Pressure ulcer of other site, stage 2 | CPT/HCPCS: 11042; 97597 ==

== ENCOUNTER → 2022-10-23 16:06 | Outpatient (BNVA) | payer MEDICARE, MEDICAID, SELFPAY | PROVIDERS: Visit Provider Thoracic Surgery (Cardiothoracic Vascular Surgery) | DX: I96 Gangrene, not elsewhere classified (principal); L89.892 Pressure ulcer of other site, stage 2 | CPT/HCPCS: 97597 ==

== ENCOUNTER → 2022-10-30 15:55 | Outpatient (BNVA) | payer MEDICARE, MEDICAID, SELFPAY | PROVIDERS: Visit Provider Thoracic Surgery (Cardiothoracic Vascular Surgery) | DX: I96 Gangrene, not elsewhere classified (principal); L89.892 Pressure ulcer of other site, stage 2 | CPT/HCPCS: 11042; 97597; A6251 ==

== ENCOUNTER → 2022-11-17 13:54 | Outpatient (BNVA) | payer MEDICARE, MEDICAID, SELFPAY | PROVIDERS: Visit Provider Nurse Practitioner Family | DX: I96 Gangrene, not elsewhere classified (principal); L89.892 Pressure ulcer of other site, stage 2; I87.2 Venous insufficiency (chronic) (peripheral); L97.812 Non-pressure chronic ulcer of other part of right lower leg with fat layer exposed; Z09 Encounter for follow-up examination after completed treatment for conditions other than malignant neoplasm | CPT/HCPCS: 97597; A6251 ==

== ENCOUNTER → 2022-11-24 10:44 | Outpatient (BNVA) | payer MEDICARE, MEDICAID, SELFPAY | PROVIDERS: Visit Provider Nurse Practitioner Family | DX: L89.892 Pressure ulcer of other site, stage 2 (principal); Z09 Encounter for follow-up examination after completed treatment for conditions other than malignant neoplasm | CPT/HCPCS: 97597 ==

== ENCOUNTER → 2023-04-14 12:56 | Outpatient (BNVA) | payer MEDICARE, MEDICAID, SELFPAY | PROVIDERS: Visit Provider Thoracic Surgery (Cardiothoracic Vascular Surgery) | DX: I96 Gangrene, not elsewhere classified (principal); L89.892 Pressure ulcer of other site, stage 2 | CPT/HCPCS: 29581; 97597; 97598; 99213 ==

== ENCOUNTER → 2023-04-16 15:36 | Outpatient (BNVA) | payer MEDICARE, MEDICAID, SELFPAY | PROVIDERS: Visit Provider Thoracic Surgery (Cardiothoracic Vascular Surgery) | DX: I96 Gangrene, not elsewhere classified (principal); L89.892 Pressure ulcer of other site, stage 2 | CPT/HCPCS: 29581; A6252; A6253 ==

== ENCOUNTER → 2023-04-21 10:24 | Outpatient (BNVA) | payer MEDICARE, MEDICAID, SELFPAY | PROVIDERS: Visit Provider Thoracic Surgery (Cardiothoracic Vascular Surgery) | DX: I96 Gangrene, not elsewhere classified (principal); L89.892 Pressure ulcer of other site, stage 2 | CPT/HCPCS: 97597; 97598; A6251; A6252 ==

== ENCOUNTER → 2023-04-28 13:48 | Outpatient (BNVA) | payer MEDICARE, MEDICAID, SELFPAY | PROVIDERS: Visit Provider Thoracic Surgery (Cardiothoracic Vascular Surgery) | DX: I96 Gangrene, not elsewhere classified (principal); L89.892 Pressure ulcer of other site, stage 2 | CPT/HCPCS: 97597; 97598; A6253 ==

== ENCOUNTER → 2023-05-05 13:04 | Outpatient (BNVA) | payer MEDICARE, MEDICAID, SELFPAY | PROVIDERS: Visit Provider Nurse Practitioner Family | DX: I96 Gangrene, not elsewhere classified (principal); L89.892 Pressure ulcer of other site, stage 2 | CPT/HCPCS: 97597; 97598; A6210; A6252 ==

== ENCOUNTER → 2023-05-12 14:06 | Outpatient (BNVA) | payer MEDICARE, MEDICAID, SELFPAY | PROVIDERS: Visit Provider Thoracic Surgery (Cardiothoracic Vascular Surgery) | DX: I96 Gangrene, not elsewhere classified (principal); L89.892 Pressure ulcer of other site, stage 2; Z09 Encounter for follow-up examination after completed treatment for conditions other than malignant neoplasm | CPT/HCPCS: 97597 ==

== ENCOUNTER → 2023-05-26 13:47 | Outpatient (BNVA) | payer MEDICARE, MEDICAID, SELFPAY | PROVIDERS: Visit Provider Thoracic Surgery (Cardiothoracic Vascular Surgery) | DX: L89.892 Pressure ulcer of other site, stage 2 (principal) | CPT/HCPCS: 97597 ==

== ENCOUNTER → 2023-06-02 13:27 | Outpatient (BNVA) | payer MEDICARE, MEDICAID, SELFPAY | PROVIDERS: Visit Provider Thoracic Surgery (Cardiothoracic Vascular Surgery) | DX: L89.892 Pressure ulcer of other site, stage 2 (principal) | CPT/HCPCS: 97597 ==

== ENCOUNTER → 2023-06-09 14:23 | Outpatient (BNVA) | payer MEDICARE, MEDICAID, SELFPAY | PROVIDERS: Visit Provider Nurse Practitioner Family | DX: Z09 Encounter for follow-up examination after completed treatment for conditions other than malignant neoplasm (principal); Z87.2 Personal history of diseases of the skin and subcutaneous tissue | CPT/HCPCS: 99212 ==

== ENCOUNTER 2023-08-18 06:00 | Outpatient (RCR) | payer MEDICARE, MEDICAID, SELFPAY | END 2023-09-15 23:59 | disposition home or self-care (01) | LOC: MOT 06:00 | PROVIDERS: Visit Provider Family Medicine | DX: I73.9 Peripheral vascular disease, unspecified (principal); Z99.3 Dependence on wheelchair; R60.0 Localized edema | CPT/HCPCS: 97110; 97140; 97167 ==

== ENCOUNTER 2023-09-16 06:00 | Outpatient (RCR) | payer MEDICARE, MEDICAID, SELFPAY | END 2023-10-14 23:59 | disposition home or self-care (01) | LOC: MOT 06:00 | PROVIDERS: Visit Provider Family Medicine | DX: I73.9 Peripheral vascular disease, unspecified (principal) | CPT/HCPCS: 97140 ==

== ENCOUNTER 2023-10-13 06:00 | Outpatient (RCR) | payer MEDICARE, MEDICAID, SELFPAY | END 2023-10-14 23:59 | disposition home or self-care (01) | LOC: SPT 06:00 | PROVIDERS: Visit Provider Family Medicine | DX: I89.0 Lymphedema, not elsewhere classified (principal) | CPT/HCPCS: 29581; 97140; 97161 ==

== ENCOUNTER 2023-10-15 06:00 | Outpatient (RCR) | payer MEDICARE, MEDICAID, SELFPAY | END 2023-11-14 23:59 | disposition home or self-care (01) | LOC: SPT 06:00 | PROVIDERS: Visit Provider Family Medicine | DX: I89.0 Lymphedema, not elsewhere classified (principal) | CPT/HCPCS: 29581; 97140 ==

== ENCOUNTER 2023-11-05 06:00 | Outpatient (RCR) | payer MEDICARE, MEDICAID, SELFPAY | END 2023-11-14 23:59 | disposition home or self-care (01) | LOC: MPT 06:00 | PROVIDERS: Visit Provider Family Medicine | DX: Z98.1 Arthrodesis status (principal) | CPT/HCPCS: 97110; 97162 ==

== ENCOUNTER 2023-11-15 06:00 | Outpatient (RCR) | payer MEDICARE, MEDICAID, SELFPAY | END 2023-12-14 23:59 | disposition home or self-care (01) | LOC: MPT 06:00 | PROVIDERS: Visit Provider Family Medicine | DX: Z98.1 Arthrodesis status (principal) | CPT/HCPCS: 97110 ==

== ENCOUNTER 2023-12-15 06:00 | Outpatient (RCR) | payer MEDICARE, MEDICAID, SELFPAY | END 2024-01-14 23:59 | disposition home or self-care (01) | LOC: MPT 06:00 | PROVIDERS: Visit Provider Family Medicine | DX: Z98.1 Arthrodesis status (principal) | CPT/HCPCS: 97110; 97116; 97530 ==

== ENCOUNTER 2024-01-15 06:00 | Outpatient (RCR) | payer MEDICARE, MEDICAID, SELFPAY | END 2024-02-13 23:59 | disposition home or self-care (01) | LOC: MPT 06:00 | PROVIDERS: Visit Provider Family Medicine | DX: Z98.890 Other specified postprocedural states (principal) | CPT/HCPCS: 97110; 97112; 97116; 97530 ==

== ENCOUNTER 2024-02-14 06:00 | Outpatient (RCR) | payer MEDICARE, MEDICAID, SELFPAY | END 2024-03-15 23:59 | disposition home or self-care (01) | LOC: MPT 06:00 | PROVIDERS: Visit Provider Family Medicine | DX: Z98.1 Arthrodesis status (principal) | CPT/HCPCS: 97110; 97116; 97530 ==

== ENCOUNTER 2024-03-16 06:00 | Outpatient (RCR) | payer MEDICARE, MEDICAID, SELFPAY | END 2024-04-15 23:59 | disposition home or self-care (01) | LOC: MPT 06:00 | PROVIDERS: Visit Provider Family Medicine | DX: Z98.1 Arthrodesis status (principal); M54.42 Lumbago with sciatica, left side; M54.41 Lumbago with sciatica, right side; G89.29 Other chronic pain; Z99.3 Dependence on wheelchair | CPT/HCPCS: 97110 ==

== ENCOUNTER 2024-04-16 06:00 | Outpatient (RCR) | payer MEDICARE, MEDICAID, SELFPAY | END 2024-05-15 23:59 | disposition home or self-care (01) | LOC: MPT 06:00 | PROVIDERS: Visit Provider Family Medicine | DX: M54.59 Other low back pain (principal); M62.81 Muscle weakness (generalized) | CPT/HCPCS: 97110; 97530 ==

== ENCOUNTER 2024-05-16 08:59 | Outpatient (RCR) | payer MEDICARE, MEDICAID, SELFPAY | END 2024-06-15 23:59 | disposition home or self-care (01) | LOC: MPT 08:59 | PROVIDERS: Visit Provider Family Medicine | DX: Z98.1 Arthrodesis status (principal) | CPT/HCPCS: 97110 ==

== ENCOUNTER 2024-06-16 06:30 | Outpatient (RCR) | payer MEDICARE, MEDICAID, SELFPAY | END 2024-07-15 23:59 | disposition home or self-care (01) | LOC: MPT 06:30 | PROVIDERS: Visit Provider Family Medicine | DX: M54.59 Other low back pain (principal); M62.81 Muscle weakness (generalized) | CPT/HCPCS: 97110; 97116 ==

== ENCOUNTER 2024-08-15 10:17 | Outpatient (RCR) | payer MEDICARE, MEDICAID, SELFPAY | END 2024-08-15 23:59 | disposition home or self-care (01) | LOC: MPT 10:17 | PROVIDERS: Visit Provider Family Medicine | DX: Z98.890 Other specified postprocedural states (principal) | CPT/HCPCS: 97110 ==

== ENCOUNTER 2024-11-01 03:38 | Emergency (ER) | payer MEDICARE, MEDICAID, SELFPAY ==
[2024-11-01 03:48] VITALS: BP 128/81; PULSE 81; RESP 18; TEMP 36.8; O2SAT 94; BMI 27.0
[2024-11-01 03:52] VITALS: BP 128/81; PULSE 75; RESP 20; O2SAT 94
--- NOTE | 2024-11-01 04:02 | W.ED.GENADLT ---
HPI - General Adult General: Chief complaint: General Medical Stated complaint: Stoke Like Symptoms Time Seen by Provider: 11/01/24 03:46 History of Present Illness: 69-year-old man with history of chronic pain syndrome some hydrocodone and tizanidine at home who presents emergency room with the complaint of a queer feeling in my neck . Unclear why decided to come the emergency room. After talking to briefly does not seem there is anything I can do to help so he decides he wants to go home. Related Data Home Medications ?Medication ?Instructions ?Recorded ?Confirmed apixaban 5 mg tablet (Eliquis) 5 mg PO BID 03/05/22 07/25/22 duloxetine 30 mg capsule,delayed 30 mg PO DAILY 03/05/22 07/25/22 release gabapentin 600 mg tablet 600 mg PO QID 03/05/22 07/25/22 levothyroxine 112 mcg tablet 112 mcg PO DAILY 03/05/22 07/25/22 tizanidine 4 mg tablet 4 mg PO BID PRN Muscle Spasm 03/05/22 07/25/22 hydrocodone 10 mg-acetaminophen 1 tab PO 6XD PRN Pain 07/25/22 07/25/22 325 mg tablet Previous Rx's ?Medication ?Instructions ?Recorded albuterol sulfate 90 mcg/actuation 2 inh inhalation Q8H PRN shortness 03/08/22 aerosol inhaler of breath or wheezing #8.5 grams fluticasone fur. 100 mcg-umeclid 1 inh inhalation DAILY #60 ea 03/08/22 62.5 mcg-vilant 25 mcg inhalat.powder (Trelegy Ellipta) furosemide 20 mg tablet (Lasix) 20 mg PO DAILY PRN edema #60 tabs 03/08/22 cyanocobalamin (vitamin B-12) 500 mcg (1/2 x 1,000 mcg) PO DAILY 07/29/22 1,000 mcg tablet (Vitamin B-12) #30 tabs tramadol 50 mg tablet 50 mg PO Q12H PRN pain #14 tabs 07/29/22 Allergies Allergy/AdvReac Type Severity Reaction Status Date / Time Penicillins Allergy Unknown Verified 11/01/24 03:52 Review of Systems Narrative: Constitutional symptoms: Negative except as documented in HPI. Skin symptoms: Negative except as documented in HPI. Eye symptoms: Negative except as documented in HPI. ENMT symptoms: Negative except as documented in HPI. Respiratory symptoms: Negative except as documented in HPI. Cardiovascular symptoms: Negative except as documented in HPI. Gastrointestinal symptoms: Negative except as documented in HPI. Genitourinary symptoms: Negative except as documented in HPI. Musculoskeletal symptoms: Negative except as documented in HPI. Neurologic symptoms: Negative except as documented in HPI. Psychiatric symptoms: Negative except as documented in HPI. Endocrine symptoms: Negative except as documented in HPI. [facility] ED PFSH: Medical History (Updated 11/01/24 @ 03:57 by Adrianne Michelle MD) Back pain Wheelchair bound Pulmonary embolism DVT (deep venous thrombosis) Hypothyroidism Atrial fibrillation Cellulitis Pneumonia Surgical History History of tonsillectomy H/O cervical spine surgery Social History Smoking and tobacco/nicotine status: never used tobacco/nicotine Alcohol intake: never Substance/Drug Use: never Physical Exam Narrative: EXAM NARRATIVE: General: Alert, no acute distress. Skin: warm and dry Head: Normocephalic Neck: Trachea midline Eye: Extraocular movements are intact. Ears, nose, mouth and throat: Oral mucosa moist Respiratory: Respirations are non-labored Musculoskeletal: Normal ROM Neurological: Alert and oriented, No focal neurological deficit observed. Psychiatric: Cooperative, appropriate mood & affect. Course Vital Signs: Vital signs: Vital Signs Temperature 98.2 F 11/01/24 03:48 Pulse Rate 75 11/01/24 03:52 Respiratory Rate 20 H 11/01/24 03:52 Blood Pressure 128/81 11/01/24 03:52 Pulse Oximetry 94 11/01/24 03:52 Oxygen Delivery Me thod Room Air 11/01/24 03:48 MDM - General Adult Medical Decision Making Assessment and plan: Neck discomfort Chronic pain syndrome - Discharged home - Discussed plan with patient. Answered any questions. - Evaluation and treatment of this problem were appropriate in the emergency setting. All radiology interpretation(s) finalized by discharge Discharge Plan Discharge Patient Disposition: Home Clinical Impression: Neck discomfort Condition: Stable Prescriptions: No Action gabapentin 600 mg Tablet 600 mg PO QID tizanidine 4 mg Tablet 4 mg PO BID PRN (Reason: Muscle Spasm) levothyroxine 112 mcg Tablet 112 mcg PO DAILY duloxetine 30 mg Capsule,Delayed Release(Dr/Ec) 30 mg PO DAILY Eliquis 5 mg Tablet 5 mg PO BID albuterol sulfate 90 mcg/actuation HFA aerosol inhaler 2 inh inhalation Q8H PRN (Reason: shortness of breath or wheezing) Qty: 8.5 3RF Trelegy Ellipta 100-62.5-25 mcg blister with device 1 inh inhalation DAILY Qty: 60 3RF furosemide [Lasix] 20 mg tablet 20 mg PO DAILY MDD 40mg PRN (Reason: edema) Qty: 60 3RF hydrocodone-acetaminophen 10-325 mg Tablet 1 tab PO 6XD PRN (Reason: Pain) Vitamin B-12 1,000 mcg Tablet 500 mcg PO DAILY Qty: 30 0RF tramadol 50 mg tablet 50 mg PO Q12H PRN (Reason: pain) Qty: 14 0RF Discharge Orders: Discharge ED (Routine); Ordered 11/01/24 Ordered By: Adrianne Michelle Referrals: Alberto Richey DO [Primary Care Provider] - Discharge Diet: Usual diet Discharge Activity: Increase activity as tolerated Patient Instructions: Opioid Safety, Pain Management Print Language: Tongan Coding Level of Care Code ED Financial Consultant for Shailesh Ewing
[2024-11-01 04:21] VITALS: BP 117/71; PULSE 66; O2SAT 95
== END 2024-11-01 04:24 | disposition home or self-care (01) ==
PROVIDERS: Emergency Provider Emergency Medicine; PCP Family Medicine
DX: M54.2 Cervicalgia (principal); Z79.01 Long term (current) use of anticoagulants
CPT/HCPCS: 99281

== ENCOUNTER 2025-03-22 18:33 | Emergency (ER) | payer MEDICARE, MEDICAID, SELFPAY ==
[2025-03-22] VITALS (20 sets, daily range): BP systolic 82–138; BP diastolic 53–97; PULSE 62–109; RESP 18–22; TEMP 36.4; O2SAT 91–97
--- OUTSIDE RECORDS SUMMARY | 2025-03-22 18:44 | XMS_ITS | Clinical Summary ---
Author Organization [facility] Address [address] [facility] [place] [address] Phone Care Team Providers Care Die Maker Apprentice Name Role Phone ZoeyAlberto pardo Primary Care Provider [phone] Allergies Active Allergy Reactions Criticality Noted Date Comments Penicillins Unknown 12/28/2022 Medications albuterol sulfate HFA 90 mcg/actuation aerosol inhalerIndications :Panlobular emphysema (CMS/HCC) INHALE 2 PUFFS BY MOUTH EVERY 6 HOURS NEEDED FOR SHORTNESS OF BREATH OR WHEEZING 9 Gram 05/15/20 24 Active tiZANidine (ZANAFLEX) 4 mg Tablet Take 1 Tablet (4 mg) by mouth every 6 hours as needed for Other (See Comment) (As PRN.). 120 Tablet 5 11/07/19 25 Active nitroglycerin (NITROSTAT) 0.4 mg Tablet, Sublingual Place 1 Tablet (0.4 mg) under tongue every 5 minutes as needed for Chest Pain (Not to exceed 3 doses, notify physician if chest pain not relieved, hold if systolic BP less than or equal to 90 mmHg). 12/07/19 25 Active baclofen (LIORESAL) 10 mg tablet Take 10 mg by mouth 2 times daily. Active oxyCODONE-acetamin ophen (PERCOCET) 10-325 mg TabletIndications: Chronic bilateral low back pain with bilateral sciatica,S/P laminectomy with spinal fusion Take 1 Tablet by mouth every 12 hours as needed for Pain, Severe. Take 1 tablet by mouth every 12 hours as needed. Max Daily Amount: 2 Tablets 60 Tablet 01/22/20 25 Active Additional Information Patient not taking.Reported on 02/20/2025 midodrine (PROAMATINE) [address]: [address] elevation myocardial infarction involving left anterior descending (LAD) coronary artery (CMS/HCC) Take 2 Tablets (10 mg) by mouth every 8 hours. 180 Tablet 1 01/22/20 25 Active amiodarone (CORDARONE) 200 mg tabletIndications: Ventricular fibrillation (CMS/HCC),ST elevation myocardial infarction involving left anterior descending (LAD) coronary artery (CMS/HCC) Take 1 Tablet (200 mg) by mouth daily. 90 Tablet 3 01/20/20 25 Active clopidogreL (PLAVIX) 75 mg TabletIndications: Hx of acute myocardial infarction Take 1 Tablet (75 mg) by mouth daily. 90 Tablet 3 01/20/20 25 Active empagliflozin (JARDIANCE) 10 mg tabletIndications: Chronic combined systolic and diastolic CHF, NYHA class 2 (CMS/HCC) Take 1 Tablet (10 mg) by mouth daily in the morning. 90 Tablet 3 01/20/20 25 Active apixaban (Eliquis) 5 mg tabletIndications: Ventricular fibrillation (CMS/HCC),Peripher al vascular disease of lower extremity with ulceration (CMS/HCC),ST elevation myocardial infarction involving left anterior descending (LAD) coronary artery (CMS/HCC) Take 1 tablet by mouth twice daily 180 Tablet 3 01/24/20 25 Active levothyroxine 150 mcg tabletIndications: Acquired hypothyroidism Take 1 Tablet (150 mcg) by mouth daily. 100 Tablet 1 02/06/20 25 Active gabapentin (NEURONTIN) 300 mg capsuleIndications :Chronic bilateral low back pain with bilateral sciatica,S/P laminectomy with spinal fusion Take 1 Capsule (300 mg) by mouth 2 times daily. 60 Capsule 5 02/06/20 25 Active methenamine hippurate (HIPREX) 1 gram Tablet Take 1 Tablet (1,000 mg) by mouth 2 times daily. 180 Tablet 3 02/10/20 25 Active furosemide (LASIX) 80 mg tablet Take 1 Tablet (80 mg) by mouth 1 time daily as needed for Other (See Comment) (Swelling). 30 Tablet 2 02/21/20 25 Active atorvastatin (LIPITOR) 40 mg tablet Take 1 Tablet (40 mg) by mouth daily. 100 Tablet 1 02/21/20 Active Active Problems Problem Noted Date Diagnosed Date Pressure injury of left heel, stage 1 01/11/2025 Venous stasis ulcer of right calf limited to breakdown of skin with varicose veins 01/11/2025 intermediate (current) use of anticoagulants 2024 ferry terminal agent current use of diuretic 01/11/2025 Chronic combined systolic and diastolic CHF, [facility] A class 2 12/16/2024 Moderate protein malnutrition 12/15/2024 Physical deconditioning 12/06/2024 Pressure injury of sacral region, stage 1 2024 Lymphedema of both lower extremities 12/06/2024 Nonrheumatic aortic valve insufficiency 11/30/19 S/P coronary artery stent placement 11/29/2024 Ischemic cardiomyopathy 11/29/2024 PVC (premature ventricular contraction) 11/29/19 NSVT (nonsustained ventricular tachycardia) 11/14 Ventricular fibrillation 11/23/2024 Chronic obstructive pulmonary disease 11/23/2024 Therapeutic opioid-induced constipation (OIC) Vasculogenic erectile dysfunction 01/21/2024 Panlobular emphysema 07/24/2023 Atherosclerosis of lower sioux co ronary artery of lower sioux heart without angina pectoris 07/22/2023 Thoracic aortic aneurysm without rupture 023 Pulmonary nodule, right 07/22/2023 Essential hypertension 07/05/2023 Deaf, right 07/05/2023 Hypothyroidism 07/05/2023 Chronic bilateral low back pain 07/05/2023 Venous insufficiency of both lower extremities 1 09/04/2022 Wheelchair dependent 07/05/2023 Poor mobility 07/05/2023 S/P laminectomy with spinal fusion 07/05/2023 Overview (07/05/2023): Cervical Tobacco use 07/05/2023 H/O blood clots 12/28/2022 Resolved Problems Problem Noted Date Diagnosed Date Resolved Date Acute on chronic systolic an d diastolic heart failure, NYHA class 3 12/12/2024 02/20/2025 Acute on chronic combined sy stolic and diastolic CHF (congestive heart failure) 12/11/2024 02/20/2025 Severe sepsis with septic shock 11/25/2024 02/20/2025 Elevated LFTs 11/24/2024 03/07/2025 Acute cystitis with hematuria 11/24/2024 03/07/2025 ACS (acute coronary syndrome) 11/24/2024 02/20/2025 STEMI (ST elevation myocardial infarction) 11/23/2024 02/20/2025 Cardiogenic shock 11/23/2024 03/07/2025 Cardiac arrest with ventricular fibrillation 03/07/2025 Acute metabolic encephalopathy 11/23/2024 03/07/2025 Encounters Date Type Department Care Team Description 03/13/2025 External Device Data STL ABSTRACTION Provider, Abstract 02/20/2025 1:20 PM CDT Office Visit [address] [phone] Amrita Hu FNP Chronic combined systolic and diastolic CHF, NYHA class 2 (CMS/HCC) (Primary Dx); Peripheral vascular disease of lower extremity with ulceration (CMS/HCC); Venous stasis ulcer of right calf limited to breakdown of skin with varicose veins (CMS/HCC); Essential hypertension; Pressure injury of left heel, stage 1; Lymphedema of both lower extremities; Moderate protein malnutrition; Physical deconditioning; Wheelchair dependent; Atherosclerosis of lower si[place] coronary artery of lower sioux heart without angina pectoris; Panlobular emphysema (CMS/HCC); Chronic bronchitis, unspecified chronic bronchitis type (CMS/HCC); Ischemic cardiomyopathy; S/P coronary artery stent placement; intermediate current use of diuretic; ferry terminal agent current use of anticoagulant 02/20/2025 External Device Data STL ABSTRACTION Provider, Abstract 02/14/[address] [address] Gallito Richey MD 02/09/2025 3:00 PM CDT Office Visit [facility] [address] [phone] Gallito Daniels NP Acute cystitis with hematuria (Primary Dx) 02/06/2025 External Device Data STL ABSTRACTION Provider, Abstract 02/05/[address] [address] Alberto Richey DO Question 02/05/[address] [address] Alberto Richey DO Acquired hypothyroidism 02/05/[address] [address] Belle Valentin FNP Needs Appointment 01/24/2025 Results Follow-Up [facility] [address] [place] [address] Amrita Hu FNP BASIC METABOLIC PANEL 01/23/2025 9:00 AM CDT Procedure visit [address] [address] 01/23/[address] [address] Alberto Richey DO Medication Review; Patient Communication 01/22/[address] [address] Alberto Richey DO Ventricular fibrillation (CMS/HCC) (Primary Dx); Peripheral vascular disease of lower extremity with ulceration (CMS/HCC); ST elevation myocardial infarction involving left anterior descending (LAD) coronary artery (CMS/HCC) 01/17/[address] [address] Alberto Richey DO Medication Question; Medication Assistance 01/17/2025 External Device Data STL ABSTRACTION Provider, Abstract 01/16/2025 External Device Data STL ABSTRACTION Provider, Abstract 01/15/[address] [address] Alberto Richey DO 01/14/2025 Results Follow-Up [address] [address] Amrita Hu FNP TSH, COMPREHENSIVE METABOLIC PANEL, CBC WITH DIFFERENTIAL 01/14/2025 Orders Only [address] [address] Amrita Hu FNP Hypokalemia (Primary Dx); Chronic combined systolic and diastolic CHF, NYHA class 2 (CMS/HCC) 01/11/2025 1:00 PM CDT Office Visit [address] [address] Amrita Hu FNP Chronic combined systolic and diastolic CHF, NYHA class 2 (CMS/HCC) (Primary Dx); S/P coronary artery stent placement; Ischemic cardiomyopathy; Essential hypertension; Pressure injury of left heel, stage 1; Venous stasis ulcer of right calf limited to breakdown of skin with varicose veins (CMS/HCC); Acquired hypothyroidism; Lymphedema of both lower extremities; Physical deconditioning; Panlobular emphysema (CMS/HCC); intermediate current use of diuretic; ferry terminal agent (current) use of anticoagulants 01/09/2025 External Device Data STL ABSTRACTION Provider, Abstract 01/09/2025 Orders Only [facility] Health Information Management [place] [address] [place] [address] Provider, Abstract 01/09/[address] [address] Raegan Nuñez FNP Request Medical Records; Provider Call 01/04/2025 Group Home Visit [facility] Acute Care [facility] [address] [place] [address] Slim Bose MD Generalized muscle weakness (Primary Dx); Chronic combined systolic and diastolic congestive heart failure (CMS/HCC); Panlobular emphysema (CMS/HCC) 12/28/2024 Refill [facility] Post Acute Care [facility] [address] [place] [address] Slim Bose MD Chronic bilateral low back pain with bilateral sciatica 12/28/2024 Group Home Visit [facility] Post Acute Care [facility] [address] [place] [phone] Slim Bose MD Generalized muscle weakness (Primary Dx); Chronic combined systolic and diastolic congestive heart failure (CMS/HCC); Panlobular emphysema (CMS/HCC) 12/26/2024 Telephone [facility] Post Acute Care [facility] [address] [place] [phone] Slim Bose MD Medication Refill 12/25/2024 Telephone [facility] Urology- [place] [address] Entrance [address], 3rd [place] [address] Provider, Abstract urology referral appointment 12/25/2024 Group Home Visit [facility] Post Acute Care [facility] [address] [place] [phone] Divina Morrow FNP Generalized muscle weakness (Primary Dx); Chronic combined systolic and diastolic congestive heart failure (CMS/HCC); Ventricular fibrillation (CMS/HCC); Cardiac arrest with ventricular fibrillation (CMS/HCC) 12/21/2024 Group Home Visit [facility] Post Acute Care [facility] [address] [place] [address] Slim Bose MD Generalized muscle weakness (Primary Dx); Chronic combined systolic and diastolic congestive heart failure (CMS/HCC); Ventricular fibrillation (CMS/HCC) 12/21/2024 Refill [facility] Post Acute Care [facility] [address] [place] [phone] Slim Bose MD Chronic bilateral low back pain with bilateral sciatica (Primary Dx); S/P laminectomy with spinal fusion from Last 3 Months Immunizations Immunization Administration Dates Next Due PNEUMOVAX (PPSV23) pneumococ homer polysaccharide 23-valent Vaccine 05/17/2021 Family History Medical History Relation Name Comments Heart Disease Father Preet Newberry No Known Problems Sister Relation Name Status Comments Father Preet Newberry Mother Sister Alive Social History Tobacco Use Types Packs/Day Years Used Date Smoking Tobacco: Every Day Cigarettes 0.5 50 Smokeless Tobacco: Never Tobacco Cessation:Ready to Q uit: Not Asked; Counseling Given: Not Answered Alcohol Use Standard Drinks/Week Comments Not Currently 0 (1 standard drink = 0.6 oz pur e alcohol) Sex and Gender Information Value Date Recorded Sex Assigned at Male 06/07/2024 10:10 AM CDT Legal Sex Male 2:07 PM CDT Gender Identity Male 06/07/2024 10:10 AM CDT Sexual Orientation Straight 06/07/2024 10 :10 AM CDT Last Filed Vital Signs Vital Sign Reading Time Taken Comments Blood Pressure 101/63 02/20/2025 1:38 PM CDT Pulse 81 02/20/2025 1:38 PM CDT Temperature 36.9 C (98.5 F) 02/20/2025 1:38 PM CDT Respiratory Rate 20 01/11/2025 1:54 PM CDT Oxygen Saturation 93% 02/20/2025 1:38 PM CDT Inhaled Oxygen Concentration - - Weight 88.3 kg (194 lb 9.6 oz) 02/20/2025 1:38 P M CDT Height 185.4 cm (6' 1 ) 02/20/2025 1:38 PM CDT Body Mass Index 25.67 02/20/2025 1:38 PM CDT Plan of Treatment Upcoming Encounters Date Type Department Care Team (Late st Contact Info) Description 04/03/2025 9:30 AM CDT Appointment [facility] Ultrasound [address] [place] [address] Gallito Daniels NP [address] [place] [address] 05/01/2025 2:40 PM CDT Office Visit [facility] [address] [place] [address] Aniyah Gonzalez NP [address] [place] [address] 05/09/2025 2:40 PM CDT Office Visit [facility] [address] [place] [address] Zoeyedvin AlbertoDO [address] [place] [phone] 05/15/2025 3:30 PM CDT Office Visit [facility] [place] [address] [place] [address] Gallito Daniels NP [address] [place] [address] Health Maintenance Due Date Last Done Comments DTAP/TDAP/TD VACCINES (1 - Tdap) 1973 COLORECTAL SCREENING 1999 FIT/FOBT Q 1 year 1999 Flex Sig/CT Colonography Q 5 years 1999 ZOSTER VACCINE (1 of 2) 02/24/2004 RSV VACCINE (60+ or ) (1 - Risk 60-74 years 1-dose series) 2014 Lung Cancer Screening 07/19/2024 07/19/2023 Medicare [place] ([place]) Preventative Visit/Annual Wellness Visit 08/16/2024 04/26/2024 INFLUENZA VACCINE (#1) 2025 , 07/05/2023 PNEUMOCOCCAL VACCINE 50+ YEARS (2 of 2 - PCV) 11/17/2025 05/17/2021 Postponed from 09/2021 (Patient Refused) Colorectal Cancer Screening 02/02/2026 FIT-DNA Q 3 years 02/02/2026 02/02/2023 Abdominal Aortic Aneurysm (AAA) Screening Completed 07/15/2023 Goals Goal Patient Goal Type Associated Problems Recent Progress Patient-Stated? Author Heart Failure Goal Care Plan Heart Failure Problem No Esme Nettles Medical Devices Implanted Type Area Chuck Boner Device Identifier Shelf Expiration Date Model / Serial / Lot Closure Perclose Prostyle Sut Mediate [id number] - [id number] Implanted:Qty: 1 on 11/23/2024 by Krissy Shuttle Spotter () MD [facility] Closure Device Right: Groin GAGE- VASC DEVICE [id number] 10/13/2026 [id number] / / [id number] Stent Marky Saunders Neto [id number] Rx [id number] - [id number] Implanted:Qty: 1 on 11/23/2024 by Krissy Shuttle Spotter () MD [facility] at [facility] Stent N/A: Coronary [employer] [id number] 07/03/2027 [id number] / / [id number] Procedures Procedure Name Priority Date/Time Associated Diagnosis Comments POC URINALYSIS MICROSCOPY ONLY Routine 02/09/2025 4:11 PM CDT Acute cystitis with hematuria POC URINALYSIS DIPSTICK AUTOMATED Routine 02/09/2025 4:11 PM CDT Acute cystitis with hematuria BASIC METABOLIC PANEL Routine 01/23/2025 11:09 AM CDT Chronic combined systolic and diastolic CHF, NYHA class 2 (CMS/HCC) Hypokalemia CBC WITH DIFFERENTIAL Routine 01/11/2025 2:52 PM CDT Essential hypertension Acquired hypothyroidism Chronic combined systolic and diastolic CHF, NYHA class 2 (CMS/HCC) COMPREHENSIVE METABOLIC PANEL Routine 01/11/2025 2:52 PM CDT Essential hypertension Acquired hypothyroidism Chronic combined systolic and diastolic CHF, NYHA class 2 (CMS/HCC) TSH Routine 01/11/2025 2:52 PM CDT Acquired hypothyroidism BASIC METABOLIC PANEL Routine 01/05/2025 11:47 AM CDT BASIC METABOLIC PANEL Routine 12/29/2024 11:46 AM CDT BASIC METABOLIC PANEL Routine 12/22/2024 11:[address] LUNG SCREENING (LDCT BASELINE OR ANNUAL) Routine 07/19/2023 2:48 PM FURNACE STOCK INSPECTOR Tobacco use Personal history of nicotine dependence US AORTA Routine 07/15/2023 4:09 PM FURNACE STOCK INSPECTOR Tobacco use Personal history of nicotine dependence COLON CANCER SCREEN, STOOL DNA Routine 02/02/2023 11:45 PM CDT Encounter for colorectal cancer screening from Last 3 Months or Most Recently Relevant to Health Maintenance Results * (ABNORMAL) POC URINALYSIS DIPSTICK AUTOMATED (02/09/2025 4:11 PM CDT) COLOR UA POC Yellow Pale to Dark Yellow [facility] CL[facility]ITY UA POC Clear Clear, Other [facility] [place] GLUCOSE UA POC Negative Negative, Normal [facility] BILIRUBIN UA POC Negative Negative [facility] KETONES UA POC Negative Negative [facility] SPECIFIC GRAVITY UA POC 1.015 1.000 - 1.030 [facility] [place] BLOOD UA POC Negative Negative [facility] PH UA POC 7.0 5.0 - 8.0 [facility] IC UROLOGY [place] PROTEIN UA POC Negative Negative [facility] C[facility] [place] UROBILINOGEN UA POC 0.2 <2.0 mg/dL [facility] NITRITE [facility] POC Negative Negative [facility] LEUKOCYTE ESTERASE UA POC Trace(A) Negative [facility] UROLOGY [facility] K[facility] LOT NUMBER POC [phone] [facility] [place] KIT EXP DATE POC 12.13.25 [facility] UROLOGY [place] Urine 02/09/2025 4:11 PM CDT us Gallito Daniels NP POINT OF CARE TESTING Final Result [facility] [place] CLIA# [id number] [address] [place] [address], * POC URINALYSIS MICROSCOPY ONLY (02/09/2025 4:11 PM CDT) WBC UA POC 0-2 0 - 2 /hpf [facility] RBC UA POC 0-2 0 - 2 /hpf [facility] BACTERIA UA POC Negative Negative /hpf [facility] [place] YEAST POC [facility] [place] TRICHOMONAS POC [facility] SPERMATOZOA POC [facility] UROLOGY [facility] HYALINE CAST POC [facility] [place] RBC CAST POC [facility] GRANULAR CAST POC [facility] AMORPHOUS CRYSTAL POC [facility] TRIPLE PHOS POC [facility] URIC ACID CRYSTAL POC [facility] CALCIUM OXALATE, URINE POC [facility] COMMENT, URINE POC [facility] EPITHELIAL CELLS UA POC [facility] Urine 02/09/2025 4:11 PM CDT Gallito Daniels NP POINT OF CARE TESTING Final Result [facility] CLIA# [id number] [address] [place] [address], * BASIC METABOLIC PANEL (01/23/2025 11:09 AM CDT) Only the most recent of4 resultswithin the time period is included. Pathologist [facility] GLUCOSE 92 65 - 99 mg/dL [facility] Comment: Fasting reference interval BUN 19 7 - 25 mg/dL [facility] CREATININE 1.22 0.70 - 1.28 mg/dL [facility] GFR 64 > OR = 60 mL/min/1.7 3m2 [facility] BUN/CREAT RATIO SEE NOTE: 6 - 22 (calc) [facility] Comment: Not Reported: BUN and Creatinine are within reference range. SODIUM 144 135 - 146 mmol/L [facility] POTASSIUM 3.7 3.5 - 5.3 mmol/L [facility] CHLORIDE 110 98 - 110 mmol/L [facility] CO2 25 20 - 32 mmol/L [facility] CALCIUM 8.9 8.6 - 10.3 mg/dL [facility] Comment: Test Performed at: [facility] [address] [facility] [place] [address] Cameron Mcmillan MD Blood 01/23/2025 11:0 9 AM CDT 01/23/2025 11:09 AM CDT us Amrita Hu EQUAL OPPORTUNITY ASSISTANT CHEMISTRY ORDERABLES Final Res ult [facility] [phone] [facility] [address] [facility] [place] [address] * CBC WITH DIFFERENTIAL (01/11/2025 2:52 PM CDT) WBC 6.8 3.8 - 10.8 Thousand/u L [facility] RBC 4.47 4.20 - 5.80 Million/uL [facility] HEMOGLOBIN 13.8 13.2 - 17.1 g/dL [facility] HEMATOCRIT 42.2 38.5 - 50.0 % [facility] MCV 94.4 80.0 - 100.0 fL [facility] MCH 30.9 27.0 - 33.0 pg [facility] MCHC 32.7 32.0 - 36.0 g/dL [facility] Comment: For adults, a slight decrease in the calculated MCHC value (in the range of 30 to 32 g/dL) is most likely not clinically significant; however, it should be interpreted with caution in correlation with other red cell parameters and the patient's clinical condition. RDW 14.8 11.0 - 15.0 % [facility] PLATELETS 223 140 - 400 Thousand/u L [facility] MPV 11.4 7.5 - 12.5 fL [facility] NEUTROPHIL ABSOLUTE 4,488 1,500 - 7,800 cells/uL [facility] LYMPHOCYTE ABSOLUTE 1,374 850 - 3,900 cells/uL [facility] MONOCYTE ABSOLUTE 564 200 - 950 cells/uL [facility] EOSINOPHIL ABSOLUTE 286 15 - 500 cells/uL [facility] BASOPHILS ABSOLUTE 88 0 - 200 cells/uL [facility] NEUTROPHIL 66 % [facility] LYMPHOCYTES 20.2 % [facility] MONOCYTE 8.3 % [facility] EOSINOPHILS 4.2 % [facility] BASOPHILS 1.3 % [facility] Comment: Test Performed at: [facility] [address] [facility] Rashel Mcmillan MD Blood 01/11/2025 2:52 PM CDT 01/11/2025 2:52 PM CDT Amrita GILLETTEP HEMATOLOGY ORDERABLES Final Re sult Performing Organization Address City/[facility]/ZIP Co de Phone Number [facility] [phone] [facility] [employer] [address] [address] * TSH (01/11/2025 2:52 PM CDT) Pathologist [facility] TSH 0.91 0.40 - 4.50 mIU/L [facility] Comment: Test Performed at: [employer] [address] [facility] Blood 01/11/2025 2:52 PM CDT 01/11/2025 2:52 PM CDT Amrita Hu [facility] CHEMISTRY ORDERABLES Final Res ult [facility] [phone] [facility] [employer] [address] [address] * (ABNORMAL) COMPREHENSIVE METABOLIC PANEL (01/11/2025 2:52 PM CDT) Pathologist [facility] GLUCOSE 92 65 - 99 mg/dL [facility] Comment: Fasting reference interval BUN 17 7 - 25 mg/dL [facility] CREATININE 1.03 0.70 - 1.28 mg/dL [facility] GFR 78 > OR = 60 mL/min/1. 73m2 [facility] BUN/CREAT RATIO SEE NOTE: 6 - 22 (calc) [facility] Comment: Not Reported: BUN and Creatinine are within reference range. SODIUM 140 135 - 146 mmol/L [facility] POTASSIUM 3.2(L) 3.5 - 5.3 mmol/L [facility] CHLORIDE 104 98 - 110 mmol/L [facility] CO2 25 20 - 32 mmol/L [facility] CALCIUM 9.3 8.6 - 10.3 mg/dL [facility] TOTAL PROTEIN 6.8 6.1 - 8.1 g/dL [facility] ALBUMIN 4.0 3.6 - 5.1 g/dL [facility] GLOBULIN 2.8 1.9 - 3.7 g/dL (calc) [facility] ALBUMIN/GLOBULIN RATIO 1.4 1.0 - 2.5 (calc) [facility] BILIRUBIN TOTAL 0.9 0.2 - 1.2 mg/dL [facility] ALKALINE PHOSPHATASE 87 35 - 144 U/L [facility] AST 16 10 - 35 U/L [facility] ALT 14 9 - 46 U/L [facility] Comment: Test Performed at: [facility] [address] [address] Cameron Mcmillan MD Blood 01/11/2025 2:52 PM CDT 01/11/2025 2:52 PM CDT us Amrita GILLETTEP CHEMISTRY ORDERABLES Final Res ult [facility] [phone] [facility] [address] [address] * CT LUNG SCREENING (LDCT BASELINE OR ANNUAL) (07/19/2023 2:48 PM FURNACE STOCK INSPECTOR) Anatomical Region Laterality Modality Chest Computed Tomogra phy 07/19/2023 2:41 PM FURNACE STOCK INSPECTOR Impressions 07/19/2023 3:45 PM FURNACE STOCK INSPECTOR IMPRESSION: Please see below. Exam: CT LUNG SCREENING (LDCT BASELINE OR ANNUAL) Date/Time of Exam: 07/19/2023 2:48 PM Reason For Exam: Lung cancer screening, >= 20 pk-yr smoking history (Age >= 50y). Diagnosis: Tobacco use; Personal history of nicotine dependence. Technique: Low-dose CT of the chest was performed without the use of contrast. Comparison: None. FINDINGS: Evaluation of the vasculature is limited without the use of contrast. Thoracic Inlet: The thoracic inlet is within normal limits. Lymph Nodes: No pathologic axillary, mediastinal or hilar lymph nodes are identified given limitations of lack of contrast. Heart: The heart is normal in size. There are coronary artery and valvular calcifications. There is no pericardial effusion. Thoracic Aorta: There is aneurysmal dilatation of the thoracic aorta with the ascending segment measuring up to 4.8 cm in diameter. There is an aberrant right subclavian artery. Pulmonary Arteries: The pulmonary arteries are within normal limits. Upper Abdomen: There is no significant upper abdominal pathology. Subcutaneous Soft Tissues: There is gynecomastia. Bones: There is a mild likely chronic compression deformity involving T12. No suspicious lesions are identified. Tracheobronchial Tree: There is a small amount of tracheobronchial debris with the large central airways remaining widely patent. There is a mild degree of basilar predominant bronchial wall thickening. Lungs: There is a mild degree of emphysema. There is a mild degree of patchy linear scar versus atelectasis without focal consolidation. There is a small noncalcified nodule within the posteromedial aspect of the right lower lobe on image 131 of series 4 which has an average diameter of 0.3 cm. Pleura: There is no pleural effusion or pneumothorax. IMPRESSION: Lung-RADS 2S: BENIGN APPEARANCE OR BEHAVIOR. Nodules with a very low likelihood of becoming a clinically active cancer due to size or lack of growth. Continue annual screening with LDCT in 12 months. Other clinically significant or potentially clinically significant findings (non lung cancer). us Alberto Richey DO CT ORDERABLES Final Result * US AORTA (07/15/2023 4:09 PM FURNACE STOCK INSPECTOR) Anatomical Region Laterality Modality Abdomen Ultrasound 07/15/2023 4:09 PM FURNACE STOCK INSPECTOR Impressions 07/16/2023 1:58 PM FURNACE STOCK INSPECTOR IMPRESSION: Please see below. Exam: US AORTA Date/Time of Exam: 07/15/2023 4:09 PM Reason For Exam: See Diagnosis. Diagnosis: Tobacco use; Personal history of nicotine dependence. Comparison: None Findings: The proximal aorta is 2.64 cm AP by 2.7 cm transverse. The mid aorta is 2.2 cm AP by 2.2 cm transverse. The distal aorta is 2.0 cm AP by 2.1 cm transverse. The bilateral iliac arteries are obscured by overlying bowel gas. IMPRESSION: No significant aortic aneurysmal dilatation. Obscuration of the iliac artery secondary bowel gas. [id number] Narrative Procedure Note Lm Esparza MD - 07/16/2023 IMPRESSION: Please see below. Exam: US AORTA Date/Time of Exam: 07/15/2023 4:09 PM Reason For Exam: See Diagnosis. Diagnosis: Tobacco use; Personal history of nicotine dependence. Comparison: None Findings: The proximal aorta is 2.64 cm AP by 2.7 cm transverse. The mid aorta is 2.2 cm AP by 2.2 cm transverse. The distal aorta is 2.0 cm AP by 2.1 cm transverse. The bilateral iliac arteries are obscured by overlying bowel gas. IMPRESSION: No significant aortic aneurysmal dilatation. Obscuration of the iliac artery secondary bowel gas. [id number] Alberto Richey DO US ORDERABLES Final Result * COLON CANCER SCREEN, STOOL DNA (02/02/2023 11:45 PM CDT) COLOGUARD RESULT Negative Negative [facility] Comment: NEGATIVE TEST RESULT. A negative Cologuard result indicates a low likelihood that a colorectal cancer (CRC) or advanced adenoma (adenomatous polyps with more advanced pre-malignant features) is present. The chance that a person with a negative Cologuard test has a colorectal cancer is less than 1 in 1500 (negative predictive value >99.9%) or has an advanced adenoma is less than 5.3% (negative predictive value 94.7%). These data are based on a prospective cross-sectional study of 10,000 individuals at average risk for colorectal cancer who were screened with both Cologuard and colonoscopy. (Edu Armando al, N Engl J Med 2014;370(14):9620-1261) The normal value (reference range) for this assay is negative. COLOGUARD RE-SCREENING RECOMMENDATION: Periodic colorectal cancer screening is an important part of preventive healthcare for asymptomatic individuals at average risk for colorectal cancer. Following a negative Cologuard result, the [place] Cancer Society and U.S. Multi-Society Task Force screening guidelines recommend a Cologuard re-screening interval of 3 years. References: [place] [employer] Guideline for Colorectal Cancer Screening: https://www.cancer.org/cancer/mcxhw-edswsc-ucymov/hoeebxgds-wmdowjdmz-srjmooc/ac s-rec ommendations.html.; Tom DK, Marsha CR, Gardenia CazaresK, Colorectal Cancer Screening: Recommendations for Physicians and Patients from the U.S. Multi-Society Task Force on Colorectal Cancer Screening , Am J Gastroenterology 2017; 112:3505-1293. TEST DESCRIPTION: Composite algorithmic analysis of stool DNA-biomarkers with hemoglobin immunoassay. Quantitative values of individual biomarkers are not reportable and are not associated with individual biomarker result reference ranges. Cologuard is intended for colorectal cancer screening of adults of either sex, 45 years or older, who are at average-risk for colorectal cancer (CRC). Cologuard has been approved for use by the U.S. FDA. The performance of Cologuard was established in a cross sectional study of average-risk adults aged 50-84. Cologuard performance in patients ages 45 to 49 years was estimated by sub-group analysis of near-age groups. Colonoscopies performed for a positive result may find as the most clinically significant lesion: colorectal cancer [4.0%], advanced adenoma (including sessile serrated polyps greater than or equal to 1cm diameter) [20%] or non- advanced adenoma [31%]; or no colorectal neoplasia [45%]. These estimates are derived from a prospective cross-sectional screening study of 10,000 individuals at average risk for colorectal cancer who were screened with both Cologuard and colonoscopy. (Edu Armando al, N Engl J Med 2014;370(14):8351-5483.) Cologuard may produce a false negative or false positive result (no colorectal cancer or precancerous polyp present at colonoscopy follow up). A negative Cologuard test result does not guarantee the absence of CRC or advanced adenoma (pre-cancer). The current Cologuard screening interval is every 3 years. ([place] Cancer Society and U.S. Multi-Society Task Force). Cologuard performance data in a 10,000 patient pivotal study using colonoscopy as the reference method can be accessed at the following location: www.[employer].com/results. Additional description of the Cologuard test process, warnings and precautions can be found at [email or web address].[employer].com. Stool STOOL SPECIMEN / Unknown 02/02/2023 11:45 PM CDT 02/06/2023 10:47 PM CDT Misti Manzano EQUAL OPPORTUNITY ASSISTANT BODY FLUIDS AND STOOLS Ed ited Result - Final [employer] CLIA # [id number] [address], [address] [place] [address] from Last 3 Months or Most Recently Relevant to Health Maintenance Additional Health Concerns Active Problems Noted Date Diagnosed Date Heart Failure Problem 12/19/2024 Insurance MEDICAID [facility] DUAL COMPLETE HMO DSNP [facility] [id number] Advance Directives For more information, please contact: [phone] * Full Code (Latest Code Status on File) Date Activated Date Inactivated Comments 12/11/2024 2:32 AM 12/18/2024 4:59 PM * Full Code Date Activated Date Inactivated Comments 12/06/2024 2:02 PM 12/11/2024 2:08 AM * Full Code Date Activated Date Inactivated Comments 11/23/2024 4:11 AM 12/06/2024 1:25 PM * Full Code Date Activated Date Inactivated Comments 11/23/2024 4:03 AM 11/23/2024 4:11 AM Care Teams Die Maker Apprentice Relationship Specialty Start Date End Date Alberto Richey DO [address] [place] [address] PCP - General Family Practice 12/28/22
--- OUTSIDE RECORDS SUMMARY | 2025-03-22 18:44 | XMS_ITS | Encounter Summary ---
Author Organization [facility] Address [address] [place] [address] Care Team Providers Care Field Sales Agent Name Role Phone Alberto Richey DO Primary Care Provider Reason for Visit * Reason Comments Information Encounter Details Date Type Department Care Team (Late st Contact Info) Description 12/15/[address] [facility] [address] [phone] Alberto Richey DO [address] [address] Information Social History Tobacco Use Types Packs/Day Years Used Date Smoking Tobacco: Every Day Cigarettes 0.5 50 Smokeless Tobacco: Never Alcohol Use Standard Drinks/Week Comments Not Currently 0 (1 standard drink = 0.6 oz pur e alcohol) Sex and Gender Information Value Date Recorded Sex Assigned at Male 06/07/2024 10:10 AM CDT Legal Sex Male 2:07 PM CDT Gender Identity Male 06/07/2024 10:10 AM CDT Sexual Orientation Straight 06/07/2024 10 :10 AM CDT documented as of this encounter Miscellaneous Notes * Telephone Encounter - Imelda [place] - 12/15/2024 2:00 PM CDT Copied from [facility] #[id number]. Topic: Patient or Caregiver Communication Request >> December 15, 2024 1:59 PM Imelda Oropeza wrote: Patient or Caregiver calling to update Care team on status after a recent visit Caller: Tayo Newberry Patient/Caregiver Callback Number Telephone Information: Call Notes: patient says he is calling because he had a heart attack and is calling to let PCP knowand that's why he hasn't been in and says he's awaiting to go into facility care. Please call if needed. documented in this encounter Plan of Treatment Upcoming Encounters Date Type Department Care Team (Late st Contact Info) Description 04/03/2025 9:[address] [facility] Ultrasound [address] [place] [address] Gallito Daniels, GONSALO [address] [facility] [address] [place] [address] 05/01/2025 2:40 PM CDT Office Visit [facility] [address] [place] [address] Aniyah Gonzalez NP [address] [facility] [address] [place] [address] 05/09/2025 2:40 PM CDT Office Visit [facility] [address] [address] Alberto Richey DO [address] [place] [phone] 05/15/2025 3:30 PM CDT Office Visit [facility] Urology [place] [address] [place] [address] Gallito Daniels, GONSALO [address] [place] [address] documented as of this encounter Visit Diagnoses Not on filedocumented in this encounter Care Teams Field Sales Agent Relationship Specialty Start Date End Date Alberto Richey DO [address] [place] [address] PCP - General Family Practice 12/28/22 documented as of this encounter
--- OUTSIDE RECORDS SUMMARY | 2025-03-22 18:44 | XMS_ITS | Encounter Summary ---
Author Organization [facility] Address [address] [place] [address] Care Team Providers Care Distance Education Coordinator Name Role Phone Alberto Richey Primary Care Provider [phone] Encounter Details Date Type Department Care Team (Late st Contact Info) Description 01/24/2025 Results [facility] [address] [place] [address] Amrita uH FNP [address] [address] BASIC METABOLIC PANEL Social History Tobacco Use Types Packs/Day Years [...] as of this encounter Miscellaneous Notes * Result Encounter Note - Amrita Hu FNP - 01/24/2025 2:45 PM CDT Please let pt know his labs including potassium level are WNL on the new potassium supplement. Continue potassium as currently ordered. documented in this encounter Plan of Treatment Upcoming Encounters Date Type Department Care Team (Late st Contact Info) Description 04/03/2025 9:30 AM CDT Appointment [facility] Ultrasound [address] [place] [phone] Gallito Daniels NP [address] [place] [address] 05/01/2025 2:40 PM CDT Office Visit [facility] [address] [facility] [address] [place] [address] Aniyah Gonzalez NP [address] [place] [address] 05/09/2025 2:40 PM CDT Office Visit [facility] [address] [address] Alberto Richey DO [address] [address] 05/15/2025 3:30 PM CDT Office Visit [facility] Urology [place] [address] [facility] [address] [place] [address] Gallito Daniels NP [address] [facility] [address] [place] [address] documented as of this encounter Goals Goal Patient Goal Type Associated Problems Recent Progress Patient-Stated? Author Heart Failure Goal Care Plan Heart Failure Problem No Esme Nettles documented as of this encounter Visit Diagnoses Not on filedocumented in this encounter Additional Health Concerns Active Problems Noted Date Diagnosed Date Heart Failure Problem 12/19/2024 documented as of this encounter Care Teams Distance Education Coordinator Relationship Specialty Start Date End Date Alberto Richey DO [address] [place] [address] PCP - General Family Practice 12/28/22 documented as of this encounter
--- OUTSIDE RECORDS SUMMARY | 2025-03-22 18:44 | XMS_ITS | Encounter Summary ---
Author Organization [facility] Address [address] [place] [address] Care Team Providers Care Cdc Associate Name Role Phone Alberto Richey Primary Care Provider [phone] Reason for Visit * Reason Comments Patient Communication Medication Refill Encounter Details Date Type Department Care Team (Latest Contact Info) Description 01/14/2025 Results Follow-Up [facility] Medicine [place] [address] [address] Amrita Hu FNP [address] [address] TSH, COMPREHENSIVE METABOLIC PANEL, CBC WITH DIFFERENTIAL Social History Tobacco Use Types Packs/Day Years [...] encounter Miscellaneous Notes * Telephone Encounter - Ailyn Alford - 01/19/2025 12:57 PM CDT Copied from [facility] #[id number]. Topic: Medication Request >> Jan 19, 2025 12:54 PM Ailyn Harvey wrote: Caller Name: Tayo Newberry Callback Number: Telephone Information: Medication (Ask patient/caregiver to spell if possible): jardiance, plavix, amiodarone Note: All medication prescriptions can be requested using one [facility] Preferred Pharmacy: The patient's preferred pharmacy is [address] [facility] [address] [facility] [address] [facility]. Call Notes: Caller is checking the status of a prescription request sent on date 01/15/25 Review the medication to determine if prescription has been sent to the pharmacy. Has the prescription been sent to the pharmacy? No, more than 48 hours since prescription request sent to clinic Is there an encounter open? Yes * Telephone Encounter - Emily Lopez LPN - 01/15/2025 9:37 AM CDT Medication Refill Request Last Fill Date: percocet 12/21/24; zanaflex 11/06/24 x 5 refills; midodrine 12/18/24; jardiance 12/19/24; plavix 12/07/24; lasix 12/18/24; Midodrine 12/07/24 Recent and Future Visits: Recent Visits Date Type Provider Dept 01/11/25 Office Visit Amrita Hu FNP [facility] 11/17/24 Office Visit Raegan Nuñez FNP [facility] 07/27/24 Office Visit Alberto Richey, [facility] 06/02/24 Office Visit Raegan Nuñez FNP [facility] 04/26/24 Office Visit Alberto Richey, [facility] 04/07/24 Office Visit Alberto Richey, [facility] 01/21/24 Office Visit Alberto Richey DO [facility] 10/21/23 Office Visit Alberto Richey, DO [facility] 09/01/23 Office Visit Alberto Richey, DO [facility] Showing recent visits within past 540 days with a meds authorizing provider and meeting all other requirements Future Appointments Date Type Provider Dept 02/19/25 Appointment Belle Valentin, STAFF ATTORNEY [facility] 05/09/25 Appointment Alberto Richey, [facility] Showing future appointments within next 365 days with a meds authorizing provider and meeting all other requirements * Telephone Encounter - Emily Lopze LPN - 01/15/2025 9:29 AM CDT 01/15/2025 9:29 AM Called and notified patient of results. Voiced understanding and appointments scheduled. Emily OCONNOR * Telephone Encounter - Felix Johnson - 01/15/2025 9:17 AM CDT Copied from [facility] #[id number]. Topic: CPA Information Request >> Jan 15, 2025 9:15 AM Felix Cordon wrote: Caller is returning phone call from clinic. Caller Name: Tayo Newberry Patient/Caregiver Callback Number: [phone] (mobile) Clinic Left Note In Chart Is there a note from the clinic requesting the caller be transferred when they call back? No Are the credentials of the caregiver who called the patient internal medicine doctor? Yes Call Notes: Communicated information that is documented in the note. Caller wants a call back from clinic. * Telephone Encounter - Emily Lopez LPN - 01/15/2025 8:52 AM CDT 01/15/2025 8:52 AM No answer. Left voice mail/message that patient/caregiver can return our call. If patient/caregivercalls back, contact center please inform caller to expect a return call from the clinic. Emily OCONNOR * Telephone Encounter - Emily Lopez LPN - 01/15/2025 8:52 AM CDT ----- Message from Amrita Hu sent at 01/14/2025 8:59 PM CDT ----- Please let pt know his labs look good except his potassium is alittle low on the Lasix. I don't seethat he is taking any potassium (please confirm with home meds and let me know). I sent a new Rx for potassium 20meq to take once daily; he needs this while taking the Lasix. Please have him schedulea lab visit for 1 week to recheck the BMP I ordered. Also, schedule a 1 month f/u visit with eitherpcp or collaborative BOWLING BALL GRADER AND MARKER. Let me know any questions. * Result Encounter Note - Amrita Hu FNP - 01/14/2025 8:59 PM CDT Please let pt know his labs look good except his potassium is alittle low on the Lasix. I don't seethat he is taking any potassium (please confirm with home meds and let me know). I sent a new Rx for potassium 20meq to take once daily; he needs this while taking the Lasix. Please have him schedulea lab visit for 1 week to recheck the BMP I ordered. Also, schedule a 1 month f/u visit with eitherpcp or collaborative BOWLING BALL GRADER AND MARKER. Let me know any questions. documented in this encounter Plan of Treatment Upcoming Encounters Date Type Department Care Team (Late st Contact Info) Description 04/03/2025 9:30 AM CDT Appointment [facility] [address] [place] [address] Gallito Daniels, GONSALO [address] [facility] [address] [place] [address] 05/01/2025 2:40 PM CDT Office Visit [facility] [address] [place] [address] Aniyah Gonzalez NP [address] [facility] [address] [place] [address] 05/09/2025 2:40 PM CDT Office Visit [facility] [address] [address] Alberto Richey DO [address] [place] [address] 05/15/2025 3:30 PM CDT Office Visit [facility] Urology [place] [address] [facility] [address] [place] [address] Gallito Daniels NP [address] [address] documented as of this encounter Goals Goal Patient Goal Type Associated Problems Recent Progress Patient-Stated? Author Heart Failure Goal Care Plan Heart Failure Problem No Esme Nettles documented as of this encounter Visit Diagnoses Diagnosis Dependent edema- Primary Edema Chronic bilateral low back pain with bilateral sciatica S/P laminectomy with spinal fusion Arthrodesis status Atherosclerosis of [place] coronary artery of [place] heart without angina pectoris ST elevation myocardial infarction involving left anterior descending (LAD) coronary artery (CMS/HCC) documented in this encounter Additional Health Concerns Active Problems Noted Date Diagnosed Date Heart Failure Problem 12/19/2024 documented as of this encounter Care Teams Cdc Associate Relationship Specialty Start Date End Date Alberto Richey DO [address] [place] [address] PCP - General Family Practice 12/28/22 documented as of this encounter
--- NOTE | 2025-03-22 19:10 | XRR_ITS ---
PROCEDURE INFORMATION: Exam: XR Chest Exam date and time: 03/22/2025 7:18 PM Age: 70 years old Clinical indication: Shortness of breath; Additional info: SOB TECHNIQUE: Imaging protocol: Radiologic exam of the chest. Views: 1 view. COMPARISON: CR XR chest 1V portable [id number] 07/25/2022 8:14 AM FINDINGS: Lungs: See Soft tissues finding. Pleural spaces: Unremarkable. No pleural effusion. No pneumothorax. Heart/Mediastinum: Unremarkable. No cardiomegaly. Vasculature: Aortic atherosclerosis. Bones/joints: Postsurgical changes of the lower cervical spine. Soft tissues: Probable skin fold overlying the right mid lung. Left lung base/costophrenic angle not clearly visualized, can not exclude infiltrate. XR/XR chest 1V portable [id number] IMPRESSION: Probable skin fold overlying the right mid lung. Left lung base/costophrenic angle not clearly visualized, can not exclude infiltrate.
[2025-03-22 19:23] LABS: Hematocrit 44.0 % (37-53); Hemoglobin 13.70 g/dL (11.27-16.99); Mean Corpuscular HGB Conc 31.1 g/dL (30-55); Mean Corpuscular Hemoglobin 27.1 pg (27-33); Mean Corpuscular Volume 87.1 fl (82-101); Nucleated Red Blood Cells % 0.6 %; Platelet Count 230 10^3/cmm (157-399); Red Blood Count 5.05 10^6/uL (3.85-5.65); White Blood Count 7.82 10^3/uL (3.29-11.43)
[2025-03-22 19:34] LABS: Lactic Sepsis W/Reflex 3.9 mmol/L (0.5-2.2)
[2025-03-22 19:44] LABS: NT Pro B Type Natriuretic Pept 4823 pg/mL (0-125); Procalcitonin 0.11 ng/mL (0-0.5)
[2025-03-22 19:55] LABS: Alanine Aminotransferase 687 U/L (0-41); Albumin Level 3.4 g/dL (3.5-5.2); Alkaline Phosphatase 337 U/L (40-130); Anion Gap 20.1 (5-19); Aspartate Amino Transferase 611 U/L (0-40); Blood Urea Nitrogen 40 mg/dL (8-23); Calcium 8.6 mg/dL (8.5-10.5); Carbon Dioxide 19 mmol/L (22-29); Chloride 97 mmol/L (98-107); Globulin 3.2 g/dL (1.3-4.6); Glucose 120 mg/dL (65-115); Magnesium 2.4 mg/dL (1.7-2.3); Osmolality Calculated 285 mOsm/kg (285-295); Potassium 4.1 mmol/L (3.5-5.1); Sodium 132 mmol/L (136-145); Total Protein 6.6 g/dL (6.6-8.7)
[2025-03-22 20:01] LABS: ABG PCO2 33.6 mmHg (35-45); ABG PH Result 7.46 (7.35-7.45); Arterial Blood Gas Hematocrit 43.1 % (42-52); Blood Gas Allen Test Pos; Blood Gas LPM 2.0 %; Blood Gas Operator Identificat gerca; Blood Gas Sample Site Radial, right; Blood Gas Sample Type Arterial; Carboxyhemoglobin 1.6 %THgb (0.4-20.1); HCO3 ABG 24.0 mmol/L (22-26); Methemoglobin 0.9 % (0.4-1.5); PO2 ABG 72.4 mmHg (80.0-100.0); PO2 FiO2 Ratio Arterial Blood 258
--- NOTE | 2025-03-22 20:19 | USR_ITS ---
PROCEDURE INFORMATION: Exam: US Abdomen, Limited; Right Upper Quadrant Exam date and time: 03/22/2025 8:29 PM Age: 70 years old Clinical indication: Other: Elevated lfts; Additional info: Elevated bili and liver enzymes TECHNIQUE: Imaging protocol: Real time ultrasound of the abdomen with image documentation. Limited exam focused on the right upper quadrant. COMPARISON: CT lumbar spine wo con* [id number] 07/25/2022 3:55 AM FINDINGS: Liver: Normal. No masses. Gallbladder: Layering sludge and thickened gallbladder wall without stones, Mills's sign negative. Biliary ducts: Normal. No stones. No dilation. Pancreas: Visualized pancreas is unremarkable. Right kidney: Normal. No mass. No hydronephrosis. Mild ascites adjacent to the liver. Small right pleural effusion. US/US abdomen limited [id number] IMPRESSION: Layering sludge and thickened gallbladder wall without stones, Mills's sign negative. Mild ascites adjacent to the liver. Small right pleural effusion.
--- NOTE | 2025-03-22 20:20 | W.ED.WEAKNES ---
HPI - Weakness General: Chief complaint: Weakness Stated complaint: WEAKNESS - SOB Time Seen by Provider: 03/22/25 18:34 History of Present Illness: 70-year-old man comes in complaining of feeling cold, weakness, shortness of breath. History is assisted by caregiver. He also is speaking in broken sentences which is limiting the history somewhat. He is tachypneic labored. This been going on for about 3 days or has been feeling significantly worse. His baseline is that he can transfer and use the power chair most the time to get around but can take a few steps. Last 3 days he is previous been laying in her counter with his feet up unable to assist much or move around. Appetite has been decreased as well. No known fever, has had chills and feeling cold. Does report constipation. Otherwise review of systems unremarkable Related Data Home Medications ?Medication ?Instructions ?Recorded ?Confirmed apixaban 5 mg tablet (Eliquis) 5 mg PO BID 03/05/22 07/25/22 duloxetine 30 mg capsule,delayed 30 mg PO DAILY 03/05/22 07/25/22 release gabapentin 600 mg tablet 600 mg PO QID 03/05/22 07/25/22 levothyroxine 112 mcg tablet 112 mcg PO DAILY 03/05/22 07/25/22 tizanidine 4 mg tablet 4 mg PO BID PRN Muscle Spasm 03/05/22 07/25/22 hydrocodone 10 mg-acetaminophen 1 tab PO 6XD PRN Pain 07/25/22 07/25/22 325 mg tablet Previous Rx's ?Medication ?Instructions ?Recorded albuterol sulfate 90 mcg/actuation 2 inh inhalation Q8H PRN shortness 03/08/22 aerosol inhaler of breath or wheezing #8.5 grams fluticasone fur. 100 mcg-umeclid 1 inh inhalation DAILY #60 ea 03/08/22 62.5 mcg-vilant 25 mcg inhalat.powder (Trelegy Ellipta) furosemide 20 mg tablet (Lasix) 20 mg PO DAILY PRN edema #60 tabs 03/08/22 cyanocobalamin (vitamin B-12) 500 mcg (1/2 x 1,000 mcg) PO DAILY 07/29/22 1,000 mcg tablet (Vitamin B-12) #30 tabs tramadol 50 mg tablet 50 mg PO Q12H PRN pain #14 tabs 07/29/22 Allergies Allergy/AdvReac Type Severity Reaction Status Date / Time Penicillins Allergy Unknown Verified 11/01/24 03:52 Review of Systems General: Reports: 10 or more systems reviewed and unremarkable except in HPI and below PFSH ED PFSH: Medical History (Updated 03/22/25 @ 22:18 by Thom Benjamin MD) Back pain Wheelchair bound Pulmonary embolism DVT (deep venous thrombosis) Hypothyroidism Atrial fibrillation Cellulitis Pneumonia Surgical History History of tonsillectomy H/O cervical spine surgery Social History Smoking and tobacco/nicotine status: never used tobacco/nicotine Alcohol intake: never Substance/Drug Use: never Physical Exam Const: COMMON NORMALS: average body habitus, patient oriented x3, alert and well nourished; negative for healthy appearing GENERAL APPEARANCE: well kempt, well developed, in distress, lethargic, ill appearing and frail appearing ORIENTATION/CONSCIOUSNESS: Yes lethargic HENMT: COMMON NORMALS: normocephalic, atraumatic, external ears normal and moist oral mucous membranes HEAD & SCALP: normocephalic and atraumatic EXTERNAL EAR: Yes external ears normal Eye: COMMON NORMALS: Equal, round and reactive pupils present, EOMs intact bilaterally and conjunctivae normal CONJUNCTIVA: Yes conjunctivae normal PUPIL: Yes Equal, round and reactive pupils present Neck/C-Spine: COMMON NORMALS: full ROM, no lymphadenopathy and supple Chest: CHEST: Yes Symmetrical chest wall rise and No Surgical scars present (Chest) Resp: COMMON NORMALS: normal respiratory effort, No retractions, No use of accessory muscles and clear to auscultation bilaterally AUSCULTATION: clear to auscultation bilaterally Cardio: COMMON NORMALS: regular rate, regular rhythm, S1 normal heart sound present, S2 normal heart sound present, No gallops present (Cardio), No clicks present (Cardio), No murmurs present (Cardio) and No rub (Cardio) RATE: regular rate RHYTHM: regular rhythm HEART SOUNDS: S1 normal heart sound present, S2 normal heart sound present and no murmurs PERIPHERAL PULSES: other (Radial pulses 2+ and symmetric) GI: COMMON NORMALS: Soft to palpation, non-tender and no masses INSPECTION: No abdominal distension PALPATION: Yes Soft to palpation, No Guarding due to palpation present (GI) and No Rebound tenderness present : COMMON NORMALS: Yes no CVA tenderness BLADDER/KIDNEY EXAM: Yes no CVA tenderness Back/Pelvis: COMMON NORMALS: no CVA tenderness Extremity: COMMON NORMALS: normal to inspection, full ROM and capillary refill normal NARRATIVE EXTREMITY EXAM: Legs with mild edema, chronic skin changes due to lymphedema. Neuro: COMMON NORMALS: patient oriented x3 SENSORIUM/ORIENTATION: Yes alert and Yes lethargic Psych: APPEARANCE: Yes well kempt Skin: COMMON NORMALS: no wounds, turgor normal and no jaundice NARRATIVE SKIN EXAM: Rash across lower belly consistent with hives except the lesions are more patches of elevated slightly brown spots. GENERAL SKIN EXAM: turgor normal Course Vital Signs: Vital signs: Vital Signs Temperature 97.5 F L 03/22/25 18:39 Pulse Rate 84 03/22/25 21:30 Respiratory Rate 18 03/22/25 21:00 Blood Pressure 108/75 03/22/25 21:30 Pulse Oximetry 92 03/22/25 21:30 Oxygen Delivery Me thod Nasal Cannula 03/22/25 20:00 Oxygen Flow Rate 2 03/22/25 20:00 MDM - Weakness Medical Decision Making [place] male, generalized weakness found to have shortness of breath requiring oxygen along with tachypnea and accessory muscle use. Found to also have elevated liver enzymes with a bili of 3.5 and transaminitis. Ultrasound shows a thickened gallbladder wall at 7 mm, no pericholecystic fluid, negative Mills sign. No obvious choledocholithiasis with a common bile duct measuring normal. Does have layering sludge in the gallbladder. There is some small ascites around the liver capsule on the ultrasound. And based on my interpretation of his chest x-ray he does have a little bit of trace pleural effusions. For his volume overload we have given 60 of Lasix. Given the elevated bili and enzymes we will go ahead and start antibiotics. Have discussed the case with hospitalist at [facility] who is accepting the patient for transfer. Differential Diagnosis Likely sepsis; Unlikely acute myocardial infarction, hypoglycemia, rhabdomyolysis or dehydration Medical Records I reviewed the patient's medical records. Lab Data I reviewed the patient's lab results. 03/22/25 18:55 03/22/25 18:55 Radiology Impressions Chest X-Ray 03/22/25 19:10 IMPRESSION: Probable skin fold overlying the right mid lung. Left lung base/costophrenic angle not clearly visualized, can not exclude infiltrate. Abdomen Ultrasound 03/22/25 20:19 IMPRESSION: Layering sludge and thickened gallbladder wall without stones, Mills's sign negative. Mild ascites adjacent to the liver. Small right pleural effusion. Laboratory Results WBC 7.82 10^3/uL (3.29-11.43) 03/22/25 18:55 RBC 5.05 10^6/uL (3.85-5.65) 03/22/25 18:55 Hgb 13.70 g/dL (11.27-16.99) 03/22/25 18:55 Hct 44.0 % (37-53) 03/22/25 18:55 MCV 87.1 fl (82-101) 03/22/25 18:55 MCH 27.1 pg (27-33) 03/22/25 18: MCHC 31.1 g/dL (30-55) 03/22/25 18:55 RDW 16.4 % (12.1-15.1) H 03/22/25 18:55 Plt Count 230 10^3/cmm (157-399) 03/22/25 18:55 MPV 12.4 fL (7.4-10.4) H 03/22/25 18:55 Neut % (Auto) 76.3 % 03/22/25 18:55 Lymph % (Auto) 12.4 % 03/22/25 18:55 Nash % (Auto) 10.1 % 03/22/25 18:55 Eos % (Auto) 0.1 % 03/22/25 18:55 Baso % (Auto) 0.1 % 03/22/25 18:55 Neut # (Auto) 5.96 10^3/uL (1.8-7.7) 03/22/25 18:55 Lymph # (Auto) 1.0 10^3/uL (0.8-4.8) 03/22/25 18:55 Nash # (Auto) 0.8 10^3/uL (0.2-0.9) 03/22/25 18:55 Eos # (Auto) 0.0 10^3/uL (0.0-0.8) 03/22/25 18:55 Baso # (Auto) 0.0 10^3/uL (0.0-0.1) 03/22/25 18:55 Nucleated RBC % (auto) 0.6 % 03/22/25 18:55 Nucleated RBCs # 0.1 /100WBC 03/22/25 18:55 Specimen Type Arterial 03/22/25 19:49 Sample Site Radial, right 03/22/25 19:49 ABG pH 7.46 (7.35-7.45) H 03/22/25 19:49 ABG pCO2 33.6 mmHg (35-45) L 03/22/25 19:49 ABG pO2 72.4 mmHg (80.0-100.0) L 03/22/25 19:49 ABG PO2/FiO2 Ratio 258 03/22/25 19:49 ABG HCO3 24.0 mmol/L (22-26) 03/22/25 19:49 ABG Base Excess 0.7 mmol/L (-2.0-2.0) 03/22/25 19:49 Luisito Test Pos 03/22/25 19:49 Hematocrit 43.1 % (42-52) 03/22/25 19:49 Hgb O2 Saturation 92.7 % (95-100) L 03/22/25 19:49 Carboxyhemoglobin 1.6 %THgb (0.4-20.1) 03/22/25 19:49 Methemoglobin 0.9 % (0.4-1.5) 03/22/25 19:49 Total Hemoglobin 14.1 g/dL (14-18) 03/22/25 19:49 O2 Delivery Device Nc 03/22/25 19:49 O2 Liters/Min 2.0 % 03/22/25 19:49 FiO2 28.0 % 03/22/25 19:49 Computer Patternmaker ID [email or web address] 03/22/25 19:49 Sodium 132 mmol/L (136-145) L 03/22/25 18:55 Potassium 4.1 mmol/L (3.5-5.1) 03/22/25 18:55 Chloride 97 mmol/L (98-107) L 03/22/25 18:55 Carbon Dioxide 19 mmol/L (22-29) L 03/22/25 18:55 Anion Gap 20.1 (5-19) H 03/22/25 18:55 BUN 40 mg/dL (8-23) H 03/22/25 18:55 Creatinine 1.3 mg/dL (0.7-1.2) H 03/22/25 18:55 GFR Calculation Not Reportable 03/22/25 18:55 Glucose 120 mg/dL (65-115) H 03/22/25 18:55 POC Glucose 114 mg/dL (70-110) H 03/22/25 21:28 Calculated Osmolality 285 mOsm/kg (285-295) 03/22/25 18:55 Lactic Acid 3.9 mmol/L (0.5-2.2) H 03/22/25 18:55 Lactic Acid (Sepsis) 3.0 mmol/L (0.5-2.2) H 03/22/25 21:44 Calcium 8.6 mg/dL (8.5-10.5) 03/22/25 18:55 Magnesium 2.4 mg/dL (1.7-2.3) H 03/22/25 18:55 Total Bilirubin 3.5 mg/dL (0.15-1.2) H 03/22/25 18:55 AST 611 U/L (0-40) H 03/22/25 18:55 ALT 687 U/L (0-41) H 03/22/25 18:55 Alkaline Phosphatase 337 U/L (40-130) H 03/22/25 18:55 NT-Pro-B Natriuret Pep 4823 pg/mL (0-125) H 03/22/25 18:55 Total Protein 6.6 g/dL (6.6-8.7) 03/22/25 18:55 Albumin 3.4 g/dL (3.5-5.2) L 03/22/25 18:55 Globulin 3.2 g/dL (1.3-4.6) 03/22/25 18:55 Procalcitonin 0.11 ng/mL (0-0.5) 03/22/25 18:55 Urine Color Dark yellow (Yellow) A 03/22/25 20:09 Urine Appearance Cloudy (CLEAR) A 03/22/25 20:09 Urine pH 5.5 (5-7) 03/22/25 20:09 Ur Specific [place] 1.015 (1.005-1.030) 03/22/25 20:09 Urine Protein 1+ (Negative) A 03/22/25 20:09 Urine Glucose (UA) Negative (Normal) 03/22/25 20:09 Urine Ketones Negative (Negative) 03/22/25 20:09 Urine Blood Non-haemolysed trace (Negative) 03/22/25 20:09 Urine Nitrate Negative (Negative) 03/22/25 20:09 Urine Bilirubin Negative (Negative) 03/22/25 20:09 Urine Urobilinogen 1.0 mg/dL (Negative) 03/22/25 20:09 Ur Leukocyte Esterase 2+ (Negative) A 03/22/25 20:09 Urine RBC 5-10 /hpf (0-2) H 03/22/25 20:09 Urine WBC 15-25 /hpf (0-5) H 03/22/25 20:09 Ur Squamous Epith Cells 0-5 /hpf (0-5) 03/22/25 20:09 Amorphous Sediment Not Reportable 03/22/25 20:09 Urine Bacteria None seen /hpf (NONE) 03/22/25 20:09 Hyaline Casts 15.28 /lpf 03/22/25 20:09 Urine Yeast 3+ /hpf H 03/22/25 20:09 All radiology interpretation(s) finalized by discharge Discharge Plan Discharge Patient Disposition: Xfer Short-Term Hosp Clinical Impression: MEET (acute kidney injury), Elevated bilirubin, Elevated lactic acid level, Volume overload, Transaminitis, Sludge in gallbladder, Acute hyponatremia Condition: Stable Referrals: Alberto Richey DO [Primary Care Provider] Print Language: [place] Zealander Coding Level of Care Code ED [id number] Java Developer for Shailesh Ewing
[2025-03-22 20:24] LABS: Glucose Urine UA Negative (Normal); Nitrate Urine Negative (Negative); Specific Gravity, Urine 1.015 (1.005-1.030)
[2025-03-22 20:26] LABS: Add Urine Microscopic? YES
[2025-03-22] MEDS: FUROsemide 10 mg/mL SDV 10mL 60 MG IVP (20:48)
[2025-03-22 21:08] LABS: Reflex Lactate Order REFLEX LACTIC ORDERD
[2025-03-22] MEDS: oxyCODONE-APAP 10-325 mg Tablet 1 TAB PO (21:49)
[2025-03-22 22:05] LABS: Lactic Acid level (Lactate) 3.0 mmol/L (0.5-2.2)
[2025-03-22] MEDS: cefTRIAXone 1,000 mg SDV 1000 MG IVP (23:08)
[2025-03-22] MEDS: metroNIDAZOLE IV 500 MG/100 ML PREMIX 100 MG IV (23:09)
[2025-03-23] VITALS (39 sets, daily range): BP systolic 68–102; BP diastolic 45–59; PULSE 55–64; RESP 12–22; O2SAT 93–97
[2025-03-23] MEDS: norepinephrine 4 MG/250 ML BAG 30 MG IV (02:45)
== END 2025-03-23 04:24 | disposition short-term general hospital (02) ==
PROVIDERS: Emergency Provider Emergency Medicine; PCP Family Medicine
DX: N17.9 Acute kidney failure, unspecified (principal); E80.7 Disorder of bilirubin metabolism, unspecified; R74.01 Elevation of levels of liver transaminase levels; E87.70 Fluid overload, unspecified; K82.8 Other specified diseases of gallbladder; E87.1 Hypo-osmolality and hyponatremia
CPT/HCPCS: 36415; 36416; 36600; 71045; 76705; 80053; 81001; 82805; 82962; 83605; 83735; 83880; 84145; 85025; 87086; 94640; 96365; 96367; 96375; 99285; J0696; J1938; J3490; J7050; J9999